=== PATIENT | male | born 1960 | race American Indian/Alaskan Native ===

== ENCOUNTER 2017-07-19 11:45 | Inpatient (IN) | payer OTHER ==
[2017-07-19] MEDS ORDERED: NACL 0.9% 500 ML 500 ML IV ONE (12:04)
[2017-07-19 12:35] LABS: Hematocrit 29.5 % (35.5-45.6); Hemoglobin 10.2 gm/dl (11.8-15.2); Mean Corpuscular HGB Conc 35 % (32-34); Mean Corpuscular Hemoglobin 32 pg (28-32); Mean Corpuscular Volume 93 fl (84-94); Red Blood Count 3.18 M/mm3 (3.65-5.03); Red Cell Distribution Width 17.8 % (13.2-15.2); White Blood Count 9.9 K/mm3 (4.5-11.0)
[2017-07-19 12:52] LABS: Creatine Kinase MB 2.3 ng/mL (0.0-4.0)
[2017-07-19 12:53] LABS: Alanine Aminotransferase 14 units/L (7-56); Albumin 2.1 g/dL (3.9-5); Albumin/Globulin Ratio 0.4 %; Alkaline Phosphatase 143 units/L (35-129); Anion Gap 20 mmol/L; BUN/Creatinine Ratio 83.33; Blood Urea Nitrogen 75 mg/dL (9-20); Calcium 7.9 mg/dL (8.4-10.2); Carbon Dioxide 20 mmol/L (22-30); Chloride 96.6 mmol/L (98-107); Creatine Kinase 64 units/L (55-170); Glucose 101 mg/dL (75-100); Potassium 4.5 mmol/L (3.6-5.0); Sodium 132 mmol/L (137-145); Total Protein 7.1 g/dL (6.3-8.2)
[2017-07-19 12:56] LABS: INR 6.7 (0.87-1.13); Partial Thromboplastin Time 80.4 Sec. (24.2-36.6)
--- NOTE | 2017-07-19 13:01 | XRay Report ---
PORTABLE CHEST INDICATION: Shortness of breath. History of CHF. COMPARISON: None similar at this institution. FINDINGS: Portable, frontal chest radiograph demonstrates moderate cardiomegaly and increased hazy bronchovascular markings centrally, possibly slight congestive. Right hemidiaphragm slightly elevated. Left AICD with single ventricular lead. Intact bones. CONCLUSION: Cardiomegaly and possible slight central congestion, as described. Thank you for the opportunity to participate in this patient's care.
[2017-07-19 13:12] LABS: Basophils % (Manual) 0 % (0.0-1.8); Blastocytes % (Manual) 0 %; Eosinophils % (Manual) 0 % (0.0-4.3)
[2017-07-19 13:14] LABS: Anisocytosis Few; Large Platelets Few; Macrocytosis 1+; Spherocytes Rare; Target Cells 2+
[2017-07-19 13:15] LABS: Burr Cells Rare; Diff Status Complete
[2017-07-19 13:18] LABS: Platelet Count 194 K/mm3 (140-440)
--- NOTE | 2017-07-19 13:43 | Emergency Department Report ---
ED General Adult HPI - General Chief complaint: Recheck/Abnormal Lab/Rx Stated complaint: ELEV PT/INR Time Seen by Provider: 07/19/17 12:27 Source: patient, EMS Mode of arrival: Wheelchair Limitations: No Limitations - History of Present Illness Initial comments: 56-year-old Male with past medical history A. fib, cardiomyopathy, defibrillator , and CHF presents to the hospital complains of supratherapeutic INR. Patient is in police custody and is a prisoner at the [facility]. They report an INR of 9.3. Just complains of generalized body pain and right hand swelling. Pain is moderate to severe, with palpation and movement. No relieving factors reported. No complaints of chest pain or shortness of breath - Related Data Allergies Allergy/AdvReac Type Severity Reaction Status Date / Time No Known Allergies Allergy Unverified 07/19/17 11:57 ED Review of Systems ROS: Stated complaint: ELEV PT/INR Other details as noted in HPI Comment: All other systems reviewed and negative Other: Constitutional: No fevers chills Eyes: No eye pain visual changes ENT: No ear pain or throat pain Neck: Denies pain Respiratory: Denies cough wheezing Cardiovascular: Denies chest pain, palpitations, syncope GI: Denies abdominal pain, nausea, vomiting, diarrhea : Denies dysuria Musculoskeletal: generalized pain Skin: Denies rash, lesions, erythema Neurologic: Denies headache, numbness, weakness Psychiatric: Denies suicidal ideation, hallucinations ED Past Medical Hx - Past Medical History Previous Medical History?: Yes Hx Congestive Heart Failure: Yes Additional medical history: AFIB - Surgical History Hx Internal Defibrillator: Yes - Social History Smoking Status: Never Smoker Substance Use Type: None ED Physical Exam - General Limitations: No Limitations - Other Other exam information: General: No limitations, patient is alert in no acute distress Head exam: Atraumatic, normocephalic Eyes exam: Normal appearance ENT: Moist mucous membrane, normal oropharynx Neck exam: Normal inspection, full range of motion, no meningismus nontender Respiratory exam: Patient lying in bed about 30 without respiratory distress. Diminished breath sounds at the bases Cardiovascular: Bradycardic irregular rhythm Abdomen: Soft, nondistended, and nontender, with normal bowel sounds, no rebound, or guarding Extremity: Swelling to right hand, mild warmth, and generalized tenderness extending into the wrist. Bilateral lymphedema Back: Normal Inspection, full range of motion, no tenderness Neurologic: Alert, oriented x3, cranial nerves intact, no motor or sensory deficit, stuttering speech Psychiatric: normal affect, normal mood Skin: Warm, dry, intact ED Course Vital Signs 07/19/17 07/19/17 07/19/17 11:58 13:40 14:56 Temperature 97.5 F L 98.3 F Pulse Rate 52 L 60 62 Respiratory 20 15 16 Rate Blood Pressure 83/55 93/61 86/63 O2 Sat by Pulse 100 98 97 Oximetry - Reevaluation(s) Reevaluation #1: 07/19/17 BP unchanged after 500ml IVF. further fluid held - Consultations Consultation #1: 07/19/17 Cardiology consulted and examined pt at bedside. Yod[facility] Lopez ED Medical Decision Making - Lab Data Result diagrams: 07/19/17 12:14 07/19/17 12:14 Lab Results 07/19/17 07/19/17 07/19/17 Range/Units 12:14 12:14 12:14 WBC 9.9 (4.5-11.0) K/mm3 RBC 3.18 L (3.65-5.03) M/mm3 Hgb 10.2 L (11.8-15.2) gm/dl Hct 29.5 L (35.5-45.6) % MCV 93 (84-94) fl MCH 32 (28-32) pg MCHC 35 H (32-34) % RDW 17.8 H (13.2-15.2) % Plt Count 194 (140-440) K/mm3 Add Manual Diff Complete Total Counted 100 Seg Neutrophils % Curve Cleaner Seg Neuts % (Manual) 97.0 H (40.0-70.0) % Band Neutrophils % 0 % Lymphocytes % (Manual) 1.0 L (13.4-35.0) % Reactive Lymphs % (Man) 0 % Monocytes % (Manual) 2.0 (0.0-7.3) % Eosinophils % (Manual) 0 (0.0-4.3) % Basophils % (Manual) 0 (0.0-1.8) % Metamyelocytes % 0 % Myelocytes % 0 % Promyelocytes % 0 % Blast Cells % 0 % Nucleated RBC % Not Reportable Seg Neutrophils # Man 9.6 H (1.8-7.7) K/mm3 Band Neutrophils # 0.0 K/mm3 Lymphocytes # (Manual) 0.1 L (1.2-5.4) K/mm3 Abs React Lymphs (Man) 0.0 K/mm3 Monocytes # (Manual) 0.2 (0.0-0.8) K/mm3 Eosinophils # (Manual) 0.0 (0.0-0.4) K/mm3 Basophils # (Manual) 0.0 (0.0-0.1) K/mm3 Metamyelocytes # 0.0 K/mm3 Myelocytes # 0.0 K/mm3 Promyelocytes # 0.0 K/mm3 Blast Cells # 0.0 K/mm3 WBC Morphology Not Reportable Hypersegmented Neuts Not Reportable Hyposegmented Neuts Not Reportable Hypogranular Neuts Not Reportable Smudge Cells Not Reportable Toxic Granulation Not Reportable Toxic Vacuolation Not Reportable Dohle Bodies Not Reportable Pelger-Huet Anomaly Not Reportable Rosalio Rods Not Reportable Platelet Estimate Appears normal Clumped Platelets Not Reportable Plt Clumps, EDTA Not Reportable Large Platelets Few Giant Platelets Not Reportable Platelet Satelliting Not Reportable Plt Morphology Comment Not Reportable RBC Morphology Not Reportable Dimorphic RBCs Not Reportable Polychromasia Not Reportable Hypochromasia Not Reportable Poikilocytosis Not Reportable Anisocytosis Few Microcytosis Not Reportable Macrocytosis 1+ Spherocytes Rare Pappenheimer Bodies Not Reportable Sickle Cells Not Reportable Target Cells 2+ Tear Drop Cells Not Reportable Ovalocytes Not Reportable Helmet Cells Not Reportable [place] Bodies Not Reportable [place] Rings Not Reportable Springer Cells Rare Bite Cells Not Reportable Crenated Cell Not Reportable Elliptocytes Not Reportable Acanthocytes (Spur) Not Reportable Rouleaux Not Reportable Hemoglobin C Crystals Not Reportable Schistocytes Not Reportable Malaria parasites Not Reportable [place] Bodies Not Reportable Hem Pathologist Commnt Sent to pathology PT 59.3 H (12.2-14.9) Sec. INR 6.70 H* (0.87-1.13) APTT 80.4 H* (24.2-36.6) Sec. Sodium 132 L (137-145) mmol/L Potassium 4.5 (3.6-5.0) mmol/L Chloride 96.6 L (98-107) mmol/L Carbon Dioxide 20 L (22-30) mmol/L Anion Gap 20 mmol/L BUN 75 H (9-20) mg/dL Creatinine 0.9 (0.8-1.5) mg/dL Estimated GFR > 60 ml/min BUN/Creatinine Ratio 83.33 % Glucose 101 H (75-100) mg/dL Calcium 7.9 L (8.4-10.2) mg/dL Total Bilirubin 10.30 H (0.1-1.2) mg/dL AST 29 (5-40) units/L ALT 14 (7-56) units/L Alkaline Phosphatase 143 H (35-129) units/L Total Creatine Kinase 64 (55-170) units/L CK-MB (CK-2) 2.3 (0.0-4.0) ng/mL CK-MB (CK-2) Rel Index 3.5 (0-4) Troponin T 0.014 (0.00-0.029) ng/mL NT-Pro-B Natriuret Pep (0-900) pg/mL Total Protein 7.1 (6.3-8.2) g/dL Albumin 2.1 L (3.9-5) g/dL Albumin/Globulin Ratio 0.4 % Blood Type Antibody Screen 07/19/17 07/19/17 Range/Units 12:14 14:24 WBC (4.5-11.0) K/mm3 RBC (3.65-5.03) M/mm3 Hgb (11.8-15.2) gm/dl Hct (35.5-45.6) % MCV (84-94) fl MCH (28-32) pg MCHC (32-34) % RDW (13.2-15.2) % Plt Count (140-440) K/mm3 Add Manual Diff Total Counted Seg Neutrophils % Seg Neuts % (Manual) (40.0-70.0) % Band Neutrophils % % Lymphocytes % (Manual) (13.4-35.0) % Reactive Lymphs % (Man) % Monocytes % (Manual) (0.0-7.3) % Eosinophils % (Manual) (0.0-4.3) % Basophils % (Manual) (0.0-1.8) % Metamyelocytes % % Myelocytes % % Promyelocytes % % Blast Cells % % Nucleated RBC % Seg Neutrophils # Man (1.8-7.7) K/mm3 Band Neutrophils # K/mm3 Lymphocytes # (Manual) (1.2-5.4) K/mm3 Abs React Lymphs (Man) K/mm3 Monocytes # (Manual) (0.0-0.8) K/mm3 Eosinophils # (Manual) (0.0-0.4) K/mm3 Basophils # (Manual) (0.0-0.1) K/mm3 Metamyelocytes # K/mm3 Myelocytes # K/mm3 Promyelocytes # K/mm3 Blast Cells # K/mm3 WBC Morphology Hypersegmented Neuts Hyposegmented Neuts Hypogranular Neuts Smudge Cells Toxic Granulation Toxic Vacuolation Dohle Bodies Pelger-Huet Anomaly Rosalio Rods Platelet Estimate Clumped Platelets Plt Clumps, EDTA Large Platelets Giant Platelets Platelet Satelliting Plt Morphology Comment RBC Morphology Dimorphic RBCs Polychromasia Hypochromasia Poikilocytosis Anisocytosis Microcytosis Macrocytosis Spherocytes Pappenheimer Bodies Sickle Cells Target Cells Tear Drop Cells Ovalocytes Helmet Cells [place] Bodies [place] Rings Springer Cells Bite Cells Crenated Cell Elliptocytes Acanthocytes (Spur) Rouleaux Hemoglobin C Crystals Schistocytes Malaria parasites [place] Bodies Hem Pathologist Commnt PT (12.2-14.9) Sec. INR (0.87-1.13) APTT (24.2-36.6) Sec. Sodium (137-145) mmol/L Potassium (3.6-5.0) mmol/L Chloride (98-107) mmol/L Carbon Dioxide (22-30) mmol/L Anion Gap mmol/L BUN (9-20) mg/dL Creatinine (0.8-1.5) mg/dL Estimated GFR ml/min BUN/Creatinine Ratio % Glucose (75-100) mg/dL Calcium (8.4-10.2) mg/dL Total Bilirubin (0.1-1.2) mg/dL AST (5-40) units/L ALT (7-56) units/L Alkaline Phosphatase (35-129) units/L Total Creatine Kinase (55-170) units/L CK-MB (CK-2) (0.0-4.0) ng/mL CK-MB (CK-2) Rel Index (0-4) Troponin T (0.00-0.029) ng/mL NT-Pro-B Natriuret Pep 7153 H (0-900) pg/mL Total Protein (6.3-8.2) g/dL Albumin (3.9-5) g/dL Albumin/Globulin Ratio % Blood Type O NEGATIVE Antibody Screen Negative - EKG Data -: EKG Interpreted by Me (afib rat 59, pvc's nonspecific intraventicular block.) - Radiology Data Radiology results: report reviewed (chest x-ray: Cardiomegaly a possible slight central congestion) - Medical Decision Making Plan to admit for furhter tx, cmg, chf, afib, mary, coumadin tox. - Differential Diagnosis CHF, Coumadin toxicity, A. fib, cardiac myopathy Critical Care Time: No Critical care attestation.: If time is entered above; I have spent that time in minutes in the direct care of this critically ill patient, excluding procedure time. ED Disposition Clinical Impression: Myalgia, Coumadin toxicity, Swelling of right hand, Cardiomegaly, Elevated BUN , Hypotension Disposition: [id number] OP ADMIT IP TO THIS HOSP Is pt being admited?: Yes Condition: Stable Time of Disposition: 13:40
--- NOTE | 2017-07-19 13:45 | Admit Criteria Form ---
Admission Criteria Documentation: GENERAL ADMISSION CRITERIA (Place 'X' for any and all applicable criteria): Admission is indicated for ANY ONE of the following: [ X]I. Hemodynamic instability as indicated by ANY ONE of the following(1)(2 )(3)(4)(5): [X ]a) Vital sign abnormality not readily corrected by appropriate treatment within 12 to 24 hours indicated by ANY ONE of the following: [ X]i) Hypotension [ ]ii) Symptomatic Tachycardia unresponsive to treatment (eg , analgesia, fluids, sedation as indicated) [ ]iii) Orthostatic vital sign changes unresponsive to treatment (eg, fluids) [ ]b) Vital sign abnormality that is severe indicated by ANY ONE of the following: [ ]i) Inadequate perfusion indicated by ANY ONE of the following: [ ]1) Lactic acidosis (greater than 2 mmol/L) [ ]2) New abnormal capillary refill (greater than 3 seconds) [ ]3) Other metabolic acidosis (arterial pH less than 7.35) not otherwise explained [ ]4) Reduced urine output [ ]5) Altered mental status [ ]6) Myocardial Ischemia [ ]v) Mean arterial pressure[A] less than 60 mm Hg [ ]vi) Mean arterial pressure[A] less than 70 mm Hg after 30 minutes of appropriate treatment (eg, fluid resuscitation) [ ]vii) IV inotropic or vasopressor medication required to maintain adequate blood pressure or perfusion [ ]viii) Sustained heart rate greater than 120 beats per minute in adult or child 6 years or older[B]] [ ]II. Hypertension requiring inpatient treatment as indicated by ANY ONE of the following(6)(7)(8): [ ]a) SBP greater than 220 mm Hg or DBP greater than 120 mm Hg despite treatment [ ]b) SBP greater than 140 mm Hg or DBP greater than 100 mm Hg with evidence of acute end organ damage as indicated by ANY ONE of the following: [ ]i) Encephalopathy [ ]ii) Acute renal failure as indicated by new onset of ANY ONE of the following(9)(10)(11)(12)(13): [ ]1) A 3-fold rise in serum creatinine from baseline [ ]2) Serum creatinine greater than 4 mg/dL ( 354 micromoles/L) with acute rise greater than 0.5 mg/dL (44.2 micromoles/L) [ ]3) Reduction of more than 75% in estimated glomerular filtration rate from baseline [ ]4) Estimated glomerular filtration rate less than 35 mL/min/1.73m2 (0.59 mL/sec/1.73m2) in child up to 18 years of age [ ]5) Cessation of urine output indicated by ALL of the following: [ ]A. Adequate volume status [ ]B. Inadequate urine output as indicated by ANY ONE of the following: [ ]a. Urine output less than 0.3 mL/kg/hr for 24 hours [ ]b. Anuria (urine output less than 0.1 mL/kg/hr) for 12 hours [ ]iii) Aortic dissection [ ]iv) Myocardial ischemia [ ]v) Left ventricular heart failure [ ]vi) Retinal hemorrhage [ ]vii) Other significant finding [ ]c) Hypertension in child requiring inpatient treatment as indicated by ALL of the following(14)(15)(16): [ ]i) Outpatient treatment not effective, not available, or not appropriate [ ]ii) SBP or DBP greater than 95th percentile for age [ ]iii) Evidence of acute end organ damage as indicated by ANY ONE of the following: [ ]1) Altered mental status [ ]2) Acute renal failure as indicated by new onset of ANY ONE of the following(9)(10)(11)(12)(13): [ ]A. A 3-fold rise in serum creatinine from baseline [ ]B. Serum creatinine greater than 4 mg/dL (354 micromoles/L) with acute rise greater than 0.5 mg/dL (44.2 micromoles/L) [ ]C. Reduction of more than 75% in estimated glomerular filtration rate from baseline [ ]D. Estimated glomerular filtration rate less than 35 mL/min/1.73m2 (0.59 mL/sec/1.73m2)in child up to 18 years of age [ ]E. Cessation of urine output indicated by ALL of the following: [ ]a. Adequate volume status [ ]b. Inadequate urine output as indicated by ANY ONE of the following: [ ]1) Urine output less than 0.3 mL/kg/hr for 24 hours [ ]2) Anuria (urine output less than 0.1 mL/kg/hr) for 12 hours [ ]3) Severe headache [ ]4) Visual disturbance [ ]5) Retinal hemorrhage [ ]6) Other significant finding [ ]III. Acute cardiac or peripheral ischemia as indicated by ANY ONE of the following: [ ]a) Acute coronary syndrome(17)(18) [ ]b) Acute peripheral ischemia (eg, pulseless, cool, mottled, or cyanotic extremity)(19) [ ]IV. Cardiac arrhythmias or findings of immediate concern indicated by ANY ONE of the following(20)(21): [ ]a) Heart rhythms that are inherently dangerous or unstable indicated by ANY ONE of the following(22)(23)(24): [ ]i) Resuscitated ventricular fibrillation or cardiac arrest [ ]ii) Ventricular escape rhythm [ ]iii) Sustained ventricular tachycardia (30 seconds or more of ventricular rhythm at greater than 100 beats per minute) [ ]iv) Nonsustained ventricular tachycardia and ANY ONE of the following: [ ]1) Suspected cardiac ischemia as cause or consequence of ventricular tachycardia [ ]2) In setting of acute myocarditis [ ]b) Unstable cardiac conduction defects indicated by ANY ONE of the following(24)(25)(26): [ ]i) Type II second-degree atrioventricular block [ ]ii) Third-degree atrioventricular block [ ]iii) New-onset left bundle branch block with suspected myocardial ischemia [ ]c) Any heart rhythm and ANY ONE of the following(22)(23)(27)(28)( 29): [ ] i) Continuous long-term ECG monitoring needed (eg, initiation of drug requiring monitoring for more than 24 hours) [ ] ii) Patient has automatic implanted cardioverter defibrillator that is repeatedly firing, malfunctioning, or in need of immediate adjustment of settings beyond the scope of ambulatory or observation care. [ ]d) Heart rhythms of concern due to ANY ONE of the following: [ ]i) Hypotension [ ]ii) Respiratory distress [ ]iii) Association with other significant symptoms (eg, bradycardia with syncope or ongoing dizziness, supraventricular tachycardia with chest pain) (27)(28) (30) [ ] V. Severe heart failure as indicated by ANY ONE of the following ( 31)(32): [ ]a) Respiratory distress [ ]b) Hypotension [ ]c) Anasarca (refractory to outpatient therapy) [ ]d) Cardiac arrhythmias of immediate concern [ ]e) Myocardial ischemia [ ]. Respiratory abnormalities, including ANY ONE of the following(33)(34) (35)(36): [ ]a) Respiratory rate greater than 30 breaths per minute unresponsive to treatment [A] [ ]b) New saturation of arterial oxygen less than 90% [ ]c) New partial pressure of carbon dioxide greater than 44 mm Hg ( 5.9 kPa) [ ]d) Supplemental oxygen or respiratory treatments needed that are new or not performable at other levels of care [ ]e) New-onset cyanosis [ ]f) Inability to protect airway [ ]g) Chronic lung disease with severe deterioration (not responsive to emergency and observation care treatment as appropriate) as indicated by ANY ONE of the following(34)(36 ): [ ]i) SaO2 5% below baseline in patient with chronic hypoxemia [ ]ii) New requirement for supplemental oxygen to keep SaO2 at baseline or acceptable level [ ]iii) Required supplemental oxygen performable only in acute inpatient setting [ ]iv) Severe airflow or ventilation abnormalities [ ]v) Previously mobile patient unable to walk between rooms [ ]vi Inability to eat or sleep due to dyspnea [ ]vii) Rapid rate of exacerbation onset [ ]viii) Altered mental status ]VII. Severe airflow or ventilation abnormalities (not responsive to emergency and observation care treatment as appropriate) as indicated by ANY ONE of the following(33)(34)(35)(37): [ ]a) PCO2 greater than 42 mm Hg (5.6 kPa) and pH less than 7.35 (new ) [ ]b) Documented PCO2 increased more than 5 mm Hg (0.7 kPa) from disease baseline [ ]c) Airflow measurements [B] less than 60% of previous best or predicted (eg, peak expiratory flow rate less than 300 L/minute) despite intensive emergent treatment [C] [ ]d) Required respiratory treatments that are performable only in acute inpatient setting [ ]VIII. Impending or actual respiratory arrest ( Also use Respiratory Failure GRG for severe respiratory disease and long-term mechanical ventilation patients) [ ]IX. Neurologic abnormalities, including ANY ONE of the following: [ ]a) New findings that suggest ANY ONE of the following: [ ]i) [employer] infection(38) [ ]ii) Cerebral bleeding, ischemia, or vasospasm(39)(40) [ ]iii) Increased intracranial pressure, hydrocephalus, or cerebral edema(41)(42)(43) [ ]iv) Spinal cord injury(44) [ ]b) Uncontrolled seizures(45) [ ]c) New-onset coma (eg, Mena coma scale score less than 9) or unexplained abnormal mental status (eg, Williams coma scale score less than 14) [D](41)(46)(47) [ ]X. New-onset severe neurologic findings requiring inpatient care; examples include(42)(48)(49): [ ]a) Papilledema [ ]b) Cerebral edema [ ]c) Mass effect on CT scan [ ]XI. Suspected acute intra-abdominal process with peritoneal signs, abdominal mass, or similar findings (50)(51)(52) [ ]XII. Severe physiologic disorder remaining after emergency or observation level care (as appropriate) as indicated by ANY ONE of the following (53): [ ]a) Significant dehydration [ ]b) Diabetic ketoacidosis [ ]c) Hyperglycemic hyperosmolar state (eg, osmolality greater than 320 mOsm/kg (mmol/kg) [ ]d) Hypoglycemia [ ]e) Other (new) acid-base disorder with pH less than 7.35 or greater than 7.5(54) [ ]f) Thyroid storm (55) [ ]g) Myxedema coma (55) [ ]XIII. Abdominal abnormalities with ANY ONE of the following(56)(57): [ ]a) Absent bowel sounds with complete ileus [ ]b) Signs of intestinal obstruction or peritonitis [E] [ ]c) Nausea and vomiting that cannot be controlled with outpatient or observation care [ ]XIV. Acute renal failure as indicated by new onset of ANY ONE of the following(9)(10)(11)(12)(13): [ ]a) A 3-fold rise in serum creatinine from baseline [ ]b) Serum creatinine greater than 4 mg/dL (354 micromoles/L) with acute rise greater than 0.5 mg/dL (44.2 micromoles/L) [ ]c) Reduction of more than 75% in estimated glomerular filtration rate from baseline [ ]d) Estimated glomerular filtration rate less than 35 mL/min/ 1.73m2 (0.59 mL/sec/1.73m2) in child up to 18 years of age [ ]e) Cessation of urine output indicated by ALL of the following: [ ]i) Adequate volume status [ ]ii) Inadequate urine output as indicated by ANY ONE of the following: [ ]1) Urine output less than 0.3 mL/kg/hr for 24 hours [ ]2) Anuria (urine output less than 0.1 mL/kg/hr) for 12 hours [ ]XV. Significant uremic complications as indicated by ANY ONE of the following(58)(59)(60): [ ]a) Outpatient therapy is ineffective or not feasible for ANY ONE of the following: [ ]i) Severe heart failure [ ]ii) Severehypertension [ ]iii) Pleural effusion [ ]iv) Pericarditis or pericardial effusion [ ]b) Cardiac arrhythmias of immediate concern [ ]c) Intractable nausea or vomiting [ ]d) Recurrent seizures [ ]e) Encephalopathy [ ]f) Bleeding abnormalities (eg, platelet dysfunction) with active (eg, gastrointestinal) bleeding [ ]g) Dialysis indicated before long-term access or ambulatory arrangements can be made [ ]h) Significant metabolic or electrolyte abnormalities (eg, severe acidosis or hyperkalemia) [ ]XVI. High fever or other high-risk infection situation as indicated by ANY ONE of the following(61)(62)(63)(64): [ ]a) Outpatient and observation care antimicrobial treatment unavailable, not effective, or not appropriate [ ]b) Documented bacteremia [ ]c) Temperature greater than 40.5 degrees C (104.9 degrees F) ( oral) [ ]d) Temperature greater than 39.5 degrees C (103.1 degrees F) ( oral) or less than 36 degrees C (96.8 degrees F) (rectal) that does not respond to e treatment and observation care [ ] XVII. Temperature less than 95 degrees F (35 degrees C)(rectal)(65) [ ] XVIII. Severe nutritional abnormalities as indicated by ALL of the following (66)(67): [ ]a) Inability to tolerate or establish sufficient oral or other enteral nutrition in outpatient setting [ ]b) Parenteral nutrition regimen need that must be implemented on inpatient basis [ ] XIX. Severe electrolyte abnormalities indicated by ALL of the following(68) (69)(70): [ ]a) Electrolytes and associated findings are not as expected for patient baseline or acceptable treatment effects. [ ]b) Severe abnormalities indicated by ANY ONE of the following: [ ]i) Sodium less than 130 mEq/L (mmol/L) (new) [ ]ii)Sodium less than 135 mEq/L (mmol/L) with ANY ONE of the following: [ ]1) Uncorrectable (to near normal or chronic baseline) after trial of outpatient and emergency treatment [ ]2) Altered mental status [ ]3) Seizures [ ]4) Severe medical etiology requiring inpatient management (eg, heart failure, hypovolemia) [ ]iii) Sodium greater than 155 mEq/L (mmol/L) [ ]iv) Sodium greater than 150 mEq/L (mmol/L) with ANY ONE of the following: [ ]1) Uncorrectable (to near normal or chronic baseline) with outpatient and emergency treatment [ ]2) Altered mental status [ ]3) Seizures [ ]4) Severe medical etiology (eg, hypovolemia, diabetes insipidus) [ ]v) Potassium less than 2.5 mEq/L (mmol/L) despite outpatient and emergency treatment [ ]vi) Potassium less than 3 mEq/L (mmol/L) with ANY ONE of the following: [ ]1) Weakness [ ]2) Cardiac abnormality (eg, arrhythmia, conduction disturbance) [ ]3) Cardiac ischemia [ ]4) Ileus [ ]5) Ongoing medical cause requiring inpatient management (eg, acute renal wasting or SIADH) [ ]6) Other severe symptoms [ ]vii) Potassium greater than 6.5 mEq/L (mmol/L) [ ]viii) Potassium greater than 5 mEq/L (mmol/L) with ANY ONE of the following: [ ]1) Uncorrectable (to near normal or chronic baseline) with outpatient and emergency treatment [ ]2) Severe ECG findings [F] [ ]3) Acute worsening of renal failure (creatinine greater than 2.5 mg/dL (221 micromoles/L) or significant elevation for age and size) [ ]4) Severe weakness [ ]5) Severe medical etiology (eg, hemolysis, infection, drug overdose) [ ]ix) Calcium less than 7 mg/dL (1.75 mmol/L) despite outpatient and emergency treatment (72) [ ]x) Calcium less than 8 mg/dL (2 mmol/L) with significant symptoms or findings; examples include(72): [ ]1) Altered mental status [ ]2) Muscle spasms [ ]3) Seizures [ ]4) Breathing difficulty [ ]5) Cardiac abnormality (eg, arrhythmia or conduction disturbance) [ ]xi) Calcium greater than 14 mg/dL (3.5 mmol/L)(72) [ ]xii) Calcium greater than 12 mg/dL (3 mmol/L) with ANY ONE of the following(72): [ ]1) Uncorrectable (to near normal or chronic baseline) with outpatient and emergency treatment [ ]2) Significant dehydration or hypovolemia as indicated by ALL of the following(70)(73)(74): [ ]A. Not resolved with initial treatments [ ]B. Clinically significant dehydration as indicated by ANY ONE of the following: [ ]a. Vomiting refractory to outpatient treatment (ie, precluding oral rehydration) [ ]b. Inability to drink [ ]c. Hypernatremia or other electrolyte abnormality unable to be corrected with outpatient and emergency treatment [ ]d. Failure to remain hydrated with outpatient therapy [ ]e. Reduced urine output [ ]f. Hypotension [ ]g. Serious cause for dehydration requiring acute hospitalization (eg, bowel obstruction, increased intracranial pressure, infectious cause) [ ]h. Child with ANY ONE of the following(75): [ ]1) Severe abdominal tenderness [ ]2) Adequate care not available at home [ ]3) Severe dehydration ( greater than 9% loss of body weight) [ ]4) Significant symptoms or findings; examples include: [ ]A. Altered mental status [ ]B. Cardiac abnormality (eg, arrhythmia, conduction disturbance) [ ]C. Malignant etiology requiring inpatient treatment [ ]xiii) Phosphorus less than 1 mg/dL (0.32 mmol/L) [ ]xiv) Phosphorus less than 1.5 mg/dL (0.48 mmol/L) with ANY ONE of the following: [ ]1) Patient unresponsive to outpatient and emergency treatment [ ]2) Significant symptoms or findings; examples include: [ ]A. Weakness [ ]B. Altered mental status [ ]C. Breathing difficulty [ ]D. Seizures [ ]E. Rhabdomyolysis [ ]xv) Phosphorus greater than 10 mg/dL (3.2 mmol/L) [ ]xvi) Phosphorus greater than 4.5 mg/dL (1.45 mmol/L) (new) with ANY ONE of the following: [ ]1) Severe medical etiology (eg, crush injury, acute renal failure) [ ]2) Associated hypocalcemia with significant findings; examples include: [ ]A. Neurologic symptoms [ ]B. Altered mental status [ ]C. Muscle spasms [ ]D. Seizures [ ]E. Breathing difficulty [ ]F. Cardiac abnormality (eg, arrhythmia, conduction disturbance) [ ]xvii) Magnesium less than 1 mg/dL (0.41 mmol/L) [ ]xviii) Magnesium less than 1.5 mg/dL (0.62 mmol/L) with ANY ONE of the following: [ ]1) Patient unresponsive to outpatient and emergency treatment [ ]2) Associated hypocalcemia with significant findings; examples include: [ ]A. Altered mental status [ ]B. Muscle spasms [ ]C. Seizures [ ]D. Breathing difficulty [ ]E. Cardiac abnormality (eg, arrhythmia , conduction disturbance) [ ]3) Associated hypokalemia (potassium less than 3 mEq/L (mmol/L)) with risk of arrhythmia [ ]xix) Magnesium greater than 4 mEq/L (2 mmol/L) [ ]xx) Magnesium greater than 2.5 mEq/L (1.25 mmol/L) with significant symptoms or findings; examples include: [ ]1) Weakness [ ]2) Altered mental status [ ]3) Cardiac abnormality (eg, arrhythmia, conduction disturbance) [ ]4) Breathing difficulty [ ]5) Severe medical etiology (eg, renal failure, hypovolemia) [ ]xxi) Uric acid greater than 20 mg/dL (1190 micromoles/L)(76) [ ]xxii) Uric acid greater than 8 mg/dL (476 micromoles/L) with significant symptoms or findings of tumor lysis syndrome; examples include(76): [ ]1) Creatinine greater than 1.5 times upper limit of normal [ ]2) Cardiac abnormality (eg, arrhythmia, conduction disturbance) [ ]3) Seizure [ ]XX. Acute blood loss causing significant abnormality as indicated by ANY ONE of the following(77)(78): [ ]a) Hemoglobin less than 10 g/dL (100 g/L) (not baseline) [ ]b) Hematocrit less than 30% (0.30) (not baseline) [ ]c) Repeat hematocrit decreased more than 2% (0.02) [ ]d) Uncontrolled bleeding [ ]XXI. Severe anemia indicated by ANY ONE of the following(78)(79): [ ]a) Altered mental status [ ]b) Chest pain [ ]c) Exertional dyspnea [ ]d) Syncope [ ]e) Other findings suggesting inadequate perfusion [ ]f) Treatment with transfusion or volume replacement is ineffective at resolving ANY ONE of the following [G]: [ ]i) Tachycardia for age [ ]ii) Orthostatic vital sign changes as indicated by ANY ONE of the following(80): [ ]1) Fall in SBP of 20 mm Hg or more 1 to 3 minutes after patient sits or stands from recumbent position [ ]2) Fall in DBP of 10 mm Hg or more 1 to 3 minutes after patient sits or stands from recumbent position [ ]XXII. High-risk low platelet count as indicated by ANY ONE of the following( 81)(82): [ ]a) Severe or life-threatening bleeding (eg, intracranial, major gastrointestinal, or extensive mucosal bleeding), with any reduced platelet count [ ]b) Platelet count less than 20,000/mm3 (20 x109/L) with any active bleeding [ ]c) Platelet count less than 10,000/mm3 (10 x109/L) with minor purpura or petechiae [ ]d) Platelet count less than 5000/mm3 (5 x109/L) [ ]e) Low platelet count with hemolytic anemia [ ]XXIII. Disseminated intravascular coagulation(77)(83) [ ]XXIV. Severe adverse drug or systemic toxin reaction requiring inpatient treatment; examples include(84)(85): [ ]a) Serotonin syndrome(86) [ ]b) Neuroleptic malignant syndrome(86) [ ]c) Cholinergic syndrome with severe symptoms (eg, bronchorrhea, weakness, mental status changes, seizures) [ ]d) Sympathetic syndrome with severe symptoms (eg, seizures, mental status changes, cardiac dysrhythmias) [ ]e) Anticholinergic syndrome [ ]XXV. Severe pain requiring acute inpatient management as indicated by ALL of the following (87)(88)(89): [ ]a) Continuous or frequent (eg, every 2 to 4 hours) parenteral analgesics required [H] [ ]b) Rapid improvement expected from treatment or acute intervention (eg, surgery, anesthesia procedure) [ ]XXVI.Severe behavioral health issues judged unmanageable at a lower level of care (eg, residential) in a patient who is ANY ONE of the following(91) [ ]a) Acutely suicidal [ ]b) A danger to self (eg, self-mutilating or suicidal behavior) [ ]c) A danger to others (eg, assaultive or homicidal behavior) [ ]d) Incapacitated because of grave disability (eg, inability to provide for self at lower level of care) (92) [ ]XXVII. Inpatient monitoring needed; examples include(1)(3)(87)(93)(94)(95)(96 ): [ ]a) Vital signs, neurologic signs, or vascular checks more frequently than every 4 hours [ ]b) Cardiac or respiratory monitoring beyond the scope (eg, over 24 hours) of observation care [ ]c) Pulmonary artery catheter monitoring [ ]d) Suspected compartment syndrome(97) (98) [ ]e) Cerebral bleeding, hydrocephalus, or vasospasm monitoring [ ]f) Increased intracranial pressure or cerebral edema monitoring [ ]g) monitoring [ ]XXVIII. Treatment requiring inpatient care; examples include: [ ]a) IV fluid to replace significant ongoing losses (greater than 3 L/m2 per day)(53) [ ]b) High concentration oxygen (greater than 40%)(33)(99)(100) [ ]c) Frequent respiratory therapy (more frequently than every 4 hours) to maintain airflow rates greater than 60% of baseline(33)(99)(100) [ ]d) Epidural analgesia(87) [ ]e) IV anticoagulation, vasoactive, or antiarrhythmic medication(19 )(23) [ ]f) Acute thrombolytics (generally require 24 hours of observation )(101)(102) [ ]XXIX. Emergency procedures needed; examples include: [ ]a) Emergency inpatient surgery [ ]b) Temporary pacemaker placement(103) [ ]c) Chest tube placement with active evacuation (eg, suction, drainage)(104) [ ]d) Emergent cardioversion(105) [ ]e) Emergent cardiac or vascular procedures (eg, cardiac catheterization, angioplasty) (17)(18) [ ]f) Emergent dialysis access placement and institution(10)(106) [ ]g) Emergent pericardiocentesis(107) [ ]h) Emergent plasmapheresis or leukapheresis(83) [ ]i) Emergent tracheostomy The original [employer] content created by [employer] has been revised. The portions of the content which have been revised are identified through the use of italic text or in bold, and [employer] has neither reviewed nor approved the modified material. All other unmodified content is copyright [employer]. Please see references footnoted in the original [employer] edition 2016 Admission Criteria Met: Yes
[2017-07-19] MEDS ORDERED: TYLENOL PO ONE (13:56)
--- NOTE | 2017-07-19 14:32 | Consultation ---
History of Present Illness Consult date: 07/19/17 Requesting physician: ERIKA ESCAMILLA Consult reason: atrial fibrillation History of present illness: The pt is a 56 YO male with a past medical history significant for atrial fibrillation (anticoagulated with coumadin), CMP, AICD in situ and HTN. Pt is a prisoner and presented from intermediate following INR check which showed INR ~9. On evaluation, pt denies any cardiac complaints. Pt denies any overt signs of bleeding. H/H 10.2/29.5. Total bilirubin noted to be 10.3 and pt noted to be jaundiced; AST and ALT WNL. Pt c/o generalized body pain x 2 days [employer]. Pt reports history of "weak heart" for which an AICD was placed in [facility] in 2014. Pt does not know the device's motor tester. Pt denies any device discharges. CXR shows cardiomegaly with mild central venous congestion and single chamber AICD. 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 denies: smoking, alcohol abuse, prescription drug abuse Medications and Allergies Allergies Allergy/AdvReac Type Severity Reaction Status Date / Time No Known Allergies Allergy Unverified 07/19/17 11:57 Review of Systems All systems: negative Musculoskeletal: other (generalized pain) Physical Examination Vital Signs Temp Pulse Resp BP Pulse Ox 97.5 F L 52 L 20 83/55 100 07/19/17 11:58 07/19/17 11:58 07/19/17 11:58 07/19/17 11:58 07/19/17 11:58 General appearance: no acute distress HEENT: Positive: PERRL, Normocephaly, Mucus Membranes Moist, Other (icteric sclera) Neck: Positive: neck supple, trachea midline Cardiac: Positive: irregularly irregular, S1/S2 Lungs: Positive: clear to auscultation Neuro: Positive: Grossly Intact, Cranial Nerve 2-12 Intact Abdomen: Positive: Soft, Active Bowel Sounds. Negative: Tender Skin: Positive: Clear, Other (BLE stasis dermatitis; jaundiced). Negative: Rash Musculoskeletal: No Pain, Normal Range of Motion Extremities: Present: +2 Edema (BLE pitting) Results 07/19/17 12:14 07/19/17 12:14 Cardiac Enzymes 07/19/17 Range/Units 12:14 AST 29 (5-40) units/L CK-MB (CK-2) 2.3 (0.0-4.0) ng/mL Coagulation 07/19/17 Range/Units 12:14 PT 59.3 H (12.2-14.9) Sec. INR 6.70 H* (0.87-1.13) APTT 80.4 H* (24.2-36.6) Sec. CBC 07/19/17 Range/Units 12:14 WBC 9.9 (4.5-11.0) K/mm3 RBC 3.18 L (3.65-5.03) M/mm3 Hgb 10.2 L (11.8-15.2) gm/dl Hct 29.5 L (35.5-45.6) % Plt Count 194 (140-440) K/mm3 Comprehensive Metabolic Panel 07/19/17 Range/Units 12:14 Sodium 132 L (137-145) mmol/L Potassium 4.5 (3.6-5.0) mmol/L Chloride 96.6 L (98-107) mmol/L Carbon Dioxide 20 L (22-30) mmol/L BUN 75 H (9-20) mg/dL Creatinine 0.9 (0.8-1.5) mg/dL Glucose 101 H (75-100) mg/dL Calcium 7.9 L (8.4-10.2) mg/dL AST 29 (5-40) units/L ALT 14 (7-56) units/L Alkaline Phosphatase 143 H (35-129) units/L Total Protein 7.1 (6.3-8.2) g/dL Albumin 2.1 L (3.9-5) g/dL - Imaging and Cardiology Echo: pending EKG: image reviewed EKG interpretations - Telemetry EKG Rhythm: Atrial Fibrillation - EKG Supraventricular dysrhythmia: atrial fibrillation Assessment and Plan Assessment: Supratherapeutic INR - INR 6.7 at admission. Atrial fibrillation with CVR AICD in situ HTN Anemia Hyperbilirubinemia / jaundice Hypocalcemia Hyponatremia Hypoalbuminemia Chronic venous insufficiency Plan: Request medical records from [facility]. Obtain echo. Consider supplementation of serum calcium per primary. Recommend continuing to hold coumadin at this time. Goal INR is 2-3. Would not recommend administration of reversal agents and/or FFP as there are currently no overt signs of bleeding. Repeat CBC, BMP and INR in AM. Recommend GI consultation in setting of hyperbilirubinemia and jaundice. Pt could have obstructive jaundice contributing to supratherapeutic INR. Consider abdomen CT and/or GB U/S. Assessment and plan reviewed with pt at bedside. The patient has been seen in conjunction with Dr. Cooley who agrees with the assessment and plan of care.
--- NOTE | 2017-07-19 20:41 | History and Physical Report ---
History of Present Illness Date of admission: 07/19/17 14:36 Chief complaint: I dont feel good History of present illness: 56 YO Male with CHF, Atrial Fib, Obesity presents to ED for evaluation. Pt states that he does not feel good, and has been feeling bad for the past week or so. Pt seen and evaluated in ED and found to have INR of 9.3 without stigmata of acute bleeding and in jaundiced on exam. Pt denies fever, chills, CP , Palpitations, NVD, trauma, recent ill contacts, unintentional weight loss, night sweats. Pt is incarcerated. 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 denies: smoking, alcohol abuse, prescription drug abuse Family history: hypertension Medications and Allergies Allergies Allergy/AdvReac Type Severity Reaction Status Date / Time No Known Allergies Allergy Unverified 07/19/17 11:57 Home Medications Medication Instructions Recorded Confirmed Last Taken Type Unobtainable 07/19/17 07/19/17 Unknown History Active Meds: Active Medications Acetaminophen (Tylenol) 650 mg PO Q4H PRN PRN Reason: Pain MILD(1-3)/Fever >100.5/PAN Albuterol (Proventil) 2.5 mg IH Q4HRT PRN PRN Reason: Shortness Of Breath Famotidine (Pepcid) 10 mg PO BID DEBBI Review of Systems Constitutional: weakness, no weight loss, no weight gain, no fever, no chills, no sweats, no night sweats Ears, nose, mouth and throat: no ear pain, no ear discharge, no tinnitis, no decreased hearing, no nasal congestion, no nasal discharge Cardiovascular: edema, no chest pain, no orthopnea, no palpitations, no lightheadedness Respiratory: no cough, no cough with sputum, no excessive sputum, no hemoptysis , no shortness of breath Gastrointestinal: no abdominal pain, no nausea, no vomiting, no diarrhea Genitourinary Male: no dysuria, no hematuria, no flank pain, no discharge, no urinary frequency Rectal: no pain, no incontinence, no bleeding Musculoskeletal: no neck stiffness, no neck pain, no shooting arm pain, no arm numbness/tingling, no shooting leg pain Integumentary: no rash, no pruritis, no redness, no sores, no wounds Neurological: no transient paralysis, no paralysis, no weakness, no parathesias , no numbness Psychiatric: no memory loss, no change in sleep habits, no sleep disturbances, no insomnia, no change in appetite, no change in libido, no suicidal ideation Endocrine: no heat intolerance, no polyphagia, no excessive thirst, no polydipsia, no polyuria Hematologic/Lymphatic: no easy bruising, no easy bleeding Allergic/Immunologic: no urticaria, no allergic rhinitis, no wheezing Exam - Constitutional Vitals: Temp Pulse Resp BP Pulse Ox 97.6 F 62 20 101/58 97 07/19/17 20:07 07/19/17 20:07 07/19/17 20:07 07/19/17 20:07 07/19/17 20:26 General appearance: Present: mild distress - EENT Eyes: Present: PERRL, scleral icterus ENT: hearing intact, clear oral mucosa - Neck Neck: Present: supple, normal ROM - Respiratory Respiratory effort: normal Respiratory: bilateral: CTA - Cardiovascular Rhythm: irregularly irregular Heart Sounds: Present: S1 & S2. Absent: rub, click - Extremities Extremities: pulses symmetrical, No edema Extremity abnormal: edema Peripheral Pulses: within normal limits - Abdominal General gastrointestinal: Present: soft, non-tender, non-distended, normal bowel sounds Male genitourinary: Present: normal - Integumentary Integumentary: Present: clear, warm, dry - Musculoskeletal Musculoskeletal: generalized weakness - Psychiatric Psychiatric: appropriate mood/affect, intact judgment & insight - Neurologic Neurologic: CNII-XII intact, moves all extremities Results - Labs CBC & Chem 7: 07/19/17 12:14 07/19/17 12:14 Labs: Abnormal lab results 07/19/17 Range/Units 14:38 HDL Cholesterol 6 L (40-59) mg/dL Assessment and Plan - Patient Problems (1) CHF (congestive heart failure) Current Visit: Yes Status: Acute Qualifiers: Congestive heart failure type: C Congestive heart failure chronicity: C Plan to address problem: Cardiology consulted, cardiac enzymes, Echo, fluid restriction, supportive care , afterload reduction as tolerated, telemetry (2) Metabolic acidosis Current Visit: Yes Status: Acute Plan to address problem: IVF replacement, repeat bmp, (3) Coumadin toxicity Current Visit: Yes Status: Acute Qualifiers: Encounter type: E Injury intent: I Plan to address problem: Hold coumadin, repeat coags. (4) Jaundice Current Visit: Yes Status: Acute Plan to address problem: Abdominal ultrasound, (5) Hyponatremia syndrome Current Visit: Yes Status: Acute Plan to address problem: IVF replacement. (6) DVT prophylaxis Current Visit: Yes Status: Acute
[2017-07-19] MEDS: PEPCID PO SCH (22:30)
[2017-07-19] MEDS: TYLENOL PO PRN (22:30)
[2017-07-20 05:47] LABS: Hemoglobin 10.2 gm/dl (11.8-15.2); Mean Corpuscular HGB Conc 35 % (32-34); Mean Corpuscular Hemoglobin 32 pg (28-32); Mean Corpuscular Volume 92 fl (84-94); Platelet Count 173 K/mm3 (140-440); Red Blood Count 3.15 M/mm3 (3.65-5.03); Red Cell Distribution Width 17.7 % (13.2-15.2); White Blood Count 9.6 K/mm3 (4.5-11.0)
[2017-07-20 06:03] LABS: INR 6.05 (0.87-1.13)
[2017-07-20 06:04] LABS: Anion Gap 18 mmol/L; Blood Urea Nitrogen 78 mg/dL (9-20); Calcium 8.2 mg/dL (8.4-10.2); Carbon Dioxide 21 mmol/L (22-30); Chloride 98.1 mmol/L (98-107); Glucose 80 mg/dL (75-100); Potassium 4.5 mmol/L (3.6-5.0); Sodium 133 mmol/L (137-145)
--- NOTE | 2017-07-20 10:10 | Ultrasound Report ---
ULTRASOUND ABDOMEN COMPLETE: Technique: Transabdominal ultrasound with color Doppler interrogation. History: Jaundice, ascites, abdominal distention. Findings: No relevant comparison. The liver is mildly enlarged with dilated hepatic veins and IVC consistent with congestive hepatomegaly. No focal liver mass or surface nodularity is appreciated. The spleen is unremarkable and measures 9.7 cm in length. The gallbladder dimensions are within normal limits without intraluminal stone, wall thickening, or pericholecystic fluid. The CBD measures 4.5 mm. The visualized portions of the pancreas including the head and proximal body are within normal limits. The pancreatic tail is obscured. Both kidneys are echogenic but normal size. 1 cm simple left renal cyst is noted near the superior pole. No evidence for nephrolithiasis, mass or hydronephrosis. The aorta is within normal limits. No aneurysmal dilatation is noted. Small to medium ascites is noted in all 4 quadrants. IMPRESSION: Mild hepatomegaly which is mildly secondary to congestion. No evidence for cholelithiasis. Echogenic kidneys consistent with medical renal disease. No obstructive uropathy. Ascites.
[2017-07-20] MEDS: PEPCID PO SCH ×2 (10:55→22:26)
--- NOTE | 2017-07-20 10:57 | Progress Note ---
Assessment and Plan Assessment: Supratherapeutic INR - INR 6.7 at admission. Atrial fibrillation with CVR AICD in situ H/o HTN - with borderline hypotension since admission. Anemia Hyperbilirubinemia / jaundice Hypocalcemia Hyponatremia Hypoalbuminemia Chronic venous insufficiency Plan: Medical records obtained from [facility] AICD was placed in 2014 for CMP (EF 10-15%). Will interrogate device as it appears that pt has not had any f/u since device implantation. Obtain echo. INR 6.05 this AM. Recommend continuing to hold coumadin at this time. Goal INR is 2-3. Would not recommend administration of reversal agents and/or FFP as there are currently no overt signs of bleeding. Await GI consultation. Abdominal U/S showed mild hepatomegaly secondary to congestion, no evidence for cholelithiasis, ascites. The patient has been seen in conjunction with Dr. Cooley who agrees with the assessment and plan of care. Subjective Date of service: 07/20/17 Principal diagnosis: supratherapeutic INR; CMP Interval history: Pt resting comfortably in bed, denies any current complaints. VSS. Objective Last Vital Signs Temp 98.0 F 07/20/17 08:49 Pulse 61 07/20/17 08:49 Resp 28 H 07/20/17 08:49 BP 88/52 07/20/17 08:49 Pulse Ox 95 07/20/17 08:49 - Physical Examination HEENT: Positive: PERRL, Normocephaly, Mucus Membranes Moist, Other (icteric sclera) Neck: Positive: neck supple, trachea midline Cardiac: Positive: Reg Rate and Rhythm, S1/S2 Lungs: Positive: clear to auscultation Neuro: Positive: Grossly Intact, Cranial Nerve 2-12 Intact Abdomen: Positive: Soft, Active Bowel Sounds. Negative: Tender Skin: Positive: Clear, Other (BLE stasis dermatitis; jaundiced). Negative: Rash Musculoskeletal: No Pain, Normal Range of Motion Extremities: Present: +2 Edema (BLE pitting) - Labs and Meds Coagulation 07/20/17 Range/Units 04:55 PT 54.7 H (12.2-14.9) Sec. INR 6.05 H* (0.87-1.13) Lipids 07/19/17 Range/Units 14:38 Triglycerides 80 (2-149) mg/dL Cholesterol 78 (50-199) mg/dL HDL Cholesterol 6 L (40-59) mg/dL Cholesterol/HDL Ratio 13.00 % CBC 07/20/17 Range/Units 04:55 WBC 9.6 (4.5-11.0) K/mm3 RBC 3.15 L (3.65-5.03) M/mm3 Hgb 10.2 L (11.8-15.2) gm/dl Hct 29.0 L (35.5-45.6) % Plt Count 173 (140-440) K/mm3 Comprehensive Metabolic Panel 07/20/17 Range/Units 04:55 Sodium 133 L (137-145) mmol/L Potassium 4.5 (3.6-5.0) mmol/L Chloride 98.1 (98-107) mmol/L Carbon Dioxide 21 L (22-30) mmol/L BUN 78 H (9-20) mg/dL Creatinine 1.2 (0.8-1.5) mg/dL Glucose 80 (75-100) mg/dL Calcium 8.2 L (8.4-10.2) mg/dL - Imaging and Cardiology EKG: image reviewed Echo: pending
--- NOTE | 2017-07-20 11:03 | Gastroenterology Consultation ---
<BRIANNA,TANJAANALISA Hector - Last Filed: 07/20/17 11:23> History of Present Illness - Reason for Consult Consult date: 07/20/17 hyperbilirubinemia Requesting physician: MARLENI SCHAEFFER - History of Present Illness Patient is a 56 y/o male who was brought from the nursing home with c/o him not feeling well. He was admitted for coumadin toxicity with INR noted to be 9.3 on admission. He was also noted to be jaundice with T. landy 10.3. Abd u/s revealed mild hepatomegaly but no evidence of cholelithiasis. Pt resting in bed this am, no acute distress. Noted to be somnolent. He denies fever, wt, loss, abd pain, N /V, pruritus, hematemesis, melena, diarrhea, constipation, or hematochezia. No hx or Fhx of liver disease. No ETOH abuse. PMH significant for CHF with AICD placement, A-fib anticoagulated on Coumadin, and obesity. 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 denies: smoking, alcohol abuse, prescription drug abuse Family history: hypertension Medications and Allergies Allergies Allergy/AdvReac Type Severity Reaction Status Date / Time No Known Allergies Allergy Unverified 07/19/17 11:57 Home Medications Medication Instructions Recorded Confirmed Last Taken Type No Known Home Medications [No 07/20/17 07/20/17 Unknown History Reported Home Medications] Active Meds: Active Medications Acetaminophen (Tylenol) 650 mg PO Q4H PRN PRN Reason: Pain MILD(1-3)/Fever >100.5/PAN Last Admin: 07/19/17 22:30 Dose: 650 mg Albuterol (Proventil) 2.5 mg IH Q4HRT PRN PRN Reason: Shortness Of Breath Famotidine (Pepcid) 10 mg PO BID DEBBI Last Admin: 07/20/17 10:55 Dose: 10 mg Influenza Virus Vaccine Quadrival (Fluarix Quad [id number](36 Mos+)) 0.5 ml IM .ONCE ONE Stop: 07/21/17 12:01 Pneumococcal Polyvalent Vaccine (Pneumovax 23) 0.5 ml IM .ONCE ONE Stop: 07/21/17 12:01 Review of Systems - Review of Systems All systems: negative Constitutional: other (generalized body pain) Integumentary: jaundice Exam - Constitutional Vital Signs: Temp Pulse Resp BP Pulse Ox 98.0 F 61 28 H 88/52 95 07/20/17 08:49 07/20/17 08:49 07/20/17 08:49 07/20/17 08:49 07/20/17 08:49 General appearance: no acute distress, obese, other (somnolent) - EENT Eyes: PERRL, EOM intact, scleral icterus ENT: hearing intact - Neck Neck: supple, normal ROM - Respiratory Respiratory: bilateral: diminished - Cardiovascular Rhythm: regular Heart Sounds: Present: S1 & S2 Extremity abnormal: other (BLE stasis dermatitis) - Gastrointestinal General gastrointestinal: Present: soft, non-tender, non-distended, normal bowel sounds - Integumentary Integumentary: Present: warm, dry, jaundice - Neurologic Neurological: alert and oriented x3 - Labs CBC & Chem 7: 07/20/17 04:55 07/20/17 04:55 Lab Results: Laboratory Results - last 24 hr 07/19/17 07/20/17 07/20/17 14:38 04:55 04:55 WBC 9.6 RBC 3.15 L Hgb 10.2 L Hct 29.0 L MCV 92 MCH 32 MCHC 35 H RDW 17.7 H Plt Count 173 PT 54.7 H INR 6.05 H* Sodium Potassium Chloride Carbon Dioxide Anion Gap BUN Creatinine Estimated GFR BUN/Creatinine Ratio Glucose Calcium Triglycerides 80 Cholesterol 78 LDL Cholesterol Direct 56 HDL Cholesterol 6 L Cholesterol/HDL Ratio 13.00 07/20/17 04:55 WBC RBC Hgb Hct MCV MCH MCHC RDW Plt Count PT INR Sodium 133 L Potassium 4.5 Chloride 98.1 Carbon Dioxide 21 L Anion Gap 18 BUN 78 H Creatinine 1.2 Estimated GFR > 60 BUN/Creatinine Ratio 65.00 Glucose 80 Calcium 8.2 L Triglycerides Cholesterol LDL Cholesterol Direct HDL Cholesterol Cholesterol/HDL Ratio Assessment and Plan 1.hyperbilirubinemia 2.jaundice 3.coumadin toxicity 4.CHF 5.A-fib -HGB- 10.2- stable -INR today- 6.05 -plt- 173-WNL -AST/ALT- 29/14-WNL -Alk phos 143-elevated -T. landy 10.3-elevated -abd u/s revealed mild hepatomegaly but no evidence of cholelithiasis -etiology unclear at this time- will fractionate bilirubin and get a hepatitis panel -will consider further testing based on lab results -will follow <LISA HEWITT - Last Filed: 07/20/17 17:25> Medications and Allergies Active Meds: Active Medications Acetaminophen (Tylenol) 650 mg PO Q4H PRN PRN Reason: Pain MILD(1-3)/Fever >100.5/PAN Last Admin: 07/19/17 22:30 Dose: 650 mg Albuterol (Proventil) 2.5 mg IH Q4HRT PRN PRN Reason: Shortness Of Breath Famotidine (Pepcid) 10 mg PO BID DEBBI Last Admin: 07/20/17 10:55 Dose: 10 mg Influenza Virus Vaccine Quadrival (Fluarix Quad [id number](36 Mos+)) 0.5 ml IM .ONCE ONE Stop: 07/21/17 12:01 Pneumococcal Polyvalent Vaccine (Pneumovax 23) 0.5 ml IM .ONCE ONE Stop: 07/21/17 12:01 Exam - Constitutional Vital Signs: Temp Pulse Resp BP Pulse Ox 98.0 F 84 20 91/54 97 07/20/17 16:59 07/20/17 16:59 07/20/17 16:59 07/20/17 16:59 07/20/17 16:59 - Labs CBC & Chem 7: 07/20/17 04:55 07/20/17 04:55 Lab Results: Laboratory Results - last 24 hr 07/20/17 07/20/17 07/20/17 04:55 04:55 04:55 WBC 9.6 RBC 3.15 L Hgb 10.2 L Hct 29.0 L MCV 92 MCH 32 MCHC 35 H RDW 17.7 H Plt Count 173 PT 54.7 H INR 6.05 H* Sodium 133 L Potassium 4.5 Chloride 98.1 Carbon Dioxide 21 L Anion Gap 18 BUN 78 H Creatinine 1.2 Estimated GFR > 60 BUN/Creatinine Ratio 65.00 Glucose 80 Calcium 8.2 L Assessment and Plan Patient seen and examined. Agree with note by Tanja Mcgarry. Patient with AMS/ unable to provide much history (unknown baseline). No reported history of alcohol abuse or known liver disease. RUQ US without signs of biliary dilatation so obstructive process seems less likely. There are signs of congestive hepatopathy and TTE with EF of 20% (may be partially contributing to elevated levels). Will fractionate bilirubin (r/o hemolysis). Other etiologies that may cause similar pattern of elevation include sepsis (defer to primary for work-up), medication (no obvious source on medication list however) , alc hep (pt has been incarcerated for at least a month, so less likely, although unclear if there is a h/o alcohol abuse prior to this). Trend liver enzymes daily, consider MRCP to ensure no biliary obstruction depending on clinical course/follow-up labs.
--- NOTE | 2017-07-20 16:20 | Progress Note ---
Assessment and Plan Assessment and plan: Anusha horan on anticoagulation Coumadin toxicity Chronic combined heart failure Hyperbilirubinemia with hepatomegaly Venous stasis ulcer - Cardiology and GI consult appreciated - Echo showed EF of 20-25%, with diastolic dysfunction - We will have ICD interrogation - We will continue Lasix because of his borderline blood pressure - Ultrasound showed hepatomegaly - Patient doesn't need FFP or vitamin K, patient didn't have active bleeding, hemoglobin and hematocrit is stable DVT prophylaxis - Mechanical Disposition - Continue inpatient care History Interval history: Patient was seen and evaluated this morning, patient has dementia and difficulty of finding words, not in cardiopulmonary distress. Hospitalist Physical - Physical exam Narrative exam: Not in cardiopulmonary distress. The patient is obese. Vital signs as documented. Head exam is unremarkable. + scleral icterus . Neck is without jugular venous distension, thyromegaly, or carotid bruits. Lungs are clear to auscultation. Cardiac exam reveals irregularly irregular rhythm. Abdominal exam reveals normal bowel sounds, no masses. Extremities mild bilateral leg swelling with venous stasis. COYOTE HUNTER: Alert and oriented 3. No focal weakness. - Constitutional Vitals: Temp Pulse Resp BP Pulse Ox 98.1 F 65 22 85/58 96 07/20/17 12:31 07/20/17 12:31 07/20/17 12:31 07/20/17 12:31 07/20/17 12:31 General appearance: Present: mild distress Results - Labs CBC & Chem 7: 07/20/17 04:55 07/20/17 04:55 Labs: Laboratory Last Values WBC 9.6 K/mm3 (4.5-11.0) 07/20/17 04:55 RBC 3.15 M/mm3 (3.65-5.03) L 07/20/17 04:55 Hgb 10.2 gm/dl (11.8-15.2) L 07/20/17 04:55 Hct 29.0 % (35.5-45.6) L 07/20/17 04:55 MCV 92 fl (84-94) 07/20/17 04:55 MCH 32 pg (28-32) 07/20/17 04:55 MCHC 35 % (32-34) H 07/20/17 04:55 RDW 17.7 % (13.2-15.2) H 07/20/17 04:55 Plt Count 173 K/mm3 (140-440) 07/20/17 04:55 Add Manual Diff Complete 07/19/17 12:14 Total Counted 100 07/19/17 12:14 Seg Neutrophils % Typists Supervisor 07/19/17 12:14 Seg Neuts % (Manual) 97.0 % (40.0-70.0) H 07/19/17 12:14 Band Neutrophils % 0 % 07/19/17 12:14 Lymphocytes % (Manual) 1.0 % (13.4-35.0) L 07/19/17 12:14 Reactive Lymphs % (Man) 0 % 07/19/17 12:14 Monocytes % (Manual) 2.0 % (0.0-7.3) 07/19/17 12:14 Eosinophils % (Manual) 0 % (0.0-4.3) 07/19/17 12:14 Basophils % (Manual) 0 % (0.0-1.8) 07/19/17 12:14 Metamyelocytes % 0 % 07/19/17 12:14 Myelocytes % 0 % 07/19/17 12:14 Promyelocytes % 0 % 07/19/17 12:14 Blast Cells % 0 % 07/19/17 12:14 Nucleated RBC % Not Reportable 07/19/17 12:14 Seg Neutrophils # Man 9.6 K/mm3 (1.8-7.7) H 07/19/17 12:14 Band Neutrophils # 0.0 K/mm3 07/19/17 12:14 Lymphocytes # (Manual) 0.1 K/mm3 (1.2-5.4) L 07/19/17 12:14 Abs React Lymphs (Man) 0.0 K/mm3 07/19/17 12:14 Monocytes # (Manual) 0.2 K/mm3 (0.0-0.8) 07/19/17 12:14 Eosinophils # (Manual) 0.0 K/mm3 (0.0-0.4) 07/19/17 12:14 Basophils # (Manual) 0.0 K/mm3 (0.0-0.1) 07/19/17 12:14 Metamyelocytes # 0.0 K/mm3 07/19/17 12:14 Myelocytes # 0.0 K/mm3 07/19/17 12:14 Promyelocytes # 0.0 K/mm3 07/19/17 12:14 Blast Cells # 0.0 K/mm3 07/19/17 12:14 Pathologist Review 07/19/17 12:14 WBC Morphology Not Reportable 07/19/17 12:14 Hypersegmented Neuts Not Reportable 07/19/17 12:14 Hyposegmented Neuts Not Reportable 07/19/17 12:14 Hypogranular Neuts Not Reportable 07/19/17 12:14 Smudge Cells Not Reportable 07/19/17 12:14 Toxic Granulation Not Reportable 07/19/17 12:14 Toxic Vacuolation Not Reportable 07/19/17 12:14 Dohle Bodies Not Reportable 07/19/17 12:14 Pelger-Huet Anomaly Not Reportable 07/19/17 12:14 Rosalio Rods Not Reportable 07/19/17 12:14 Platelet Estimate Appears normal 07/19/17 12:14 Clumped Platelets Not Reportable 07/19/17 12:14 Plt Clumps, EDTA Not Reportable 07/19/17 12:14 Large Platelets Few 07/19/17 12:14 Giant Platelets Not Reportable 07/19/17 12:14 Platelet Satelliting Not Reportable 07/19/17 12:14 Plt Morphology Comment Not Reportable 07/19/17 12:14 RBC Morphology Not Reportable 07/19/17 12:14 Dimorphic RBCs Not Reportable 07/19/17 12:14 Polychromasia Not Reportable 07/19/17 12:14 Hypochromasia Not Reportable 07/19/17 12:14 Poikilocytosis Not Reportable 07/19/17 12:14 Anisocytosis Few 07/19/17 12:14 Microcytosis Not Reportable 07/19/17 12:14 Macrocytosis 1+ 07/19/17 12:14 Spherocytes Rare 07/19/17 12:14 Pappenheimer Bodies Not Reportable 07/19/17 12:14 Sickle Cells Not Reportable 07/19/17 12:14 Target Cells 2+ 07/19/17 12:14 Tear Drop Cells Not Reportable 07/19/17 12:14 Ovalocytes Not Reportable 07/19/17 12:14 Helmet Cells Not Reportable 07/19/17 12:14 [place] Bodies Not Reportable 07/19/17 12:14 [place] Rings Not Reportable 07/19/17 12:14 [place] Cells Rare 07/19/17 12:14 Bite Cells Not Reportable 07/19/17 12:14 Crenated Cell Not Reportable 07/19/17 12:14 Elliptocytes Not Reportable 07/19/17 12:14 Acanthocytes (Spur) Not Reportable 07/19/17 12:14 Rouleaux Not Reportable 07/19/17 12:14 Hemoglobin C Crystals Not Reportable 07/19/17 12:14 Schistocytes Not Reportable 07/19/17 12:14 Malaria parasites Not Reportable 07/19/17 12:14 Osmin Bodies Not Reportable 07/19/17 12:14 Hem Pathologist Commnt Sent to pathology 07/19/17 12:14 PT 54.7 Sec. (12.2-14.9) H 07/20/17 04:55 INR 6.05 (0.87-1.13) H* 07/20/17 04:55 APTT 80.4 Sec. (24.2-36.6) H* 07/19/17 12:14 Sodium 133 mmol/L (137-145) L 07/20/17 04:55 Potassium 4.5 mmol/L (3.6-5.0) 07/20/17 04:55 Chloride 98.1 mmol/L (98-107) 07/20/17 04:55 Carbon Dioxide 21 mmol/L (22-30) L 07/20/17 04:55 Anion Gap 18 mmol/L 07/20/17 04:55 BUN 78 mg/dL (9-20) H 07/20/17 04:55 Creatinine 1.2 mg/dL (0.8-1.5) 07/20/17 04:55 Estimated GFR > 60 ml/min 07/20/17 04:55 BUN/Creatinine Ratio 65.00 % 07/20/17 04:55 Glucose 80 mg/dL (75-100) 07/20/17 04:55 Calcium 8.2 mg/dL (8.4-10.2) L 07/20/17 04:55 Total Bilirubin 10.30 mg/dL (0.1-1.2) H 07/19/17 12:14 AST 29 units/L (5-40) 07/19/17 12:14 ALT 14 units/L (7-56) 07/19/17 12:14 Alkaline Phosphatase 143 units/L (35-129) H 07/19/17 12:14 Total Creatine Kinase 64 units/L (55-170) 07/19/17 12:14 CK-MB (CK-2) 2.3 ng/mL (0.0-4.0) 07/19/17 12:14 CK-MB (CK-2) Rel Index 3.5 (0-4) 07/19/17 12:14 Troponin T 0.014 ng/mL (0.00-0.029) 07/19/17 12:14 NT-Pro-B Natriuret Pep 7153 pg/mL (0-900) H 07/19/17 14:24 Total Protein 7.1 g/dL (6.3-8.2) 07/19/17 12:14 Albumin 2.1 g/dL (3.9-5) L 07/19/17 12:14 Albumin/Globulin Ratio 0.4 % 07/19/17 12:14 Triglycerides 80 mg/dL (2-149) 07/19/17 14:38 Cholesterol 78 mg/dL (50-199) 07/19/17 14:38 LDL Cholesterol Direct 56 mg/dL (50-130) 07/19/17 14:38 HDL Cholesterol 6 mg/dL (40-59) L 07/19/17 14:38 Cholesterol/HDL Ratio 13.00 % 07/19/17 14:38 Blood Type O NEGATIVE 07/19/17 12:14 Antibody Screen Negative 07/19/17 12:14
[2017-07-21 06:25] LABS: INR 4.4 (0.87-1.13)
[2017-07-21 06:32] LABS: Hematocrit 27.7 % (35.5-45.6); Hemoglobin 9.6 gm/dl (11.8-15.2); Mean Corpuscular HGB Conc 35 % (32-34); Mean Corpuscular Hemoglobin 32 pg (28-32); Mean Corpuscular Volume 91 fl (84-94); Platelet Count 164 K/mm3 (140-440); Red Blood Count 3.03 M/mm3 (3.65-5.03); Red Cell Distribution Width 17.6 % (13.2-15.2); White Blood Count 11.8 K/mm3 (4.5-11.0)
[2017-07-21 06:33] LABS: Albumin 2.2 g/dL (3.9-5); Albumin/Globulin Ratio 0.4 %; BUN/Creatinine Ratio 46.31; Bilirubin,Direct 7.4 mg/dL (0-0.2); Bilirubin,Indirect 3.5 mg/dL; Bilirubin,Total 10.9 mg/dL (0.1-1.2); Calcium 7.9 mg/dL (8.4-10.2); Chloride 98.6 mmol/L (98-107); Total Protein 7.3 g/dL (6.3-8.2)
[2017-07-21] MEDS: PEPCID PO SCH ×2 (09:20→21:36)
[2017-07-21 10:03] LABS: Basophils % (Manual) 0 % (0.0-1.8); Blastocytes % (Manual) 0 %; Eosinophils % (Manual) 0 % (0.0-4.3)
[2017-07-21 10:04] LABS: Target Cells 3+
[2017-07-21 10:05] LABS: Diff Status Complete; Hypochromasia 1+
[2017-07-21 10:07] LABS: Spherocytes Few
[2017-07-21 11:18] LABS: Reticulocyte % 1.59 % (0.78-2.58)
[2017-07-21] MEDS ORDERED: PNEUMOVAX 23 IM ONE (12:00)
[2017-07-21] MEDS ORDERED: Fluarix Quad 2017-2018(36 MOS+) IM ONE (12:00)
--- NOTE | 2017-07-21 12:53 | Progress Note ---
Assessment and Plan Assessment: Supratherapeutic INR - INR 6.7 at admission-->currently 4.4 Atrial fibrillation with CVR Cardiomyopathy EF 20% AICD in situ H/o HTN - with borderline hypotension since admission. Anemia Hyperbilirubinemia / jaundice Hypocalcemia Hyponatremia Hypoalbuminemia Chronic venous insufficiency Plan: INR trending down, goal INR is 2-3. Would not recommend administration of reversal agents and/or FFP as there are currently no overt signs of bleeding. Obtain head CT given pt.' s mental status, discussed with Dr. Abarca. GI evaluation in progress. The patient has been seen in conjunction with Dr. Cooley who agrees with the assessment and plan of care. Subjective Date of service: 07/21/17 Principal diagnosis: supratherapeutic INR; CMP Interval history: Pt. resting in bed. He "feels weak." Device interrogation reveals one ICD discharge last week for probable VT. Objective Last Vital Signs Temp 98.6 F 07/21/17 09:15 Pulse 67 07/21/17 10:00 Resp 20 07/21/17 10:00 BP 92/56 07/21/17 09:15 Pulse Ox 100 07/21/17 10:00 - Physical Examination General: No Apparent Distress HEENT: Positive: PERRL, Normocephaly, Mucus Membranes Moist, Other (icteric sclera) Neck: Positive: neck supple, trachea midline Cardiac: Positive: irregularly irregular, S1/S2 Lungs: Positive: Decreased Breath Sounds Neuro: Positive: Grossly Intact, Cranial Nerve 2-12 Intact Abdomen: Positive: Soft, Active Bowel Sounds. Negative: Tender Skin: Positive: Clear, Other (BLE stasis dermatitis; jaundiced). Negative: Rash Musculoskeletal: No Pain, Normal Range of Motion Extremities: Present: +3 Edema (BLEs, chronic skin changes) - Labs and Meds Cardiac Enzymes 07/21/17 07/21/17 Range/Units 05:50 10:23 AST 23 (5-40) units/L Lactate Dehydrogenase 164 (91-180) units/L Coagulation 07/21/17 Range/Units 05:50 PT 44.4 H (12.2-14.9) Sec. INR 4.40 H (0.87-1.13) CBC 07/21/17 Range/Units 05:50 WBC 11.8 H (4.5-11.0) K/mm3 RBC 3.03 L (3.65-5.03) M/mm3 Hgb 9.6 L (11.8-15.2) gm/dl Hct 27.7 L (35.5-45.6) % Plt Count 164 (140-440) K/mm3 Lymph # Court Recorder Cherry # Court Recorder Eos # Court Recorder Baso # Court Recorder Comprehensive Metabolic Panel 07/21/17 Range/Units 05:50 Sodium 133 L (137-145) mmol/L Potassium 5.0 (3.6-5.0) mmol/L Chloride 98.6 (98-107) mmol/L Carbon Dioxide 20 L (22-30) mmol/L BUN 88 H (9-20) mg/dL Creatinine 1.9 H D (0.8-1.5) mg/dL Glucose 76 (75-100) mg/dL Calcium 7.9 L (8.4-10.2) mg/dL Direct Bilirubin 7.4 H (0-0.2) mg/dL Indirect Bilirubin 3.5 mg/dL AST 23 (5-40) units/L ALT 13 (7-56) units/L Alkaline Phosphatase 144 H (35-129) units/L Total Protein 7.3 (6.3-8.2) g/dL Albumin 2.2 L (3.9-5) g/dL - Imaging and Cardiology EKG: image reviewed Echo: report reviewed (06/2017: EF 20%, severe MR, severe TR, moderate pericardial effusion ) - Telemetry EKG Rhythm: Atrial Fibrillation
--- NOTE | 2017-07-21 14:23 | Cat Scan Report ---
CT HEAD WITHOUT CONTRAST: HISTORY: Difficulty speaking, neurological symptoms. Serial contiguous axial images were obtained through the cranium. Intravenous contrast material was not administered. This exam is limited by motion artifact. The ventricles are normal in size and appearance. There is no mass effect or midline shift. No areas of abnormally increased or decreased attenuation are seen. No mass lesion is seen. The mastoid air cells and visualized portions of the sinuses are normal. IMPRESSION: Slightly limited exam by motion. No acute intracranial process is detected.
--- NOTE | 2017-07-21 16:23 | Gastroenterology Progress Note ---
Assessment and Plan elevated bilirubin - unclear etiology, US without signs of biliary dilatation. primarily direct elevation of bilirubin. Pt with pacemaker so unable to obtain MRCP to further evaluate for obstructive process (although rest of liver enzymes and US findings not consistent with obstruction). Likely multi- factorial with congestive hepatopathy partially contributing. viral hepatitis serologies neg, no obvious signs of infection, will obtain autoimmune markers/ AMA. Will check ammonia as well given AMS. Consider CT of abd once creatinine improves. Subjective Date of service: 07/21/17 Principal diagnosis: supratherapeutic INR; CMP Interval history: pt seen and examined. awake, but provides minimal history (able to give yes/no answers which is improved compared to yesterday). denies past h/o alcohol abuse. Objective - Exam Narrative Exam: Gen: NAD, awake/provides minimal history (unknown baseline) CV: RRR Lungs: CTAB Abd: soft, nt, +bs Eyes: + icterus - Constitutional Vitals: Temp Pulse Resp BP Pulse Ox 98.6 F 72 20 92/56 100 07/21/17 09:15 07/21/17 12:00 07/21/17 10:00 07/21/17 09:15 07/21/17 10:00 - Labs CBC & Chem 7: 07/21/17 05:50 07/21/17 05:50 Labs: Laboratory Results - last 24 hr 07/21/17 07/21/17 07/21/17 05:50 05:50 05:50 WBC 11.8 H RBC 3.03 L Hgb 9.6 L Hct 27.7 L MCV 91 MCH 32 MCHC 35 H RDW 17.6 H Plt Count 164 Lymph % (Auto) Pellet Preparation Operator Miner % (Auto) Pellet Preparation Operator Eos % (Auto) Pellet Preparation Operator Baso % (Auto) Pellet Preparation Operator Lymph # Pellet Preparation Operator Miner # Pellet Preparation Operator Eos # Pellet Preparation Operator Baso # Pellet Preparation Operator Add Manual Diff Complete Total Counted 100 Seg Neutrophils % Pellet Preparation Operator Seg Neuts % (Manual) 83.0 H Band Neutrophils % 12.0 Lymphocytes % (Manual) 2.0 L Reactive Lymphs % (Man) 0 Monocytes % (Manual) 3.0 Eosinophils % (Manual) 0 Basophils % (Manual) 0 Metamyelocytes % 0 Myelocytes % 0 Promyelocytes % 0 Blast Cells % 0 Nucleated RBC % Not Reportable Seg Neutrophils # Pellet Preparation Operator Seg Neutrophils # Man 9.8 H Band Neutrophils # 1.4 Lymphocytes # (Manual) 0.2 L Abs React Lymphs (Man) 0.0 Monocytes # (Manual) 0.4 Eosinophils # (Manual) 0.0 Basophils # (Manual) 0.0 Metamyelocytes # 0.0 Myelocytes # 0.0 Promyelocytes # 0.0 Blast Cells # 0.0 WBC Morphology Not Reportable Hypersegmented Neuts Not Reportable Hyposegmented Neuts Not Reportable Hypogranular Neuts Not Reportable Smudge Cells Not Reportable Toxic Granulation Not Reportable Toxic Vacuolation Not Reportable Dohle Bodies Not Reportable Pelger-Huet Anomaly Not Reportable Rosalio Rods Not Reportable Platelet Estimate Not Reportable Clumped Platelets Not Reportable Plt Clumps, EDTA Not Reportable Large Platelets Not Reportable Giant Platelets Not Reportable Platelet Satelliting Not Reportable Plt Morphology Comment Not Reportable RBC Morphology Not Reportable Dimorphic RBCs Not Reportable Polychromasia Not Reportable Hypochromasia 1+ Poikilocytosis Not Reportable Anisocytosis Not Reportable Microcytosis Not Reportable Macrocytosis Not Reportable Spherocytes Few Pappenheimer Bodies Not Reportable Sickle Cells Not Reportable Target Cells 3+ Tear Drop Cells Not Reportable Ovalocytes Not Reportable Helmet Cells Not Reportable [place] Bodies Not Reportable [place] Rings Not Reportable [place] Cells Not Reportable Bite Cells Not Reportable Crenated Cell Not Reportable Elliptocytes Not Reportable Acanthocytes (Spur) Not Reportable Rouleaux Not Reportable Hemoglobin C Crystals Not Reportable Schistocytes Not Reportable Malaria parasites Not Reportable Percent Retic Osmin Bodies Not Reportable Hem Pathologist Commnt No PT 44.4 H INR 4.40 H Sodium 133 L Potassium 5.0 Chloride 98.6 Carbon Dioxide 20 L Anion Gap 19 BUN 88 H Creatinine 1.9 H D Estimated GFR 45 BUN/Creatinine Ratio 46.31 Glucose 76 Calcium 7.9 L Total Bilirubin 10.90 H Direct Bilirubin 7.4 H Indirect Bilirubin 3.5 AST 23 ALT 13 Alkaline Phosphatase 144 H Lactate Dehydrogenase Total Protein 7.3 Albumin 2.2 L Albumin/Globulin Ratio 0.4 Hepatitis A IgM Ab Hep Bs Antigen Hep B Core IgM Ab Hepatitis C Antibody 07/21/17 07/21/17 07/21/17 05:50 10:23 10:23 WBC RBC Hgb Hct MCV MCH MCHC RDW Plt Count Lymph % (Auto) [place] % (Auto) Eos % (Auto) Baso % (Auto) Lymph # Miner # Eos # Baso # Add Manual Diff Total Counted Seg Neutrophils % Seg Neuts % (Manual) Band Neutrophils % Lymphocytes % (Manual) Reactive Lymphs % (Man) Monocytes % (Manual) Eosinophils % (Manual) Basophils % (Manual) Metamyelocytes % Myelocytes % Promyelocytes % Blast Cells % Nucleated RBC % Seg Neutrophils # Seg Neutrophils # Man Band Neutrophils # Lymphocytes # (Manual) Abs React Lymphs (Man) Monocytes # (Manual) Eosinophils # (Manual) Basophils # (Manual) Metamyelocytes # Myelocytes # Promyelocytes # Blast Cells # WBC Morphology Hypersegmented Neuts Hyposegmented Neuts Hypogranular Neuts Smudge Cells Toxic Granulation Toxic Vacuolation Dohle Bodies Pelger-Huet Anomaly Rosalio Rods Platelet Estimate Clumped Platelets Plt Clumps, EDTA Large Platelets Giant Platelets Platelet Satelliting Plt Morphology Comment RBC Morphology Dimorphic RBCs Polychromasia Hypochromasia Poikilocytosis Anisocytosis Microcytosis Macrocytosis Spherocytes Pappenheimer Bodies Sickle Cells Target Cells Tear Drop Cells Ovalocytes Helmet Cells [place] Bodies [place] Rings [place] Cells Bite Cells Crenated Cell Elliptocytes Acanthocytes (Spur) Rouleaux Hemoglobin C Crystals Schistocytes Malaria parasites Percent Retic 1.59 Osmin Bodies Hem Pathologist Commnt PT INR Sodium Potassium Chloride Carbon Dioxide Anion Gap BUN Creatinine Estimated GFR BUN/Creatinine Ratio Glucose Calcium Total Bilirubin Direct Bilirubin Indirect Bilirubin AST ALT Alkaline Phosphatase Lactate Dehydrogenase 164 Total Protein Albumin Albumin/Globulin Ratio Hepatitis A IgM Ab Non-reactive Hep Bs Antigen Non-reactive Hep B Core IgM Ab Non-reactive Hepatitis C Antibody Non-reactive - Imaging Ultrasound: report reviewed
--- NOTE | 2017-07-21 18:24 | Progress Note ---
Assessment and Plan Assessment and plan: hepatic encephalopathy - Ammonia level is high and patient started with lactulose - CT head negative for acute intracranial process A. fib on anticoagulation Coumadin toxicity Chronic combined heart failure Hyperbilirubinemia with hepatomegaly Venous stasis ulcer - Cardiology and GI consult appreciated - Echo showed EF of 20-25%, with diastolic dysfunction - We will have ICD interrogation - We will continue Lasix because of his borderline blood pressure - Ultrasound showed hepatomegaly - Patient doesn't need FFP or vitamin K, patient didn't have active bleeding, hemoglobin and hematocrit is stable DVT prophylaxis - Mechanical Disposition - Continue inpatient care History Interval history: Patient was seen and evaluated this morning, patient has confusion and stuttering speech, not in cardiopulmonary distress. Hospitalist Physical - Physical exam Narrative exam: Not in cardiopulmonary distress. The patient is obese. Vital signs as documented. Head exam is unremarkable. + scleral icterus . Neck is without jugular venous distension, thyromegaly, or carotid bruits. Lungs are clear to auscultation. Cardiac exam reveals irregularly irregular rhythm. Abdominal exam reveals normal bowel sounds, no masses. Extremities mild bilateral leg swelling with venous stasis. AMMONIA DISTILLER: Alert and oriented 3. No focal weakness. - Constitutional Vitals: Temp Pulse Resp BP Pulse Ox 98.6 F 72 20 92/56 95 07/21/17 09:15 07/21/17 12:00 07/21/17 10:00 07/21/17 09:15 07/21/17 10:00 General appearance: Present: mild distress Results - Labs CBC & Chem 7: 07/21/17 05:50 07/21/17 05:50 Labs: Laboratory Last Values WBC 11.8 K/mm3 (4.5-11.0) H 07/21/17 05:50 RBC 3.03 M/mm3 (3.65-5.03) L 07/21/17 05:50 Hgb 9.6 gm/dl (11.8-15.2) L 07/21/17 05:50 Hct 27.7 % (35.5-45.6) L 07/21/17 05:50 MCV 91 fl (84-94) 07/21/17 05:50 MCH 32 pg (28-32) 07/21/17 05:50 MCHC 35 % (32-34) H 07/21/17 05:50 RDW 17.6 % (13.2-15.2) H 07/21/17 05:50 Plt Count 164 K/mm3 (140-440) 07/21/17 05:50 Lymph % (Auto) Marketing/Sales Person 07/21/17 05:50 [place] % (Auto) Marketing/Sales Person 07/21/17 05:50 Eos % (Auto) Marketing/Sales Person 07/21/17 05:50 Baso % (Auto) Marketing/Sales Person 07/21/17 05:50 Lymph # Marketing/Sales Person 07/21/17 05:50 [place] # Marketing/Sales Person 07/21/17 05:50 Eos # Marketing/Sales Person 07/21/17 05:50 Baso # Marketing/Sales Person 07/21/17 05:50 Add Manual Diff Complete 07/21/17 05:50 Total Counted 100 07/21/17 05:50 Seg Neutrophils % Marketing/Sales Person 07/21/17 05:50 Seg Neuts % (Manual) 83.0 % (40.0-70.0) H 07/21/17 05:50 Band Neutrophils % 12.0 % 07/21/17 05:50 Lymphocytes % (Manual) 2.0 % (13.4-35.0) L 07/21/17 05:50 Reactive Lymphs % (Man) 0 % 07/21/17 05:50 Monocytes % (Manual) 3.0 % (0.0-7.3) 07/21/17 05:50 Eosinophils % (Manual) 0 % (0.0-4.3) 07/21/17 05:50 Basophils % (Manual) 0 % (0.0-1.8) 07/21/17 05:50 Metamyelocytes % 0 % 07/21/17 05:50 Myelocytes % 0 % 07/21/17 05:50 Promyelocytes % 0 % 07/21/17 05:50 Blast Cells % 0 % 07/21/17 05:50 Nucleated RBC % Not Reportable 07/21/17 05:50 Seg Neutrophils # Marketing/Sales Person 07/21/17 05:50 Seg Neutrophils # Man 9.8 K/mm3 (1.8-7.7) H 07/21/17 05:50 Band Neutrophils # 1.4 K/mm3 07/21/17 05:50 Lymphocytes # (Manual) 0.2 K/mm3 (1.2-5.4) L 07/21/17 05:50 Abs React Lymphs (Man) 0.0 K/mm3 07/21/17 05:50 Monocytes # (Manual) 0.4 K/mm3 (0.0-0.8) 07/21/17 05:50 Eosinophils # (Manual) 0.0 K/mm3 (0.0-0.4) 07/21/17 05:50 Basophils # (Manual) 0.0 K/mm3 (0.0-0.1) 07/21/17 05:50 Metamyelocytes # 0.0 K/mm3 07/21/17 05:50 Myelocytes # 0.0 K/mm3 07/21/17 05:50 Promyelocytes # 0.0 K/mm3 07/21/17 05:50 Blast Cells # 0.0 K/mm3 07/21/17 05:50 Pathologist Review 07/19/17 12:14 WBC Morphology Not Reportable 07/21/17 05:50 Hypersegmented Neuts Not Reportable 07/21/17 05:50 Hyposegmented Neuts Not Reportable 07/21/17 05:50 Hypogranular Neuts Not Reportable 07/21/17 05:50 Smudge Cells Not Reportable 07/21/17 05:50 Toxic Granulation Not Reportable 07/21/17 05:50 Toxic Vacuolation Not Reportable 07/21/17 05:50 Dohle Bodies Not Reportable 07/21/17 05:50 Pelger-Huet Anomaly Not Reportable 07/21/17 05:50 Rosalio Rods Not Reportable 07/21/17 05:50 Platelet Estimate Not Reportable 07/21/17 05:50 Clumped Platelets Not Reportable 07/21/17 05:50 Plt Clumps, EDTA Not Reportable 07/21/17 05:50 Large Platelets Not Reportable 07/21/17 05:50 Giant Platelets Not Reportable 07/21/17 05:50 Platelet Satelliting Not Reportable 07/21/17 05:50 Plt Morphology Comment Not Reportable 07/21/17 05:50 RBC Morphology Not Reportable 07/21/17 05:50 Dimorphic RBCs Not Reportable 07/21/17 05:50 Polychromasia Not Reportable 07/21/17 05:50 Hypochromasia 1+ 07/21/17 05:50 Poikilocytosis Not Reportable 07/21/17 05:50 Anisocytosis Not Reportable 07/21/17 05:50 Microcytosis Not Reportable 07/21/17 05:50 Macrocytosis Not Reportable 07/21/17 05:50 Spherocytes Few 07/21/17 05:50 Pappenheimer Bodies Not Reportable 07/21/17 05:50 Sickle Cells Not Reportable 07/21/17 05:50 Target Cells 3+ 07/21/17 05:50 Tear Drop Cells Not Reportable 07/21/17 05:50 Ovalocytes Not Reportable 07/21/17 05:50 Helmet Cells Not Reportable 07/21/17 05:50 [place] Bodies Not Reportable 07/21/17 05:50 [place] Rings Not Reportable 07/21/17 05:50 David Cells Not Reportable 07/21/17 05:50 Bite Cells Not Reportable 07/21/17 05:50 Crenated Cell Not Reportable 07/21/17 05:50 Elliptocytes Not Reportable 07/21/17 05:50 Acanthocytes (Spur) Not Reportable 07/21/17 05:50 Rouleaux Not Reportable 07/21/17 05:50 Hemoglobin C Crystals Not Reportable 07/21/17 05:50 Schistocytes Not Reportable 07/21/17 05:50 Malaria parasites Not Reportable 07/21/17 05:50 Percent Retic 1.59 % (0.78-2.58) 07/21/17 10:23 Osmin Bodies Not Reportable 07/21/17 05:50 Hem Pathologist Commnt No 07/21/17 05:50 PT 44.4 Sec. (12.2-14.9) H 07/21/17 05:50 INR 4.40 (0.87-1.13) H 07/21/17 05:50 APTT 80.4 Sec. (24.2-36.6) H* 07/19/17 12:14 Sodium 133 mmol/L (137-145) L 07/21/17 05:50 Potassium 5.0 mmol/L (3.6-5.0) 07/21/17 05:50 Chloride 98.6 mmol/L (98-107) 07/21/17 05:50 Carbon Dioxide 20 mmol/L (22-30) L 07/21/17 05:50 Anion Gap 19 mmol/L 07/21/17 05:50 BUN 88 mg/dL (9-20) H 07/21/17 05:50 Creatinine 1.9 mg/dL (0.8-1.5) H D 07/21/17 05:50 Estimated GFR 45 ml/min 07/21/17 05:50 BUN/Creatinine Ratio 46.31 % 07/21/17 05:50 Glucose 76 mg/dL (75-100) 07/21/17 05:50 Calcium 7.9 mg/dL (8.4-10.2) L 07/21/17 05:50 Total Bilirubin 10.90 mg/dL (0.1-1.2) H 07/21/17 05:50 Direct Bilirubin 7.4 mg/dL (0-0.2) H 07/21/17 05:50 Indirect Bilirubin 3.5 mg/dL 07/21/17 05:50 AST 23 units/L (5-40) 07/21/17 05:50 ALT 13 units/L (7-56) 07/21/17 05:50 Alkaline Phosphatase 144 units/L (35-129) H 07/21/17 05:50 Ammonia 104.0 umol/L (25-60) H 07/21/17 17:10 Lactate Dehydrogenase 164 units/L (91-180) 07/21/17 10:23 Total Creatine Kinase 64 units/L (55-170) 07/19/17 12:14 CK-MB (CK-2) 2.3 ng/mL (0.0-4.0) 07/19/17 12:14 CK-MB (CK-2) Rel Index 3.5 (0-4) 07/19/17 12:14 Troponin T 0.014 ng/mL (0.00-0.029) 07/19/17 12:14 NT-Pro-B Natriuret Pep 7153 pg/mL (0-900) H 07/19/17 14:24 Total Protein 7.3 g/dL (6.3-8.2) 07/21/17 05:50 Albumin 2.2 g/dL (3.9-5) L 07/21/17 05:50 Albumin/Globulin Ratio 0.4 % 07/21/17 05:50 Triglycerides 80 mg/dL (2-149) 07/19/17 14:38 Cholesterol 78 mg/dL (50-199) 07/19/17 14:38 LDL Cholesterol Direct 56 mg/dL (50-130) 07/19/17 14:38 HDL Cholesterol 6 mg/dL (40-59) L 07/19/17 14:38 Cholesterol/HDL Ratio 13.00 % 07/19/17 14:38 Hepatitis A IgM Ab Non-reactive (NonReactive) 07/21/17 05:50 Hep Bs Antigen Non-reactive (Negative) 07/21/17 05:50 Hep B Core IgM Ab Non-reactive (NonReactive) 07/21/17 05:50 Hepatitis C Antibody Non-reactive (NonReactive) 07/21/17 05:50 Blood Type O NEGATIVE 07/19/17 12:14 Antibody Screen Negative 07/19/17 12:14 worsening of renal function.
[2017-07-21] MEDS: CEPHULAC PO SCH (21:36)
[2017-07-21] MEDS: TYLENOL PO PRN (21:38)
[2017-07-22] MEDS: CEPHULAC PO SCH ×4 (07:06→19:37)
[2017-07-22 08:27] LABS: Hemoglobin 10.2 gm/dl (11.8-15.2); Mean Corpuscular HGB Conc 35 % (32-34); Mean Corpuscular Hemoglobin 32 pg (28-32); Mean Corpuscular Volume 91 fl (84-94); Platelet Count 130 K/mm3 (140-440); Red Blood Count 3.19 M/mm3 (3.65-5.03); Red Cell Distribution Width 18.5 % (13.2-15.2); White Blood Count 10.1 K/mm3 (4.5-11.0)
[2017-07-22 08:33] LABS: Albumin 2.2 g/dL (3.9-5); Albumin/Globulin Ratio 0.4 %; BUN/Creatinine Ratio 52.22; Bilirubin,Total 13.7 mg/dL (0.1-1.2); Calcium 8.1 mg/dL (8.4-10.2); Chloride 98.1 mmol/L (98-107); Potassium 5.3 mmol/L (3.6-5.0); Total Protein 8.1 g/dL (6.3-8.2)
[2017-07-22 08:36] LABS: INR 3.21 (0.87-1.13)
[2017-07-22 09:33] LABS: Basophils % (Manual) 0 % (0.0-1.8); Blastocytes % (Manual) 0 %; Eosinophils % (Manual) 0 % (0.0-4.3)
[2017-07-22 09:34] LABS: Diff Status Complete; Spherocytes Few; Target Cells 2+
--- NOTE | 2017-07-22 10:14 | Gastroenterology Progress Note ---
Assessment and Plan - Patient Problems (1) Coumadin toxicity Current Visit: Yes Status: Acute Qualifiers: Encounter type: E Injury intent: I (2) Elevated BUN Current Visit: Yes Status: Acute (3) Jaundice Current Visit: Yes Status: Acute Plan to address problem: Probably has significant underlying liver disease, although the etiology is not clear. No focal lesion on u/s. No dilated ducts to suggest obstruction. Elevated ammonia level and has encephalopathy. Currently on Lactulose and Rifaximin. Viral hepatitis B,C studies negative. Await studies for autoimmune liver disease. May need consideration of liver biopsy if coagulopathy resolves and etiology of liver disease unclear. Subjective Date of service: 07/22/17 Principal diagnosis: Jaundice, altered mental status Interval history: The patient is non verbal, but able to follow some commands Objective - Constitutional Vitals: Temp Pulse Resp BP Pulse Ox 98.5 F 77 22 107/72 98 07/22/17 08:00 07/22/17 08:00 07/22/17 08:00 07/22/17 08:00 07/22/17 08:00 General appearance: no acute distress - EENT ENT: hearing intact, clear oral mucosa, dentition normal - Respiratory Respiratory effort: normal Respiratory: bilateral: CTA - Cardiovascular Rhythm: regular - Extremities Extremities: pulses intact, normal color, Full ROM Extremity abnormal: edema - Gastrointestinal General gastrointestinal: Present: soft, non-tender, non-distended, normal bowel sounds - Neurologic Neurological: disoriented, strength equal bilaterally, generalized weakness, other (Able to follow simple commands although not speaking) - Labs CBC & Chem 7: 07/22/17 07:37 07/22/17 07:37 Labs: Laboratory Results - last 24 hr 07/21/17 07/21/17 07/21/17 10:23 10:23 17:10 WBC RBC Hgb Hct MCV MCH MCHC RDW Plt Count Add Manual Diff Total Counted Seg Neutrophils % Seg Neuts % (Manual) Band Neutrophils % Lymphocytes % (Manual) Reactive Lymphs % (Man) Monocytes % (Manual) Eosinophils % (Manual) Basophils % (Manual) Metamyelocytes % Myelocytes % Promyelocytes % Blast Cells % Nucleated RBC % Seg Neutrophils # Man Band Neutrophils # Lymphocytes # (Manual) Abs React Lymphs (Man) Monocytes # (Manual) Eosinophils # (Manual) Basophils # (Manual) Metamyelocytes # Myelocytes # Promyelocytes # Blast Cells # WBC Morphology Hypersegmented Neuts Hyposegmented Neuts Hypogranular Neuts Smudge Cells Toxic Granulation Toxic Vacuolation Dohle Bodies Pelger-Huet Anomaly Rosalio Rods Platelet Estimate Clumped Platelets Plt Clumps, EDTA Large Platelets Giant Platelets Platelet Satelliting Plt Morphology Comment RBC Morphology Dimorphic RBCs Polychromasia Hypochromasia Poikilocytosis Anisocytosis Microcytosis Macrocytosis Spherocytes Pappenheimer Bodies Sickle Cells Target Cells Tear Drop Cells Ovalocytes Helmet Cells [place] Bodies [place] Rings David Cells Bite Cells Crenated Cell Elliptocytes Acanthocytes (Spur) Rouleaux Hemoglobin C Crystals Schistocytes Malaria parasites Percent Retic 1.59 Osmin Bodies Hem Pathologist Commnt PT INR APTT Sodium Potassium Chloride Carbon Dioxide Anion Gap BUN Creatinine Estimated GFR BUN/Creatinine Ratio Glucose Calcium Total Bilirubin AST ALT Alkaline Phosphatase Ammonia 104.0 H Lactate Dehydrogenase 164 Total Protein Albumin Albumin/Globulin Ratio 07/22/17 07/22/17 07/22/17 07:37 07:37 07:37 WBC 10.1 RBC 3.19 L Hgb 10.2 L Hct 29.0 L MCV 91 MCH 32 MCHC 35 H RDW 18.5 H Plt Count 130 L Add Manual Diff Complete Total Counted 100 Seg Neutrophils % Driver/Sales Workers Seg Neuts % (Manual) 88.0 H Band Neutrophils % 9.0 Lymphocytes % (Manual) 1.0 L Reactive Lymphs % (Man) 0 Monocytes % (Manual) 2.0 Eosinophils % (Manual) 0 Basophils % (Manual) 0 Metamyelocytes % 0 Myelocytes % 0 Promyelocytes % 0 Blast Cells % 0 Nucleated RBC % Not Reportable Seg Neutrophils # Man 8.9 H Band Neutrophils # 0.9 Lymphocytes # (Manual) 0.1 L Abs React Lymphs (Man) 0.0 Monocytes # (Manual) 0.2 Eosinophils # (Manual) 0.0 Basophils # (Manual) 0.0 Metamyelocytes # 0.0 Myelocytes # 0.0 Promyelocytes # 0.0 Blast Cells # 0.0 WBC Morphology Not Reportable Hypersegmented Neuts Not Reportable Hyposegmented Neuts Not Reportable Hypogranular Neuts Not Reportable Smudge Cells Not Reportable Toxic Granulation Not Reportable Toxic Vacuolation Not Reportable Dohle Bodies Not Reportable Pelger-Huet Anomaly Not Reportable Rosalio Rods Not Reportable Platelet Estimate Not Reportable Clumped Platelets Not Reportable Plt Clumps, EDTA Not Reportable Large Platelets Not Reportable Giant Platelets Not Reportable Platelet Satelliting Not Reportable Plt Morphology Comment Not Reportable RBC Morphology Not Reportable Dimorphic RBCs Not Reportable Polychromasia Not Reportable Hypochromasia Not Reportable Poikilocytosis Not Reportable Anisocytosis Not Reportable Microcytosis Not Reportable Macrocytosis Not Reportable Spherocytes Few Pappenheimer Bodies Not Reportable Sickle Cells Not Reportable Target Cells 2+ Tear Drop Cells Not Reportable Ovalocytes Not Reportable Helmet Cells Not Reportable [place] Bodies Not Reportable [place] Rings Not Reportable [place] Cells Not Reportable Bite Cells Not Reportable Crenated Cell Not Reportable Elliptocytes Not Reportable Acanthocytes (Spur) Not Reportable Rouleaux Not Reportable Hemoglobin C Crystals Not Reportable Schistocytes Not Reportable Malaria parasites Not Reportable Percent Retic Osmin Bodies Not Reportable Hem Pathologist Commnt No PT 34.6 H INR 3.21 H APTT 62.0 H* Sodium 134 L Potassium 5.3 H Chloride 98.1 Carbon Dioxide 19 L Anion Gap 22 BUN 94 H Creatinine 1.8 H Estimated GFR 48 BUN/Creatinine Ratio 52.22 Glucose 77 Calcium 8.1 L Total Bilirubin 13.70 H AST 31 ALT 14 Alkaline Phosphatase 160 H Ammonia Lactate Dehydrogenase Total Protein 8.1 Albumin 2.2 L Albumin/Globulin Ratio 0.4
--- NOTE | 2017-07-22 10:45 | XRay Report ---
AP CHEST :07/22/17 CLINICAL: Chest congestion. COMPARISON:07/19/17 FINDINGS: Stable massive cardiomegaly with with an AICD lead in heart. Central vascular congestion and redistribution of pulmonary blood flow to the upper lobes. The pulmonary vessels are slightly more distinct than on the prior exam. The lungs are normally expanded and clear. No tubes or lines. IMPRESSION: Cardiomegaly and pulmonary venous hypertension. No pulmonary edema. Slight improvement compared to the previous exam.
[2017-07-22] MEDS ORDERED: LASIX IV ONE (11:00)
[2017-07-22] MEDS: PEPCID PO SCH ×2 (11:27→22:36)
--- NOTE | 2017-07-22 11:40 | Consultation ---
History of Present Illness - Reason for Consult Consult date: 07/22/17 acute renal failure, hyperkalemia - History of Present Illness The patient is a 56-year-old AAM with medical history significant for A. fib on coumadin, Cardiomyopathy, s/p AICD, CHF and Obesity presented to the ER with supratherapeutic INR. Patient is in police custody and is a prisoner at the retirement. They reported an INR of 9.3. Initial INR was 6.7 in the ER. Unable to obtain any history from patient as he is non-verbal. His creatinine increased to 1.9 from 0.9 on admission. His SBP is in 80's. 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 denies: smoking, alcohol abuse, prescription drug abuse Family history: hypertension Medications and Allergies Allergies Allergy/AdvReac Type Severity Reaction Status Date / Time No Known Allergies Allergy Unverified 07/19/17 11:57 Home Medications Medication Instructions Recorded Confirmed Last Taken Type No Known Home Medications [No 07/20/17 07/20/17 Unknown History Reported Home Medications] Active Meds: Active Medications Acetaminophen (Tylenol) 650 mg PO Q4H PRN PRN Reason: Pain MILD(1-3)/Fever >100.5/PAN Last Admin: 07/21/17 21:38 Dose: 650 mg Albuterol (Proventil) 2.5 mg IH Q4HRT PRN PRN Reason: Shortness Of Breath Famotidine (Pepcid) 10 mg PO BID FOR[facility]LY [facility], 1928–1983 Last Admin: 07/22/17 11:27 Dose: 10 mg Lactulose (Cephulac) 20 gm PO Q6HR [facility], 1928–1983 Last Admin: 07/22/17 11:26 Dose: 20 gm Rifaximin (Xifaxan) 550 mg PO BID FOR[facility], 1928[facility]1983 Review of Systems ROS unobtainable: due to mental status Exam - Vital Signs Vital signs: Vital Signs Temp Pulse Resp BP Pulse Ox 97.5 F L 52 L 20 83/55 100 07/19/17 11:58 07/19/17 11:58 07/19/17 11:58 07/19/17 11:58 07/19/17 11:58 - General Appearance General appearance: well-developed, well-nourished, obese, other (tachypneic) EENT: ATNC, other (jaundice noted) Neck: Present: neck supple, trachea midline Respiratory: Rales Heart: irregular, tachycardia, S1S2 Gastrointestinal: Present: normoactive bowel sounds, obese. Absent: tenderness Integumentary: no rash, chronic venous stasis Neurologic: other (barely able to move the extremities) Musculoskeletal: Present: other (trace pedal edema) Results - Lab Results 07/23/17 04:55 07/23/17 04:55 Most recent lab results Calcium 8.1 mg/dL (8.4-10.2) L 07/22/17 07:37 - Image Kidney/bladder ultrasound: report reviewed Assessment and Plan - Patient Problems (1) KENNA (acute kidney injury) Current Visit: Yes Status: Acute Plan to address problem: Acute kidney injury in the setting of hypotension and CHF. Patient is volume overloaded and hence avoid IV fluids for now. Renal prognosis is guarded. (2) Hyperkalemia Current Visit: Yes Status: Acute Plan to address problem: Kayexalate and Dextrose. Monitor potassium level. (3) Metabolic acidosis Current Visit: Yes Status: Acute Plan to address problem: Start on Sodium bicarbonate. (4) Hypotension Current Visit: Yes Status: Acute Qualifiers: Hypotension type: H Trimester: T Plan to address problem: Monitor BP and if needed will start on Midodrine. (5) CHF (congestive heart failure) Current Visit: Yes Status: Chronic Qualifiers: Congestive heart failure type: C Congestive heart failure chronicity: C Plan to address problem: Followed by Cards. (6) Jaundice Current Visit: Yes Status: Acute
[2017-07-22] MEDS ORDERED: D50W (25GM) Vial IV ONE (12:32)
--- NOTE | 2017-07-22 13:21 | Progress Note ---
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 fib on anticoagulation - Chronic Coumadin because of Coumadin toxicity/liver failure Coumadin toxicity Acute on Chronic combined heart failure - I give him Lasix one-time dose - We will follow - Echo showed EF of 20-25%, with diastolic dysfunction - We will have ICD interrogation Acute kidney injury - Nephrology consult appreciated Hyperbilirubinemia with hepatomegaly secondary to acute liver failure -GI consult appreciated - Ultrasound showed hepatomegaly Venous stasis ulcer - Supportive care DVT prophylaxis - Mechanical Disposition - Continue inpatient care History Interval history: Patient was seen and evaluated this morning, patient has confusion and stuttering speech, and difficulty of breathing. Hospitalist Physical - Physical exam Narrative exam: Patient is in mild cardiopulmonary distress. The patient is obese. Vital signs as documented. Head exam is unremarkable. + scleral icterus . Neck is without jugular venous distension, thyromegaly, or carotid bruits. Lungs crackles. Cardiac exam reveals irregularly irregular rhythm. Abdominal exam reveals normal bowel sounds, no masses. Extremities mild bilateral leg swelling with venous stasis. TELLER: Patient is confused and sleepy. - Constitutional Vitals: Temp Pulse Resp BP Pulse Ox 98.2 F 65 22 96/68 100 07/22/17 12:00 07/22/17 12:00 07/22/17 12:00 07/22/17 12:00 07/22/17 12:00 General appearance: Present: mild distress Results - Labs CBC & Chem 7: 07/22/17 07:37 07/22/17 07:37 Labs: Laboratory Last Values WBC 10.1 K/mm3 (4.5-11.0) 07/22/17 07:37 RBC 3.19 M/mm3 (3.65-5.03) L 07/22/17 07:37 Hgb 10.2 gm/dl (11.8-15.2) L 07/22/17 07:37 Hct 29.0 % (35.5-45.6) L 07/22/17 07:37 MCV 91 fl (84-94) 07/22/17 07:37 MCH 32 pg (28-32) 07/22/17 07:37 MCHC 35 % (32-34) H 07/22/17 07:37 RDW 18.5 % (13.2-15.2) H 07/22/17 07:37 Plt Count 130 K/mm3 (140-440) L 07/22/17 07:37 Lymph % (Auto) Time Study Analyst 07/21/17 05:50 [place] % (Auto) Time Study Analyst 07/21/17 05:50 Eos % (Auto) Time Study Analyst 07/21/17 05:50 Baso % (Auto) Time Study Analyst 07/21/17 05:50 Lymph # Time Study Analyst 07/21/17 05:50 [place] # Time Study Analyst 07/21/17 05:50 Eos # Time Study Analyst 07/21/17 05:50 Baso # Time Study Analyst 07/21/17 05:50 Add Manual Diff Complete 07/22/17 07:37 Total Counted 100 07/22/17 07:37 Seg Neutrophils % Time Study Analyst 07/22/17 07:37 Seg Neuts % (Manual) 88.0 % (40.0-70.0) H 07/22/17 07:37 Band Neutrophils % 9.0 % 07/22/17 07:37 Lymphocytes % (Manual) 1.0 % (13.4-35.0) L 07/22/17 07:37 Reactive Lymphs % (Man) 0 % 07/22/17 07:37 Monocytes % (Manual) 2.0 % (0.0-7.3) 07/22/17 07:37 Eosinophils % (Manual) 0 % (0.0-4.3) 07/22/17 07:37 Basophils % (Manual) 0 % (0.0-1.8) 07/22/17 07:37 Metamyelocytes % 0 % 07/22/17 07:37 Myelocytes % 0 % 07/22/17 07:37 Promyelocytes % 0 % 07/22/17 07:37 Blast Cells % 0 % 07/22/17 07:37 Nucleated RBC % Not Reportable 07/22/17 07:37 Seg Neutrophils # Time Study Analyst 07/21/17 05:50 Seg Neutrophils # Man 8.9 K/mm3 (1.8-7.7) H 07/22/17 07:37 Band Neutrophils # 0.9 K/mm3 07/22/17 07:37 Lymphocytes # (Manual) 0.1 K/mm3 (1.2-5.4) L 07/22/17 07:37 Abs React Lymphs (Man) 0.0 K/mm3 07/22/17 07:37 Monocytes # (Manual) 0.2 K/mm3 (0.0-0.8) 07/22/17 07:37 Eosinophils # (Manual) 0.0 K/mm3 (0.0-0.4) 07/22/17 07:37 Basophils # (Manual) 0.0 K/mm3 (0.0-0.1) 07/22/17 07:37 Metamyelocytes # 0.0 K/mm3 07/22/17 07:37 Myelocytes # 0.0 K/mm3 07/22/17 07:37 Promyelocytes # 0.0 K/mm3 07/22/17 07:37 Blast Cells # 0.0 K/mm3 07/22/17 07:37 Pathologist Review 07/19/17 12:14 WBC Morphology Not Reportable 07/22/17 07:37 Hypersegmented Neuts Not Reportable 07/22/17 07:37 Hyposegmented Neuts Not Reportable 07/22/17 07:37 Hypogranular Neuts Not Reportable 07/22/17 07:37 Smudge Cells Not Reportable 07/22/17 07:37 Toxic Granulation Not Reportable 07/22/17 07:37 Toxic Vacuolation Not Reportable 07/22/17 07:37 Dohle Bodies Not Reportable 07/22/17 07:37 Pelger-Huet Anomaly Not Reportable 07/22/17 07:37 Rosalio Rods Not Reportable 07/22/17 07:37 Platelet Estimate Not Reportable 07/22/17 07:37 Clumped Platelets Not Reportable 07/22/17 07:37 Plt Clumps, EDTA Not Reportable 07/22/17 07:37 Large Platelets Not Reportable 07/22/17 07:37 Giant Platelets Not Reportable 07/22/17 07:37 Platelet Satelliting Not Reportable 07/22/17 07:37 Plt Morphology Comment Not Reportable 07/22/17 07:37 RBC Morphology Not Reportable 07/22/17 07:37 Dimorphic RBCs Not Reportable 07/22/17 07:37 Polychromasia Not Reportable 07/22/17 07:37 Hypochromasia Not Reportable 07/22/17 07:37 Poikilocytosis Not Reportable 07/22/17 07:37 Anisocytosis Not Reportable 07/22/17 07:37 Microcytosis Not Reportable 07/22/17 07:37 Macrocytosis Not Reportable 07/22/17 07:37 Spherocytes Few 07/22/17 07:37 Pappenheimer Bodies Not Reportable 07/22/17 07:37 Sickle Cells Not Reportable 07/22/17 07:37 Target Cells 2+ 07/22/17 07:37 Tear Drop Cells Not Reportable 07/22/17 07:37 Ovalocytes Not Reportable 07/22/17 07:37 Helmet Cells Not Reportable 07/22/17 07:37 Conroy-[place] Bodies Not Reportable 07/22/17 07:37 [place] Rings Not Reportable 07/22/17 07:37 [place] Cells Not Reportable 07/22/17 07:37 Bite Cells Not Reportable 07/22/17 07:37 Crenated Cell Not Reportable 07/22/17 07:37 Elliptocytes Not Reportable 07/22/17 07:37 Acanthocytes (Spur) Not Reportable 07/22/17 07:37 Rouleaux Not Reportable 07/22/17 07:37 Hemoglobin C Crystals Not Reportable 07/22/17 07:37 Schistocytes Not Reportable 07/22/17 07:37 Malaria parasites Not Reportable 07/22/17 07:37 Percent Retic 1.59 % (0.78-2.58) 07/21/17 10:23 Osmin Bodies Not Reportable 07/22/17 07:37 Hem Pathologist Commnt No 07/22/17 07:37 PT 34.6 Sec. (12.2-14.9) H 07/22/17 07:37 INR 3.21 (0.87-1.13) H 07/22/17 07:37 APTT 62.0 Sec. (24.2-36.6) H* 07/22/17 07:37 Sodium 134 mmol/L (137-145) L 07/22/17 07:37 Potassium 5.3 mmol/L (3.6-5.0) H 07/22/17 07:37 Chloride 98.1 mmol/L (98-107) 07/22/17 07:37 Carbon Dioxide 19 mmol/L (22-30) L 07/22/17 07:37 Anion Gap 22 mmol/L 07/22/17 07:37 BUN 94 mg/dL (9-20) H 07/22/17 07:37 Creatinine 1.8 mg/dL (0.8-1.5) H 07/22/17 07:37 Estimated GFR 48 ml/min 07/22/17 07:37 BUN/Creatinine Ratio 52.22 % 07/22/17 07:37 Glucose 77 mg/dL (75-100) 07/22/17 07:37 Calcium 8.1 mg/dL (8.4-10.2) L 07/22/17 07:37 Total Bilirubin 13.70 mg/dL (0.1-1.2) H 07/22/17 07:37 Direct Bilirubin 7.4 mg/dL (0-0.2) H 07/21/17 05:50 Indirect Bilirubin 3.5 mg/dL 07/21/17 05:50 AST 31 units/L (5-40) 07/22/17 07:37 ALT 14 units/L (7-56) 07/22/17 07:37 Alkaline Phosphatase 160 units/L (35-129) H 07/22/17 07:37 Ammonia 104.0 umol/L (25-60) H 07/21/17 17:10 Lactate Dehydrogenase 164 units/L (91-180) 07/21/17 10:23 Total Creatine Kinase 64 units/L (55-170) 07/19/17 12:14 CK-MB (CK-2) 2.3 ng/mL (0.0-4.0) 07/19/17 12:14 CK-MB (CK-2) Rel Index 3.5 (0-4) 07/19/17 12:14 Troponin T 0.014 ng/mL (0.00-0.029) 07/19/17 12:14 NT-Pro-B Natriuret Pep 7153 pg/mL (0-900) H 07/19/17 14:24 Total Protein 8.1 g/dL (6.3-8.2) 07/22/17 07:37 Albumin 2.2 g/dL (3.9-5) L 07/22/17 07:37 Albumin/Globulin Ratio 0.4 % 07/22/17 07:37 Triglycerides 80 mg/dL (2-149) 07/19/17 14:38 Cholesterol 78 mg/dL (50-199) 07/19/17 14:38 LDL Cholesterol Direct 56 mg/dL (50-130) 07/19/17 14:38 HDL Cholesterol 6 mg/dL (40-59) L 07/19/17 14:38 Cholesterol/HDL Ratio 13.00 % 07/19/17 14:38 Hepatitis A IgM Ab Non-reactive (NonReactive) 07/21/17 05:50 Hep Bs Antigen Non-reactive (Negative) 07/21/17 05:50 Hep B Core IgM Ab Non-reactive (NonReactive) 07/21/17 05:50 Hepatitis C Antibody Non-reactive (NonReactive) 07/21/17 05:50 Blood Type O NEGATIVE 07/19/17 12:14 Antibody Screen Negative 07/19/17 12:14
[2017-07-22] MEDS ORDERED: D50W (25GM) Syringe IV ONE (14:00)
--- NOTE | 2017-07-22 14:18 | Progress Note ---
Assessment and Plan Initiate IV diuretics. - Patient Problems (1) Acute on chronic systolic heart failure Current Visit: Yes Status: Acute (2) Cardiomyopathy Current Visit: Yes Status: Chronic Qualifiers: Cardiomyopathy type: C (3) Hyperbilirubinemia Current Visit: Yes Status: Acute (4) Pericardial effusion Current Visit: Yes Status: Acute (5) Mitral regurgitation Current Visit: Yes Status: Chronic Qualifiers: Cardiac valve disease etiology: C (6) Jaundice Current Visit: Yes Status: Acute (7) Acute kidney injury Current Visit: Yes Status: Acute (8) Supratherapeutic INR Current Visit: Yes Status: Acute (9) Right ventricular dysfunction Current Visit: Yes Status: Chronic (10) Permanent atrial fibrillation Current Visit: Yes Status: Chronic (11) AICD (automatic cardioverter/defibrillator) present Current Visit: Yes Status: Chronic (12) Tricuspid regurgitation Current Visit: Yes Status: Chronic Qualifiers: Cardiac valve disease etiology: C Subjective Date of service: 07/22/17 Principal diagnosis: Elevated BR, Acute on chronic SHF, CMP, Pericardial effusion, Perm Afib Interval history: He is not verbalizing complaints. However, he admits to shortness of breath. He is in atrial fibrillation with a controlled ventricular rate. Objective Vital Signs Temp Pulse Resp BP BP Pulse Ox 07/22/17 12:00 98.2 F 65 22 96/68 100 07/22/17 08:00 98.5 F 77 22 107/72 98 07/22/17 06:55 98.7 F 07/22/17 05:18 68 97 07/22/17 05:17 66 22 103/64 97 07/22/17 03:21 99.1 F 07/22/17 01:02 78 97 07/22/17 01:01 68 22 86/58 96 07/21/17 22:58 100.9 F H 98 H 100/65 07/21/17 21:36 88 22 100/65 94 07/21/17 19:00 98.7 F 68 92/64 - Physical Examination General: Other (appears uncomfortable) HEENT: Positive: EOMI, Normocephaly, Mucus Membranes Moist, Other (icteric sclera) Neck: Positive: neck supple, trachea midline, JVD/HJR (elevated) Cardiac: Positive: irregularly irregular, S1/S2 Lungs: Positive: Rales (bibasilar ) Neuro: Positive: Other (awake) Abdomen: Positive: Soft, Active Bowel Sounds. Negative: Tender Skin: Positive: Other (BLE stasis dermatitis; jaundiced) Musculoskeletal: Normal Range of Motion Extremities: Present: +3 Edema (BLEs, chronic skin changes) - Labs and Meds Cardiac Enzymes 07/22/17 Range/Units 07:37 AST 31 (5-40) units/L Coagulation 07/22/17 Range/Units 07:37 PT 34.6 H (12.2-14.9) Sec. INR 3.21 H (0.87-1.13) APTT 62.0 H* (24.2-36.6) Sec. CBC 07/22/17 Range/Units 07:37 WBC 10.1 (4.5-11.0) K/mm3 RBC 3.19 L (3.65-5.03) M/mm3 Hgb 10.2 L (11.8-15.2) gm/dl Hct 29.0 L (35.5-45.6) % Plt Count 130 L (140-440) K/mm3 Comprehensive Metabolic Panel 07/22/17 Range/Units 07:37 Sodium 134 L (137-145) mmol/L Potassium 5.3 H (3.6-5.0) mmol/L Chloride 98.1 (98-107) mmol/L Carbon Dioxide 19 L (22-30) mmol/L BUN 94 H (9-20) mg/dL Creatinine 1.8 H (0.8-1.5) mg/dL Glucose 77 (75-100) mg/dL Calcium 8.1 L (8.4-10.2) mg/dL AST 31 (5-40) units/L ALT 14 (7-56) units/L Alkaline Phosphatase 160 H (35-129) units/L Total Protein 8.1 (6.3-8.2) g/dL Albumin 2.2 L (3.9-5) g/dL - Imaging and Cardiology EKG: image reviewed Echo: report reviewed (06/2017: EF 20%, severe MR, severe TR, moderate pericardial effusion ) - Telemetry EKG Rhythm: Atrial Fibrillation
[2017-07-22] MEDS: KIONEX PO SCH ×2 (16:30→20:59)
[2017-07-22] MEDS: XIFAXAN PO SCH ×2 (16:30→22:36)
[2017-07-22] MEDS: SODIUM BICARBONATE PO SCH ×2 (16:30→22:38)
[2017-07-22] MEDS: PROVENTIL IH PRN (23:51)
[2017-07-23] MEDS: CEPHULAC PO SCH ×6 (00:23→23:24)
[2017-07-23 06:01] LABS: Hematocrit 30.3 % (35.5-45.6); Hemoglobin 10.6 gm/dl (11.8-15.2); Mean Corpuscular HGB Conc 35 % (32-34); Mean Corpuscular Hemoglobin 32 pg (28-32); Mean Corpuscular Volume 91 fl (84-94); Red Blood Count 3.33 M/mm3 (3.65-5.03); Red Cell Distribution Width 17.8 % (13.2-15.2)
[2017-07-23 06:06] LABS: Platelet Count 94 K/mm3 (140-440)
[2017-07-23 06:28] LABS: Partial Thromboplastin Time TNR Sec. (24.2-36.6)
[2017-07-23 06:29] LABS: INR TNR (0.87-1.13)
[2017-07-23 06:30] LABS: Albumin 2.2 g/dL (3.9-5); Albumin/Globulin Ratio 0.4 %; BUN/Creatinine Ratio 61.87; Calcium 8.1 mg/dL (8.4-10.2); Chloride 99.4 mmol/L (98-107); Potassium 4.4 mmol/L (3.6-5.0); Total Protein 8.2 g/dL (6.3-8.2)
[2017-07-23 06:57] LABS: Basophils % (Manual) 0 % (0.0-1.8); Blastocytes % (Manual) 0 %; Eosinophils % (Manual) 0 % (0.0-4.3)
[2017-07-23 06:58] LABS: Diff Status Complete; Hypochromasia 1+; Platelet Estimate Consistent w Auto; Target Cells 2+
--- NOTE | 2017-07-23 07:12 | Progress Note ---
Assessment and Plan - Patient Problems (1) KENNA (acute kidney injury) Current Visit: Yes Status: Acute Plan to address problem: Acute kidney injury in the setting of hypotension and CHF. Renal function is improving. (2) Hyperkalemia Current Visit: Yes Status: Acute Plan to address problem: Improved. Monitor potassium level. (3) Metabolic acidosis Current Visit: Yes Status: Acute Plan to address problem: Continue Sodium bicarbonate. (4) Hypotension Current Visit: Yes Status: Acute Qualifiers: Hypotension type: H Trimester: T Plan to address problem: Monitor BP. Start on Midodrine. (5) CHF (congestive heart failure) Current Visit: Yes Status: Chronic Qualifiers: Congestive heart failure type: C Congestive heart failure chronicity: C Plan to address problem: Followed by Cards. (6) Jaundice Current Visit: Yes Status: Acute Subjective Date of service: 07/23/17 Principal diagnosis: Elevated BR, Acute on chronic SHF, CMP, Pericardial effusion, Perm Afib Interval history: Patient is non-verbal. Objective - Vital Signs Vital signs: Vital Signs - 12hr 07/22/17 07/22/17 07/22/17 21:06 22:58 23:00 Temperature 98.1 F Pulse Rate 63 68 Pulse Rate [ Anterior Bilateral Throughout] Pulse Rate [ Bilateral Throughout] Respiratory 16 24 Rate Respiratory Rate [Anterior Bilateral Throughout] Respiratory Rate [Bilateral Throughout] Blood Pressure 140/79 [Left] O2 Sat by Pulse 100 Oximetry 07/22/17 07/22/17 07/23/17 23:45 23:57 02:29 Temperature 98.4 F Pulse Rate 63 Pulse Rate [ 77 75 Anterior Bilateral Throughout] Pulse Rate [ 77 75 Bilateral Throughout] Respiratory 16 Rate Respiratory 24 22 Rate [Anterior Bilateral Throughout] Respiratory 24 22 Rate [Bilateral Throughout] Blood Pressure [Left] O2 Sat by Pulse 93 Oximetry 07/23/17 05:18 Temperature 98.5 F Pulse Rate 68 Pulse Rate [ Anterior Bilateral Throughout] Pulse Rate [ Bilateral Throughout] Respiratory 16 Rate Respiratory Rate [Anterior Bilateral Throughout] Respiratory Rate [Bilateral Throughout] Blood Pressure 125/82 [Left] O2 Sat by Pulse 100 Oximetry - General Appearance General appearance: well-developed, well-nourished, appears stated age, obese, other (no distress) EENT: ATNC, PERRL Neck: supple Respiratory: Present: Rales Cardiology: regular, S1S2, no murmurs Gastrointestinal: normoactive bowel sounds, no tenderness, obese Integumentary: no rash Neurologic: aphasia, other (not following any command) Musculoskeletal: other (1+ LE edema noted) - Lab 07/23/17 04:55 07/23/17 04:55 Most recent lab results Calcium 8.1 mg/dL (8.4-10.2) L 07/23/17 04:55
[2017-07-23 07:40] LABS: INR 3.97 (0.87-1.13)
[2017-07-23 07:44] LABS: Partial Thromboplastin Time 66.6 Sec. (24.2-36.6)
--- NOTE | 2017-07-23 08:01 | Gastroenterology Progress Note ---
Assessment and Plan - Patient Problems (1) Coumadin toxicity Current Visit: Yes Status: Acute Qualifiers: Encounter type: E Injury intent: I (2) Elevated BUN Current Visit: Yes Status: Acute (3) Jaundice Current Visit: Yes Status: Acute (4) Cirrhosis Current Visit: Yes Status: Acute Qualifiers: Hepatic cirrhosis type: H Ascites presence: A Plan to address problem: Worsening jaundice. 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 Further, the prognosis seems poor as he may be evolving to hepatorenal syndrome. Family should be notified if that is within the parameters of his incarceration status. (5) CHF (congestive heart failure) Current Visit: Yes Status: Chronic Qualifiers: Congestive heart failure type: C Congestive heart failure chronicity: C Subjective Date of service: 07/23/17 Principal diagnosis: liver failure Interval history: Non verbal, but awake and lethargic Objective - Constitutional Vitals: Temp Pulse Resp BP Pulse Ox 98.5 F 68 16 125/82 100 07/23/17 05:18 07/23/17 05:18 07/23/17 05:18 07/23/17 05:18 07/23/17 05:18 General appearance: mild distress, obese - EENT Eyes: PERRL, EOM intact, scleral icterus - Neck Neck: supple, normal ROM - Respiratory Respiratory effort: normal, labored Respiratory: bilateral: CTA - Cardiovascular Rhythm: regular - Gastrointestinal General gastrointestinal: Present: soft, non-tender, non-distended, normal bowel sounds - Neurologic Neurological: generalized weakness, other (follows a few simple commands) - Labs CBC & Chem 7: 07/23/17 04:55 07/23/17 04:55 Labs: Laboratory Results - last 24 hr 07/21/17 07/22/17 07/22/17 10:23 07:37 07:37 WBC 10.1 RBC 3.19 L Hgb 10.2 L Hct 29.0 L MCV 91 MCH 32 MCHC 35 H RDW 18.5 H Plt Count 130 L Add Manual Diff Complete Total Counted 100 Seg Neutrophils % Director Of Assessing Seg Neuts % (Manual) 88.0 H Band Neutrophils % 9.0 Lymphocytes % (Manual) 1.0 L Reactive Lymphs % (Man) 0 Monocytes % (Manual) 2.0 Eosinophils % (Manual) 0 Basophils % (Manual) 0 Metamyelocytes % 0 Myelocytes % 0 Promyelocytes % 0 Blast Cells % 0 Nucleated RBC % Not Reportable Seg Neutrophils # Man 8.9 H Band Neutrophils # 0.9 Lymphocytes # (Manual) 0.1 L Abs React Lymphs (Man) 0.0 Monocytes # (Manual) 0.2 Eosinophils # (Manual) 0.0 Basophils # (Manual) 0.0 Metamyelocytes # 0.0 Myelocytes # 0.0 Promyelocytes # 0.0 Blast Cells # 0.0 WBC Morphology Not Reportable Hypersegmented Neuts Not Reportable Hyposegmented Neuts Not Reportable Hypogranular Neuts Not Reportable Smudge Cells Not Reportable Toxic Granulation Not Reportable Toxic Vacuolation Not Reportable Dohle Bodies Not Reportable Pelger-Huet Anomaly Not Reportable Rosalio Rods Not Reportable Platelet Estimate Not Reportable Clumped Platelets Not Reportable Plt Clumps, EDTA Not Reportable Large Platelets Not Reportable Giant Platelets Not Reportable Platelet Satelliting Not Reportable Plt Morphology Comment Not Reportable RBC Morphology Not Reportable Dimorphic RBCs Not Reportable Polychromasia Not Reportable Hypochromasia Not Reportable Poikilocytosis Not Reportable Anisocytosis Not Reportable Microcytosis Not Reportable Macrocytosis Not Reportable Spherocytes Few Pappenheimer Bodies Not Reportable Sickle Cells Not Reportable Target Cells 2+ Tear Drop Cells Not Reportable Ovalocytes Not Reportable Helmet Cells Not Reportable [place] Bodies Not Reportable Datil Rings Not Reportable [place] Cells Not Reportable Bite Cells Not Reportable Crenated Cell Not Reportable Elliptocytes Not Reportable Acanthocytes (Spur) Not Reportable Rouleaux Not Reportable Hemoglobin C Crystals Not Reportable Schistocytes Not Reportable Malaria parasites Not Reportable Osmin Bodies Not Reportable Haptoglobin 157 Hem Pathologist Commnt No PT 34.6 H INR 3.21 H APTT 62.0 H* Sodium Potassium Chloride Carbon Dioxide Anion Gap BUN Creatinine Estimated GFR BUN/Creatinine Ratio Glucose Calcium Total Bilirubin AST ALT Alkaline Phosphatase Total Protein Albumin Albumin/Globulin Ratio 07/22/17 07/23/17 07/23/17 07:37 04:55 04:55 WBC 11.0 RBC 3.33 L Hgb 10.6 L Hct 30.3 L MCV 91 MCH 32 MCHC 35 H RDW 17.8 H Plt Count 94 L Add Manual Diff Complete Total Counted 100 Seg Neutrophils % Director Of Assessing Seg Neuts % (Manual) 88.0 H Band Neutrophils % 6.0 Lymphocytes % (Manual) 3.0 L Reactive Lymphs % (Man) 0 Monocytes % (Manual) 3.0 Eosinophils % (Manual) 0 Basophils % (Manual) 0 Metamyelocytes % 0 Myelocytes % 0 Promyelocytes % 0 Blast Cells % 0 Nucleated RBC % Not Reportable Seg Neutrophils # Man 9.7 H Band Neutrophils # 0.7 Lymphocytes # (Manual) 0.3 L Abs React Lymphs (Man) 0.0 Monocytes # (Manual) 0.3 Eosinophils # (Manual) 0.0 Basophils # (Manual) 0.0 Metamyelocytes # 0.0 Myelocytes # 0.0 Promyelocytes # 0.0 Blast Cells # 0.0 WBC Morphology Not Reportable Hypersegmented Neuts Not Reportable Hyposegmented Neuts Not Reportable Hypogranular Neuts Not Reportable Smudge Cells Not Reportable Toxic Granulation Not Reportable Toxic Vacuolation Not Reportable Dohle Bodies Not Reportable Pelger-Huet Anomaly Not Reportable Rosalio Rods Not Reportable Platelet Estimate Consistent w auto Clumped Platelets Not Reportable Plt Clumps, EDTA Not Reportable Large Platelets Not Reportable Giant Platelets Not Reportable Platelet Satelliting Not Reportable Plt Morphology Comment Not Reportable RBC Morphology Not Reportable Dimorphic RBCs Not Reportable Polychromasia Not Reportable Hypochromasia 1+ Poikilocytosis Not Reportable Anisocytosis Not Reportable Microcytosis Not Reportable Macrocytosis Not Reportable Spherocytes Not Reportable Pappenheimer Bodies Not Reportable Sickle Cells Not Reportable Target Cells 2+ Tear Drop Cells Not Reportable Ovalocytes Not Reportable Helmet Cells Not Reportable [place] Bodies Not Reportable Datil Rings Not Reportable [place] Cells Not Reportable Bite Cells Not Reportable Crenated Cell Not Reportable Elliptocytes Not Reportable Acanthocytes (Spur) Not Reportable Rouleaux Not Reportable Hemoglobin C Crystals Not Reportable Schistocytes Not Reportable Malaria parasites Not Reportable Osmin Bodies Not Reportable Haptoglobin Hem Pathologist Commnt No PT INR APTT Sodium 134 L 138 Potassium 5.3 H 4.4 Chloride 98.1 99.4 Carbon Dioxide 19 L 19 L Anion Gap 22 24 BUN 94 H 99 H Creatinine 1.8 H 1.6 H Estimated GFR 48 55 BUN/Creatinine Ratio 52.22 61.87 Glucose 77 84 Calcium 8.1 L 8.1 L Total Bilirubin 13.70 H 16.00 H AST 31 36 ALT 14 16 Alkaline Phosphatase 160 H 167 H Total Protein 8.1 8.2 Albumin 2.2 L 2.2 L Albumin/Globulin Ratio 0.4 0.4 07/23/17 07/23/17 04:55 07:12 WBC RBC Hgb Hct MCV MCH MCHC RDW Plt Count Add Manual Diff Total Counted Seg Neutrophils % Seg Neuts % (Manual) Band Neutrophils % Lymphocytes % (Manual) Reactive Lymphs % (Man) Monocytes % (Manual) Eosinophils % (Manual) Basophils % (Manual) Metamyelocytes % Myelocytes % Promyelocytes % Blast Cells % Nucleated RBC % Seg Neutrophils # Man Band Neutrophils # Lymphocytes # (Manual) Abs React Lymphs (Man) Monocytes # (Manual) Eosinophils # (Manual) Basophils # (Manual) Metamyelocytes # Myelocytes # Promyelocytes # Blast Cells # WBC Morphology Hypersegmented Neuts Hyposegmented Neuts Hypogranular Neuts Smudge Cells Toxic Granulation Toxic Vacuolation Dohle Bodies Pelger-Huet Anomaly Rosalio Rods Platelet Estimate Clumped Platelets Plt Clumps, EDTA Large Platelets Giant Platelets Platelet Satelliting Plt Morphology Comment RBC Morphology Dimorphic RBCs Polychromasia Hypochromasia Poikilocytosis Anisocytosis Microcytosis Macrocytosis Spherocytes Pappenheimer Bodies Sickle Cells Target Cells Tear Drop Cells Ovalocytes Helmet Cells [place] Bodies Datil Rings [place] Cells Bite Cells Crenated Cell Elliptocytes Acanthocytes (Spur) Rouleaux Hemoglobin C Crystals Schistocytes Malaria parasites Osmin Bodies Haptoglobin Hem Pathologist Commnt PT TNR 40.9 H INR TNR 3.97 H APTT TNR 66.6 H* Sodium Potassium Chloride Carbon Dioxide Anion Gap BUN Creatinine Estimated GFR BUN/Creatinine Ratio Glucose Calcium Total Bilirubin AST ALT Alkaline Phosphatase Total Protein Albumin Albumin/Globulin Ratio
--- NOTE | 2017-07-23 09:26 | Progress Note ---
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 fib on anticoagulation - Chronic Coumadin because of Coumadin toxicity/liver failure Coumadin toxicity Acute on Chronic combined heart failure/Acute kidney injury Cardio-renal syndrome VS Hepatorenal syndrome - I give him Lasix one-time dose - We will follow - Echo showed EF of 20-25%, with diastolic dysfunction - ICD interrogation - Nephrology and cardiology consult appreciated Hyperbilirubinemia with hepatomegaly secondary to acute liver failure -GI consult appreciated - Ultrasound showed hepatomegaly Venous stasis ulcer - Supportive care DVT prophylaxis - Mechanical Disposition - continue inpatient care Prognosis - Guarded History Interval history: Patient was seen and evaluated this morning, patient has confusion, and difficulty of breathing. Hospitalist Physical - Physical exam Narrative exam: Patient is in mild cardiopulmonary distress. The patient is obese. Vital signs as documented. Head exam is unremarkable. + scleral icterus . Neck is without jugular venous distension, thyromegaly, or carotid bruits. Lungs crackles. Cardiac exam reveals irregularly irregular rhythm. Abdominal exam reveals normal bowel sounds, no masses. Extremities mild bilateral leg swelling with venous stasis. COSTUME DIRECTOR: Patient is confused and sleepy. - Constitutional Vitals: Temp Pulse Resp BP Pulse Ox 98.5 F 77 20 95/64 96 07/23/17 05:18 07/23/17 08:51 07/23/17 08:51 07/23/17 08:51 07/23/17 08:51 General appearance: Present: mild distress Results - Labs CBC & Chem 7: 07/23/17 04:55 07/23/17 04:55 Labs: Laboratory Last Values WBC 11.0 K/mm3 (4.5-11.0) 07/23/17 04:55 RBC 3.33 M/mm3 (3.65-5.03) L 07/23/17 04:55 Hgb 10.6 gm/dl (11.8-15.2) L 07/23/17 04:55 Hct 30.3 % (35.5-45.6) L 07/23/17 04:55 MCV 91 fl (84-94) 07/23/17 04:55 MCH 32 pg (28-32) 07/23/17 04:55 MCHC 35 % (32-34) H 07/23/17 04:55 RDW 17.8 % (13.2-15.2) H 07/23/17 04:55 Plt Count 94 K/mm3 (140-440) L 07/23/17 04:55 Lymph % (Auto) Coal Deliverer 07/21/17 05:50 [place] % (Auto) Coal Deliverer 07/21/17 05:50 Eos % (Auto) Coal Deliverer 07/21/17 05:50 Baso % (Auto) Coal Deliverer 07/21/17 05:50 Lymph # Coal Deliverer 07/21/17 05:50 [place] # Coal Deliverer 07/21/17 05:50 Eos # Coal Deliverer 07/21/17 05:50 Baso # Coal Deliverer 07/21/17 05:50 Add Manual Diff Complete 07/23/17 04:55 Total Counted 100 07/23/17 04:55 Seg Neutrophils % Coal Deliverer 07/23/17 04:55 Seg Neuts % (Manual) 88.0 % (40.0-70.0) H 07/23/17 04:55 Band Neutrophils % 6.0 % 07/23/17 04:55 Lymphocytes % (Manual) 3.0 % (13.4-35.0) L 07/23/17 04:55 Reactive Lymphs % (Man) 0 % 07/23/17 04:55 Monocytes % (Manual) 3.0 % (0.0-7.3) 07/23/17 04:55 Eosinophils % (Manual) 0 % (0.0-4.3) 07/23/17 04:55 Basophils % (Manual) 0 % (0.0-1.8) 07/23/17 04:55 Metamyelocytes % 0 % 07/23/17 04:55 Myelocytes % 0 % 07/23/17 04:55 Promyelocytes % 0 % 07/23/17 04:55 Blast Cells % 0 % 07/23/17 04:55 Nucleated RBC % Not Reportable 07/23/17 04:55 Seg Neutrophils # Coal Deliverer 07/21/17 05:50 Seg Neutrophils # Man 9.7 K/mm3 (1.8-7.7) H 07/23/17 04:55 Band Neutrophils # 0.7 K/mm3 07/23/17 04:55 Lymphocytes # (Manual) 0.3 K/mm3 (1.2-5.4) L 07/23/17 04:55 Abs React Lymphs (Man) 0.0 K/mm3 07/23/17 04:55 Monocytes # (Manual) 0.3 K/mm3 (0.0-0.8) 07/23/17 04:55 Eosinophils # (Manual) 0.0 K/mm3 (0.0-0.4) 07/23/17 04:55 Basophils # (Manual) 0.0 K/mm3 (0.0-0.1) 07/23/17 04:55 Metamyelocytes # 0.0 K/mm3 07/23/17 04:55 Myelocytes # 0.0 K/mm3 07/23/17 04:55 Promyelocytes # 0.0 K/mm3 07/23/17 04:55 Blast Cells # 0.0 K/mm3 07/23/17 04:55 Pathologist Review 07/19/17 12:14 WBC Morphology Not Reportable 07/23/17 04:55 Hypersegmented Neuts Not Reportable 07/23/17 04:55 Hyposegmented Neuts Not Reportable 07/23/17 04:55 Hypogranular Neuts Not Reportable 07/23/17 04:55 Smudge Cells Not Reportable 07/23/17 04:55 Toxic Granulation Not Reportable 07/23/17 04:55 Toxic Vacuolation Not Reportable 07/23/17 04:55 Dohle Bodies Not Reportable 07/23/17 04:55 Pelger-Huet Anomaly Not Reportable 07/23/17 04:55 Rosalio Rods Not Reportable 07/23/17 04:55 Platelet Estimate Consistent w auto 07/23/17 04:55 Clumped Platelets Not Reportable 07/23/17 04:55 Plt Clumps, EDTA Not Reportable 07/23/17 04:55 Large Platelets Not Reportable 07/23/17 04:55 Giant Platelets Not Reportable 07/23/17 04:55 Platelet Satelliting Not Reportable 07/23/17 04:55 Plt Morphology Comment Not Reportable 07/23/17 04:55 RBC Morphology Not Reportable 07/23/17 04:55 Dimorphic RBCs Not Reportable 07/23/17 04:55 Polychromasia Not Reportable 07/23/17 04:55 Hypochromasia 1+ 07/23/17 04:55 Poikilocytosis Not Reportable 07/23/17 04:55 Anisocytosis Not Reportable 07/23/17 04:55 Microcytosis Not Reportable 07/23/17 04:55 Macrocytosis Not Reportable 07/23/17 04:55 Spherocytes Not Reportable 07/23/17 04:55 Pappenheimer Bodies Not Reportable 07/23/17 04:55 Sickle Cells Not Reportable 07/23/17 04:55 Target Cells 2+ 07/23/17 04:55 Tear Drop Cells Not Reportable 07/23/17 04:55 Ovalocytes Not Reportable 07/23/17 04:55 Helmet Cells Not Reportable 07/23/17 04:55 Conroy-[place] Bodies Not Reportable 07/23/17 04:55 [place] Rings Not Reportable 07/23/17 04:55 David Cells Not Reportable 07/23/17 04:55 Bite Cells Not Reportable 07/23/17 04:55 Crenated Cell Not Reportable 07/23/17 04:55 Elliptocytes Not Reportable 07/23/17 04:55 Acanthocytes (Spur) Not Reportable 07/23/17 04:55 Rouleaux Not Reportable 07/23/17 04:55 Hemoglobin C Crystals Not Reportable 07/23/17 04:55 Schistocytes Not Reportable 07/23/17 04:55 Malaria parasites Not Reportable 07/23/17 04:55 Percent Retic 1.59 % (0.78-2.58) 07/21/17 10:23 Osmin Bodies Not Reportable 07/23/17 04:55 Haptoglobin 157 mg/dL (43-212) 07/21/17 10:23 Hem Pathologist Commnt No 07/23/17 04:55 PT 40.9 Sec. (12.2-14.9) H 07/23/17 07:12 INR 3.97 (0.87-1.13) H 07/23/17 07:12 APTT 66.6 Sec. (24.2-36.6) H* 07/23/17 07:12 Sodium 138 mmol/L (137-145) 07/23/17 04:55 Potassium 4.4 mmol/L (3.6-5.0) 07/23/17 04:55 Chloride 99.4 mmol/L (98-107) 07/23/17 04:55 Carbon Dioxide 19 mmol/L (22-30) L 07/23/17 04:55 Anion Gap 24 mmol/L 07/23/17 04:55 BUN 99 mg/dL (9-20) H 07/23/17 04:55 Creatinine 1.6 mg/dL (0.8-1.5) H 07/23/17 04:55 Estimated GFR 55 ml/min 07/23/17 04:55 BUN/Creatinine Ratio 61.87 % 07/23/17 04:55 Glucose 84 mg/dL (75-100) 07/23/17 04:55 Calcium 8.1 mg/dL (8.4-10.2) L 07/23/17 04:55 Total Bilirubin 16.00 mg/dL (0.1-1.2) H 07/23/17 04:55 Direct Bilirubin 7.4 mg/dL (0-0.2) H 07/21/17 05:50 Indirect Bilirubin 3.5 mg/dL 07/21/17 05:50 AST 36 units/L (5-40) 07/23/17 04:55 ALT 16 units/L (7-56) 07/23/17 04:55 Alkaline Phosphatase 167 units/L (35-129) H 07/23/17 04:55 Ammonia 104.0 umol/L (25-60) H 07/21/17 17:10 Lactate Dehydrogenase 164 units/L (91-180) 07/21/17 10:23 Total Creatine Kinase 64 units/L (55-170) 07/19/17 12:14 CK-MB (CK-2) 2.3 ng/mL (0.0-4.0) 07/19/17 12:14 CK-MB (CK-2) Rel Index 3.5 (0-4) 07/19/17 12:14 Troponin T 0.014 ng/mL (0.00-0.029) 07/19/17 12:14 NT-Pro-B Natriuret Pep 7153 pg/mL (0-900) H 07/19/17 14:24 Total Protein 8.2 g/dL (6.3-8.2) 07/23/17 04:55 Albumin 2.2 g/dL (3.9-5) L 07/23/17 04:55 Albumin/Globulin Ratio 0.4 % 07/23/17 04:55 Triglycerides 80 mg/dL (2-149) 07/19/17 14:38 Cholesterol 78 mg/dL (50-199) 07/19/17 14:38 LDL Cholesterol Direct 56 mg/dL (50-130) 07/19/17 14:38 HDL Cholesterol 6 mg/dL (40-59) L 07/19/17 14:38 Cholesterol/HDL Ratio 13.00 % 07/19/17 14:38 Hepatitis A IgM Ab Non-reactive (NonReactive) 07/21/17 05:50 Hep Bs Antigen Non-reactive (Negative) 07/21/17 05:50 Hep B Core IgM Ab Non-reactive (NonReactive) 07/21/17 05:50 Hepatitis C Antibody Non-reactive (NonReactive) 07/21/17 05:50 Blood Type O NEGATIVE 07/19/17 12:14 Antibody Screen Negative 07/19/17 12:14
[2017-07-23] MEDS: LASIX IV SCH (10:50)
[2017-07-23] MEDS: SODIUM BICARBONATE PO SCH ×3 (10:50→23:22)
[2017-07-23] MEDS: PEPCID PO SCH ×2 (10:50→23:22)
[2017-07-23] MEDS: XIFAXAN PO SCH ×2 (10:51→23:23)
[2017-07-23] MEDS: PROVENTIL IH PRN (11:59)
--- NOTE | 2017-07-23 16:51 | Progress Note ---
Assessment and Plan His prognosis does not appear to be good. I wonder if trial of Dobutrex infusion may be of any help at this time. - Patient Problems (1) Acute on chronic systolic heart failure Current Visit: Yes Status: Acute (2) Cardiomyopathy Current Visit: Yes Status: Chronic Qualifiers: Cardiomyopathy type: C (3) Hyperbilirubinemia Current Visit: Yes Status: Acute (4) Pericardial effusion Current Visit: Yes Status: Acute (5) Mitral regurgitation Current Visit: Yes Status: Chronic Qualifiers: Cardiac valve disease etiology: C (6) Jaundice Current Visit: Yes Status: Acute (7) Acute kidney injury Current Visit: Yes Status: Acute (8) Supratherapeutic INR Current Visit: Yes Status: Acute (9) Right ventricular dysfunction Current Visit: Yes Status: Chronic (10) Permanent atrial fibrillation Current Visit: Yes Status: Chronic (11) AICD (automatic cardioverter/defibrillator) present Current Visit: Yes Status: Chronic (12) Tricuspid regurgitation Current Visit: Yes Status: Chronic Qualifiers: Cardiac valve disease etiology: C (13) Cirrhosis Current Visit: Yes Status: Acute Qualifiers: Hepatic cirrhosis type: H Ascites presence: A Subjective Date of service: 07/23/17 Principal diagnosis: Rosae on chronic SHF, CMP, Pericardial effusion, Liver failure Interval history: He remains lethargic. Objective Vital Signs Temp Pulse Pulse Pulse Pulse Resp Resp 07/23/17 15:54 98.6 F 56 L 20 07/23/17 12:10 82 18 07/23/17 11:59 72 18 07/23/17 10:00 94 H 94 H 07/23/17 08:51 77 20 07/23/17 05:18 98.5 F 68 16 07/23/17 02:29 98.4 F 63 16 07/22/17 23:57 75 75 22 07/22/17 23:45 77 77 24 07/22/17 23:00 24 07/22/17 22:58 68 07/22/17 21:06 98.1 F 63 16 Resp BP BP Pulse Ox 07/23/17 15:54 95/60 96 07/23/17 12:10 07/23/17 11:59 07/23/17 10:00 07/23/17 08:51 95/64 96 07/23/17 05:18 125/82 100 07/23/17 02:29 93 07/22/17 23:57 22 07/22/17 23:45 24 07/22/17 23:00 07/22/17 22:58 07/22/17 21:06 140/79 100 - Physical Examination General: Other (lethargic) HEENT: Positive: EOMI, Normocephaly, Mucus Membranes Moist, Other (icteric sclera) Neck: Positive: neck supple, trachea midline Cardiac: Positive: irregularly irregular, S1/S2 Lungs: Positive: Rales (at lung bases) Neuro: Positive: Other (awake, but lethargic) Abdomen: Positive: Soft, Active Bowel Sounds. Negative: Tender Skin: Positive: Other (BLE stasis dermatitis) Musculoskeletal: Normal Range of Motion Extremities: Present: +3 Edema (BLEs, chronic skin changes) - Labs and Meds Cardiac Enzymes 07/23/17 Range/Units 04:55 AST 36 (5-40) units/L Coagulation 07/23/17 07/23/17 Range/Units 04:55 07:12 PT TNR 40.9 H INR TNR 3.97 H APTT TNR 66.6 H* CBC 07/23/17 Range/Units 04:55 WBC 11.0 (4.5-11.0) K/mm3 RBC 3.33 L (3.65-5.03) M/mm3 Hgb 10.6 L (11.8-15.2) gm/dl Hct 30.3 L (35.5-45.6) % Plt Count 94 L (140-440) K/mm3 Comprehensive Metabolic Panel 07/23/17 Range/Units 04:55 Sodium 138 (137-145) mmol/L Potassium 4.4 (3.6-5.0) mmol/L Chloride 99.4 (98-107) mmol/L Carbon Dioxide 19 L (22-30) mmol/L BUN 99 H (9-20) mg/dL Creatinine 1.6 H (0.8-1.5) mg/dL Glucose 84 (75-100) mg/dL Calcium 8.1 L (8.4-10.2) mg/dL AST 36 (5-40) units/L ALT 16 (7-56) units/L Alkaline Phosphatase 167 H (35-129) units/L Total Protein 8.2 (6.3-8.2) g/dL Albumin 2.2 L (3.9-5) g/dL - Imaging and Cardiology EKG: image reviewed Echo: report reviewed (06/2017: EF 20%, severe MR, severe TR, moderate pericardial effusion ) - Telemetry EKG Rhythm: Atrial Fibrillation
[2017-07-24] MEDS: PROVENTIL IH PRN (01:40)
[2017-07-24] MEDS ORDERED: CEPHULAC PR ONE ×2 (02:16)
[2017-07-24 05:34] LABS: Hematocrit 28.7 % (35.5-45.6); Mean Corpuscular HGB Conc 35 % (32-34); Mean Corpuscular Hemoglobin 32 pg (28-32); Mean Corpuscular Volume 91 fl (84-94); Platelet Count 100 K/mm3 (140-440); Red Blood Count 3.14 M/mm3 (3.65-5.03); Red Cell Distribution Width 18.8 % (13.2-15.2)
[2017-07-24 05:37] LABS: BUN/Creatinine Ratio 64.11; Chloride 99.2 mmol/L (98-107); Potassium 3.9 mmol/L (3.6-5.0)
--- NOTE | 2017-07-24 05:42 | Progress Note ---
Assessment and Plan - Patient Problems (1) KENNA (acute kidney injury) Current Visit: Yes Status: Acute Plan to address problem: Acute kidney injury in the setting of hypotension, CHF and advanced Cirrhosis. Suspected Hepato-renal syndrome. Creatinine appears to be stable. Renal prognosis is guarded. (2) Hyperkalemia Current Visit: Yes Status: Acute Plan to address problem: Improved. Monitor potassium level. (3) Metabolic acidosis Current Visit: Yes Status: Acute Plan to address problem: Continue Sodium bicarbonate. (4) Hypotension Current Visit: Yes Status: Acute Qualifiers: Hypotension type: H Trimester: T Plan to address problem: Monitor BP. On Midodrine. (5) CHF (congestive heart failure) Current Visit: Yes Status: Chronic Qualifiers: Congestive heart failure type: C Congestive heart failure chronicity: C Plan to address problem: Followed by Cards. (6) Jaundice Current Visit: Yes Status: Acute Subjective Date of service: 07/24/17 Principal diagnosis: Elevated BR, Acute on chronic SHF, CMP, Pericardial effusion, Perm Afib Interval history: Patient is non-verbal. Objective - Vital Signs Vital signs: Vital Signs - 12hr 07/23/17 07/23/17 07/23/17 20:18 21:19 23:23 Temperature 98.3 F 98.3 F Pulse Rate 68 53 L 73 Pulse Rate [ Anterior Bilateral Throughout] Respiratory 53 H 20 Rate Respiratory Rate [Anterior Bilateral Throughout] Blood Pressure 93/67 Blood Pressure 93/67 [Left] O2 Sat by Pulse 97 97 Oximetry 07/24/17 07/24/17 07/24/17 01:17 01:40 01:50 Temperature 98.4 F Pulse Rate 75 Pulse Rate [ 76 76 Anterior Bilateral Throughout] Respiratory 18 Rate Respiratory 20 20 Rate [Anterior Bilateral Throughout] Blood Pressure Blood Pressure 105/58 [Left] O2 Sat by Pulse 100 Oximetry - General Appearance General appearance: well-developed, well-nourished, appears stated age, obese, other (no distress) EENT: ATNC Neck: supple Respiratory: Present: Clear to Ascultation Cardiology: regular, S1S2, no murmurs Gastrointestinal: normoactive bowel sounds, no tenderness Integumentary: no rash Neurologic: aphasia, other (arousable, barely able to move extremities) Musculoskeletal: other (1+ edema of both LEs noted) - Lab 07/24/17 04:49 07/24/17 04:49 Most recent lab results Calcium 8.0 mg/dL (8.4-10.2) L 07/24/17 04:49
[2017-07-24 06:23] LABS: Basophils % (Manual) 0 % (0.0-1.8); Blastocytes % (Manual) 0 %
[2017-07-24 06:24] LABS: Diff Status Complete; Hypochromasia 1+; Platelet Estimate Consistent w Auto; Target Cells 1+
[2017-07-24] MEDS: CEPHULAC PO SCH ×4 (06:30→20:44)
[2017-07-24] MEDS ORDERED: DOBUTREX DRIP 500MG/D5W 250ML 500 MG/250 ML BAG IV ONE (09:41)
[2017-07-24] MEDS ORDERED: NACL 0.9% 250ML 250 ML IV ONE (09:57)
--- NOTE | 2017-07-24 10:29 | Gastroenterology Progress Note ---
Assessment and Plan - Patient Problems (1) Coumadin toxicity Current Visit: Yes Status: Acute Qualifiers: Encounter type: E Injury intent: I (2) Elevated BUN Current Visit: Yes Status: Acute (3) Jaundice Current Visit: Yes Status: Acute (4) Cirrhosis Current Visit: Yes Status: Acute Qualifiers: Hepatic cirrhosis type: H Ascites presence: A Plan to address problem: Likely endstage cirrhosis. Suspect cardiac cirrhosis superimposed on HCV. Prognosis seems poor and this may be hepatorenal syndrome. Supportive care will be continued in absence of AND status. (5) CHF (congestive heart failure) Current Visit: Yes Status: Chronic Qualifiers: Congestive heart failure type: C Congestive heart failure chronicity: C Subjective Date of service: 07/24/17 Principal diagnosis: liver failure, HCV, cardiac cirrhosis Interval history: No complaints, but minimal communication Objective - Constitutional Vitals: Temp Pulse Resp BP Pulse Ox 98.3 F 51 L 22 89/56 98 07/24/17 10:00 07/24/17 10:00 07/24/17 10:00 07/24/17 10:00 07/24/17 10:00 General appearance: mild distress - EENT Eyes: PERRL, scleral icterus - Respiratory Respiratory effort: normal Respiratory: bilateral: CTA - Cardiovascular Rhythm: regular - Gastrointestinal General gastrointestinal: Present: soft, non-tender, non-distended, normal bowel sounds - Neurologic Neurological: strength equal bilaterally, generalized weakness, other (Lethargic , follows simple commands) - Psychiatric Psychiatric: cooperative - Labs CBC & Chem 7: 07/24/17 04:49 07/24/17 04:49 Labs: Laboratory Results - last 24 hr 07/24/17 07/24/17 04:49 04:49 WBC 16.0 H RBC 3.14 L Hgb 10.0 L Hct 28.7 L MCV 91 MCH 32 MCHC 35 H RDW 18.8 H Plt Count 100 L Add Manual Diff Complete Total Counted 100 Seg Neutrophils % Fish Cutter Seg Neuts % (Manual) 83.0 H Band Neutrophils % 11.0 Lymphocytes % (Manual) 2.0 L Reactive Lymphs % (Man) 0 Monocytes % (Manual) 2.0 Eosinophils % (Manual) 2.0 Basophils % (Manual) 0 Metamyelocytes % 0 Myelocytes % 0 Promyelocytes % 0 Blast Cells % 0 Nucleated RBC % 1.0 H Seg Neutrophils # Man 13.3 H Band Neutrophils # 1.8 Lymphocytes # (Manual) 0.3 L Abs React Lymphs (Man) 0.0 Monocytes # (Manual) 0.3 Eosinophils # (Manual) 0.3 Basophils # (Manual) 0.0 Metamyelocytes # 0.0 Myelocytes # 0.0 Promyelocytes # 0.0 Blast Cells # 0.0 WBC Morphology Not Reportable Hypersegmented Neuts Not Reportable Hyposegmented Neuts Not Reportable Hypogranular Neuts Not Reportable Smudge Cells Not Reportable Toxic Granulation Not Reportable Toxic Vacuolation Not Reportable Dohle Bodies Not Reportable Pelger-Huet Anomaly Not Reportable Rosalio Rods Not Reportable Platelet Estimate Consistent w auto Clumped Platelets Not Reportable Plt Clumps, EDTA Not Reportable Large Platelets Not Reportable Giant Platelets Not Reportable Platelet Satelliting Not Reportable Plt Morphology Comment Not Reportable RBC Morphology Not Reportable Dimorphic RBCs Not Reportable Polychromasia Not Reportable Hypochromasia 1+ Poikilocytosis Not Reportable Anisocytosis Not Reportable Microcytosis Not Reportable Macrocytosis Not Reportable Spherocytes Not Reportable Pappenheimer Bodies Not Reportable Sickle Cells Not Reportable Target Cells 1+ Tear Drop Cells Not Reportable Ovalocytes Not Reportable Helmet Cells Not Reportable [place] Bodies Not Reportable [place] Rings Not Reportable David Cells Not Reportable Bite Cells Not Reportable Crenated Cell Not Reportable Elliptocytes Not Reportable Acanthocytes (Spur) Not Reportable Rouleaux Not Reportable Hemoglobin C Crystals Not Reportable Schistocytes Not Reportable Malaria parasites Not Reportable Osmin Bodies Not Reportable Hem Pathologist Commnt No Sodium 139 Potassium 3.9 Chloride 99.2 Carbon Dioxide 21 L Anion Gap 23 BUN 109 H Creatinine 1.7 H Estimated GFR 51 BUN/Creatinine Ratio 64.11 Glucose 72 L Calcium 8.0 L
[2017-07-24] MEDS: SODIUM BICARBONATE PO SCH ×3 (12:35→23:57)
[2017-07-24] MEDS: PEPCID PO SCH ×2 (12:35→23:04)
[2017-07-24] MEDS: PROAMATINE PO SCH ×3 (12:35→20:37)
[2017-07-24] MEDS: XIFAXAN PO SCH ×2 (12:36→23:04)
[2017-07-24] MEDS: LASIX IV SCH ×3 (12:37→20:36)
--- NOTE | 2017-07-24 13:01 | Progress Note ---
Assessment and Plan Poor prognosis. Trial of Dobutrex infusion. - Patient Problems (1) Acute on chronic systolic heart failure Current Visit: Yes Status: Acute (2) Cardiomyopathy Current Visit: Yes Status: Chronic Qualifiers: Cardiomyopathy type: C (3) Hyperbilirubinemia Current Visit: Yes Status: Acute (4) Pericardial effusion Current Visit: Yes Status: Acute (5) Mitral regurgitation Current Visit: Yes Status: Chronic Qualifiers: Cardiac valve disease etiology: C (6) Jaundice Current Visit: Yes Status: Acute (7) Acute kidney injury Current Visit: Yes Status: Acute (8) Supratherapeutic INR Current Visit: Yes Status: Acute (9) Right ventricular dysfunction Current Visit: Yes Status: Chronic (10) Permanent atrial fibrillation Current Visit: Yes Status: Chronic (11) AICD (automatic cardioverter/defibrillator) present Current Visit: Yes Status: Chronic (12) Tricuspid regurgitation Current Visit: Yes Status: Chronic Qualifiers: Cardiac valve disease etiology: C (13) Cirrhosis Current Visit: Yes Status: Acute Qualifiers: Hepatic cirrhosis type: H Ascites presence: A Subjective Date of service: 07/24/17 Principal diagnosis: Acute on chronic SHF, CMP, Pericardial effusion, Liver cirrhosis, Perm Afib Interval history: He complains about diarrhea. He is on lactulose however. Objective Vital Signs Temp Pulse Pulse Pulse Resp Resp BP 07/24/17 10:36 93/56 07/24/17 10:35 98.3 F 51 L 07/24/17 10:00 98.3 F 92 H 91 H 20 07/24/17 04:23 97.8 F 60 22 92/55 07/24/17 01:50 76 20 07/24/17 01:40 76 20 07/24/17 01:17 98.4 F 75 18 07/24/17 00:12 67 07/23/17 23:23 73 07/23/17 21:19 98.3 F 53 L 20 07/23/17 20:18 98.3 F 68 53 H 93/67 07/23/17 15:54 98.6 F 56 L 20 95/60 BP Pulse Ox 07/24/17 10:36 07/24/17 10:35 79/56 07/24/17 10:00 89/56 95 07/24/17 04:23 97 07/24/17 01:50 07/24/17 01:40 07/24/17 01:17 105/58 100 07/24/17 00:12 99 07/23/17 23:23 07/23/17 21:19 93/67 97 07/23/17 20:18 97 07/23/17 15:54 96 - Physical Examination General: Other (appears uncomfortable) HEENT: Positive: EOMI, Normocephaly, Mucus Membranes Moist, Other (icteric sclera) Neck: Positive: neck supple, trachea midline, JVD/HJR (elevated) Cardiac: Positive: irregularly irregular, S1/S2 Lungs: Positive: Rales (at the bases) Neuro: Positive: Other (awake, but lethargic) Abdomen: Positive: Soft, Active Bowel Sounds. Negative: Tender Skin: Positive: Other (BLE stasis dermatitis) Musculoskeletal: Normal Range of Motion Extremities: Present: +3 Edema (BLEs, chronic skin changes) - Labs and Meds CBC 07/24/17 Range/Units 04:49 WBC 16.0 H (4.5-11.0) K/mm3 RBC 3.14 L (3.65-5.03) M/mm3 Hgb 10.0 L (11.8-15.2) gm/dl Hct 28.7 L (35.5-45.6) % Plt Count 100 L (140-440) K/mm3 Comprehensive Metabolic Panel 07/24/17 Range/Units 04:49 Sodium 139 (137-145) mmol/L Potassium 3.9 (3.6-5.0) mmol/L Chloride 99.2 (98-107) mmol/L Carbon Dioxide 21 L (22-30) mmol/L BUN 109 H (9-20) mg/dL Creatinine 1.7 H (0.8-1.5) mg/dL Glucose 72 L (75-100) mg/dL Calcium 8.0 L (8.4-10.2) mg/dL - Imaging and Cardiology EKG: image reviewed Echo: report reviewed (06/2017: EF 20%, severe MR, severe TR, moderate pericardial effusion ) - Telemetry EKG Rhythm: Atrial Fibrillation
--- NOTE | 2017-07-24 14:28 | Progress Note ---
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 fib on anticoagulation - Chronic Coumadin because of Coumadin toxicity/liver failure Coumadin toxicity Acute on Chronic combined heart failure/Acute kidney injury Cardio-renal syndrome VS Hepatorenal syndrome - I give him Lasix one-time dose - We will follow - Echo showed EF of 20-25%, with diastolic dysfunction - ICD interrogation - Nephrology and cardiology consult appreciated Hyperbilirubinemia with hepatomegaly secondary to acute liver failure -GI consult appreciated - Ultrasound showed hepatomegaly Hypotension - was given bolus of fluid and if no improvement will transfer to ICU for presser treatment Leukocytois - infectious work up Venous stasis ulcer - Supportive care DVT prophylaxis - Mechanical Disposition - continue inpatient care Prognosis - Guarded History Interval history: Patient was seen and evaluated this morning, patient has confusion, and difficulty of breathing, his BP was dropping. I called the manager banking at the [facility] system and explained the patient's condition and wants him to continued to be in full code until he gets information from the family. Hospitalist Physical - Physical exam Narrative exam: Patient is in mild cardiopulmonary distress. The patient is obese. Vital signs as documented. Head exam is unremarkable. + scleral icterus . Neck is without jugular venous distension, thyromegaly, or carotid bruits. Lungs crackles and decreased air entry on the lower lung zone. Cardiac exam reveals irregularly irregular rhythm. Abdominal exam reveals normal bowel sounds, no masses. Extremities mild bilateral leg swelling with venous stasis. 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 - Constitutional Vitals: Temp Pulse Resp BP Pulse Ox 98.3 F 51 L 20 93/56 95 07/24/17 10:35 07/24/17 10:35 07/24/17 10:00 07/24/17 10:36 07/24/17 10:00 General appearance: Present: mild distress Results - Labs CBC & Chem 7: 07/24/17 04:49 07/24/17 04:49 Labs: Laboratory Last Values WBC 16.0 K/mm3 (4.5-11.0) H 07/24/17 04:49 RBC 3.14 M/mm3 (3.65-5.03) L 07/24/17 04:49 Hgb 10.0 gm/dl (11.8-15.2) L 07/24/17 04:49 Hct 28.7 % (35.5-45.6) L 07/24/17 04:49 MCV 91 fl (84-94) 07/24/17 04:49 MCH 32 pg (28-32) 07/24/17 04:49 MCHC 35 % (32-34) H 07/24/17 04:49 RDW 18.8 % (13.2-15.2) H 07/24/17 04:49 Plt Count 100 K/mm3 (140-440) L 07/24/17 04:49 Lymph % (Auto) Commercial Analyst 07/21/17 05:50 Larue % (Auto) Commercial Analyst 07/21/17 05:50 Eos % (Auto) Commercial Analyst 07/21/17 05:50 Baso % (Auto) Commercial Analyst 07/21/17 05:50 Lymph # Commercial Analyst 07/21/17 05:50 Larue # Commercial Analyst 07/21/17 05:50 Eos # Commercial Analyst 07/21/17 05:50 Baso # Commercial Analyst 07/21/17 05:50 Add Manual Diff Complete 07/24/17 04:49 Total Counted 100 07/24/17 04:49 Seg Neutrophils % Commercial Analyst 07/24/17 04:49 Seg Neuts % (Manual) 83.0 % (40.0-70.0) H 07/24/17 04:49 Band Neutrophils % 11.0 % 07/24/17 04:49 Lymphocytes % (Manual) 2.0 % (13.4-35.0) L 07/24/17 04:49 Reactive Lymphs % (Man) 0 % 07/24/17 04:49 Monocytes % (Manual) 2.0 % (0.0-7.3) 07/24/17 04:49 Eosinophils % (Manual) 2.0 % (0.0-4.3) 07/24/17 04:49 Basophils % (Manual) 0 % (0.0-1.8) 07/24/17 04:49 Metamyelocytes % 0 % 07/24/17 04:49 Myelocytes % 0 % 07/24/17 04:49 Promyelocytes % 0 % 07/24/17 04:49 Blast Cells % 0 % 07/24/17 04:49 Nucleated RBC % 1.0 % (0.0-0.9) H 07/24/17 04:49 Seg Neutrophils # Commercial Analyst 07/21/17 05:50 Seg Neutrophils # Man 13.3 K/mm3 (1.8-7.7) H 07/24/17 04:49 Band Neutrophils # 1.8 K/mm3 07/24/17 04:49 Lymphocytes # (Manual) 0.3 K/mm3 (1.2-5.4) L 07/24/17 04:49 Abs React Lymphs (Man) 0.0 K/mm3 07/24/17 04:49 Monocytes # (Manual) 0.3 K/mm3 (0.0-0.8) 07/24/17 04:49 Eosinophils # (Manual) 0.3 K/mm3 (0.0-0.4) 07/24/17 04:49 Basophils # (Manual) 0.0 K/mm3 (0.0-0.1) 07/24/17 04:49 Metamyelocytes # 0.0 K/mm3 07/24/17 04:49 Myelocytes # 0.0 K/mm3 07/24/17 04:49 Promyelocytes # 0.0 K/mm3 07/24/17 04:49 Blast Cells # 0.0 K/mm3 07/24/17 04:49 Pathologist Review 07/19/17 12:14 WBC Morphology Not Reportable 07/24/17 04:49 Hypersegmented Neuts Not Reportable 07/24/17 04:49 Hyposegmented Neuts Not Reportable 07/24/17 04:49 Hypogranular Neuts Not Reportable 07/24/17 04:49 Smudge Cells Not Reportable 07/24/17 04:49 Toxic Granulation Not Reportable 07/24/17 04:49 Toxic Vacuolation Not Reportable 07/24/17 04:49 Dohle Bodies Not Reportable 07/24/17 04:49 Pelger-Huet Anomaly Not Reportable 07/24/17 04:49 Rosalio Rods Not Reportable 07/24/17 04:49 Platelet Estimate Consistent w auto 07/24/17 04:49 Clumped Platelets Not Reportable 07/24/17 04:49 Plt Clumps, EDTA Not Reportable 07/24/17 04:49 Large Platelets Not Reportable 07/24/17 04:49 Giant Platelets Not Reportable 07/24/17 04:49 Platelet Satelliting Not Reportable 07/24/17 04:49 Plt Morphology Comment Not Reportable 07/24/17 04:49 RBC Morphology Not Reportable 07/24/17 04:49 Dimorphic RBCs Not Reportable 07/24/17 04:49 Polychromasia Not Reportable 07/24/17 04:49 Hypochromasia 1+ 07/24/17 04:49 Poikilocytosis Not Reportable 07/24/17 04:49 Anisocytosis Not Reportable 07/24/17 04:49 Microcytosis Not Reportable 07/24/17 04:49 Macrocytosis Not Reportable 07/24/17 04:49 Spherocytes Not Reportable 07/24/17 04:49 Pappenheimer Bodies Not Reportable 07/24/17 04:49 Sickle Cells Not Reportable 07/24/17 04:49 Target Cells 1+ 07/24/17 04:49 Tear Drop Cells Not Reportable 07/24/17 04:49 Ovalocytes Not Reportable 07/24/17 04:49 Helmet Cells Not Reportable 07/24/17 04:49 [place] Bodies Not Reportable 07/24/17 04:49 Arco Rings Not Reportable 07/24/17 04:49 David Cells Not Reportable 07/24/17 04:49 Bite Cells Not Reportable 07/24/17 04:49 Crenated Cell Not Reportable 07/24/17 04:49 Elliptocytes Not Reportable 07/24/17 04:49 Acanthocytes (Spur) Not Reportable 07/24/17 04:49 Rouleaux Not Reportable 07/24/17 04:49 Hemoglobin C Crystals Not Reportable 07/24/17 04:49 Schistocytes Not Reportable 07/24/17 04:49 Malaria parasites Not Reportable 07/24/17 04:49 Percent Retic 1.59 % (0.78-2.58) 07/21/17 10:23 Osmin Bodies Not Reportable 07/24/17 04:49 Haptoglobin 157 mg/dL (43-212) 07/21/17 10:23 Hem Pathologist Commnt No 07/24/17 04:49 PT 40.9 Sec. (12.2-14.9) H 07/23/17 07:12 INR 3.97 (0.87-1.13) H 07/23/17 07:12 APTT 66.6 Sec. (24.2-36.6) H* 07/23/17 07:12 Sodium 139 mmol/L (137-145) 07/24/17 04:49 Potassium 3.9 mmol/L (3.6-5.0) 07/24/17 04:49 Chloride 99.2 mmol/L (98-107) 07/24/17 04:49 Carbon Dioxide 21 mmol/L (22-30) L 07/24/17 04:49 Anion Gap 23 mmol/L 07/24/17 04:49 BUN 109 mg/dL (9-20) H 07/24/17 04:49 Creatinine 1.7 mg/dL (0.8-1.5) H 07/24/17 04:49 Estimated GFR 51 ml/min 07/24/17 04:49 BUN/Creatinine Ratio 64.11 % 07/24/17 04:49 Glucose 72 mg/dL (75-100) L 07/24/17 04:49 Calcium 8.0 mg/dL (8.4-10.2) L 07/24/17 04:49 Total Bilirubin 16.00 mg/dL (0.1-1.2) H 07/23/17 04:55 Direct Bilirubin 7.4 mg/dL (0-0.2) H 07/21/17 05:50 Indirect Bilirubin 3.5 mg/dL 07/21/17 05:50 AST 36 units/L (5-40) 07/23/17 04:55 ALT 16 units/L (7-56) 07/23/17 04:55 Alkaline Phosphatase 167 units/L (35-129) H 07/23/17 04:55 Ammonia 104.0 umol/L (25-60) H 07/21/17 17:10 Lactate Dehydrogenase 164 units/L (91-180) 07/21/17 10:23 Total Creatine Kinase 64 units/L (55-170) 07/19/17 12:14 CK-MB (CK-2) 2.3 ng/mL (0.0-4.0) 07/19/17 12:14 CK-MB (CK-2) Rel Index 3.5 (0-4) 07/19/17 12:14 Troponin T 0.014 ng/mL (0.00-0.029) 07/19/17 12:14 NT-Pro-B Natriuret Pep 7153 pg/mL (0-900) H 07/19/17 14:24 Total Protein 8.2 g/dL (6.3-8.2) 07/23/17 04:55 Albumin 2.2 g/dL (3.9-5) L 07/23/17 04:55 Albumin/Globulin Ratio 0.4 % 07/23/17 04:55 Triglycerides 80 mg/dL (2-149) 07/19/17 14:38 Cholesterol 78 mg/dL (50-199) 07/19/17 14:38 LDL Cholesterol Direct 56 mg/dL (50-130) 07/19/17 14:38 HDL Cholesterol 6 mg/dL (40-59) L 07/19/17 14:38 Cholesterol/HDL Ratio 13.00 % 07/19/17 14:38 Hepatitis A IgM Ab Non-reactive (NonReactive) 07/21/17 05:50 Hep Bs Antigen Non-reactive (Negative) 07/21/17 05:50 Hep B Core IgM Ab Non-reactive (NonReactive) 07/21/17 05:50 Hepatitis C Antibody Non-reactive (NonReactive) 07/21/17 05:50 Blood Type O NEGATIVE 07/19/17 12:14 Antibody Screen Negative 07/19/17 12:14
[2017-07-25] MEDS ORDERED: DOBUTREX DRIP 500MG/D5W 250ML 500 MG/250 ML BAG IV SCH (02:00)
[2017-07-25] MEDS: CEPHULAC PO SCH ×3 (02:10→11:54)
[2017-07-25 02:51] LABS: Bilirubin,Urine SM (Negative); Blood,Urine LG (Negative); Ketones,Urine NEG (Negative); Leukocyte Esterase,Urine MOD (Negative); Nitrite,Urine NEG (Negative)
[2017-07-25 06:12] LABS: Hematocrit 26.1 % (35.5-45.6); Hemoglobin 8.9 gm/dl (11.8-15.2); Mean Corpuscular HGB Conc 34 % (32-34); Mean Corpuscular Hemoglobin 31 pg (28-32); Mean Corpuscular Volume 91 fl (84-94); Red Blood Count 2.87 M/mm3 (3.65-5.03); Red Cell Distribution Width 18.4 % (13.2-15.2); White Blood Count 20.1 K/mm3 (4.5-11.0)
[2017-07-25 06:19] LABS: Albumin 2.1 g/dL (3.9-5); Albumin/Globulin Ratio 0.4 %; Bilirubin,Total 16.1 mg/dL (0.1-1.2); Calcium 7.7 mg/dL (8.4-10.2); Chloride 98.8 mmol/L (98-107); Total Protein 7.4 g/dL (6.3-8.2)
[2017-07-25 06:28] LABS: BUN/Creatinine Ratio 46.92
[2017-07-25 06:33] LABS: Platelet Count 55 K/mm3 (140-440)
[2017-07-25 06:34] LABS: INR 10.45 (0.87-1.13)
[2017-07-25 08:05] LABS: Basophils % (Manual) 0 % (0.0-1.8); Blastocytes % (Manual) 0 %; Eosinophils % (Manual) 0 % (0.0-4.3); Hypochromasia 1+
[2017-07-25 08:06] LABS: Diff Status Complete; Target Cells 2+
[2017-07-25 08:07] LABS: Large Platelets Rare; Platelet Estimate Appears Decreased
--- NOTE | 2017-07-25 08:11 | Progress Note ---
Assessment and Plan - Patient Problems (1) KENNA (acute kidney injury) Current Visit: Yes Status: Acute Plan to address problem: Acute kidney injury in the setting of hypotension, CHF and advanced Cirrhosis. Suspected Hepato-renal syndrome. Renal function is declining. Renal prognosis is guarded. No family member available at this time. (2) Hyperkalemia Current Visit: Yes Status: Acute Plan to address problem: Improved. Monitor potassium level. (3) Metabolic acidosis Current Visit: Yes Status: Acute Plan to address problem: Continue Sodium bicarbonate. (4) Hypotension Current Visit: Yes Status: Acute Qualifiers: Hypotension type: H Trimester: T Plan to address problem: Monitor BP. Increase Midodrine. (5) CHF (congestive heart failure) Current Visit: Yes Status: Chronic Qualifiers: Congestive heart failure type: C Congestive heart failure chronicity: C (6) Jaundice Current Visit: Yes Status: Acute Subjective Date of service: 07/25/17 Principal diagnosis: Elevated BR, Acute on chronic SHF, CMP, Pericardial effusion, Perm Afib Interval history: Patient is non-verbal. Objective - Vital Signs Vital signs: Vital Signs - 12hr 07/24/17 07/25/17 07/25/17 23:41 00:52 01:42 Temperature 98.8 F Pulse Rate 68 Respiratory 20 24 Rate Blood Pressure 89/51 94/53 Blood Pressure 93/54 [Left] O2 Sat by Pulse 100 100 Oximetry 07/25/17 04:07 Temperature 98.5 F Pulse Rate 68 Respiratory 18 Rate Blood Pressure 98/60 Blood Pressure [Left] O2 Sat by Pulse 97 Oximetry - General Appearance General appearance: well-developed, well-nourished, appears stated age, obese, other (no distress) EENT: ATNC, PERRL, hearing intact Neck: JVD, supple Respiratory: Present: Clear to Ascultation Cardiology: regular, S1S2, no murmurs Gastrointestinal: normoactive bowel sounds, no tenderness Integumentary: no rash Neurologic: aphasic, other (barely able to move extremities) Musculoskeletal: other (1+ edema of both LEs noted) Psychiatric: cooperative - Lab 07/25/17 04:51 07/25/17 04:51 Most recent lab results Calcium 7.7 mg/dL (8.4-10.2) L 07/25/17 04:51 Urine Creatinine 93.0 mg/dL (0.1-20.0) H 07/25/17 02:23 Urine Sodium 10 mEq/L 07/25/17 02:23
--- NOTE | 2017-07-25 08:20 | XRay Report ---
AP CHEST: HISTORY: Short of breath Minimal improvement in severe cardiomegaly and moderate pulmonary venous congestion is demonstrated since 07/22/17. Single lead pacemaker device is unchanged. No evidence for pneumonia, CHF or pneumothorax. The bony structures are grossly intact. IMPRESSION: Cardiomegaly and pulmonary venous congestion, slightly improved since the exam 2 days ago.
--- NOTE | 2017-07-25 09:51 | Progress Note ---
Assessment and Plan Hepatic encephalopathy due to cirrhosis - likely cardiogenic cause - Ammonia level is high and patient started with lactulose and xifaxan - Alpha-fetoprotein is pending - CT head negative for acute intracranial process - GI consult appreciated A. fib on anticoagulation - hold Coumadin because of Coumadin toxicity/liver failure Coagulopathy - INR >10 today - transfuse 2 units FFP Acute on Chronic combined heart failure - Echo showed EF of 20-25%, with diastolic dysfunction - ICD interrogation - on dobutamin drip Cardio-renal syndrome VS Hepatorenal syndrome - nephrology following - Cr trended up today Hyperbilirubinemia with hepatomegaly secondary to acute liver failure -GI consult appreciated - Ultrasound showed hepatomegaly Septic shock - was given bolus of fluid and will transfer to ICU as BP still low - start on levophed Sepsis with bacteremia - infectious work up - start on vancomycin Venous stasis ulcer - Supportive care DVT prophylaxis - Mechanical Disposition - continue inpatient care Prognosis - Guarded The high probability of a clinically significant, sudden or life threatening deterioration of the system(s) required my full and direct attention, intervention and personal management. The aggregate critical care time was [35] minutes. This time is in addition to time spent performing reported procedures but includes the following: [x] Data Review and interpretation [x] Patient assessment and monitoring of vital signs [x] Documentation [x] Medication orders and management Subjective Date of service: 07/25/17 Principal diagnosis: Elevated BR, Acute on chronic SHF, CMP, Pericardial effusion, Perm Afib Interval history: Pt seen and examined His Bp continue to drop Blood cx came positive for gm Positive cocci patient much alert and oriented today he states that he does not wish to be resuscitated and states specifically that he wants to be "DNR" Objective - Constitutional Vitals: Vital Signs - 12hr 07/24/17 07/25/17 07/25/17 23:41 00:52 01:42 Temperature 98.8 F Pulse Rate 68 Respiratory 20 24 Rate Blood Pressure 89/51 94/53 Blood Pressure 93/54 [Left] O2 Sat by Pulse 100 100 Oximetry 07/25/17 07/25/17 04:07 08:31 Temperature 98.5 F 97.1 F L Pulse Rate 68 68 Respiratory 18 24 Rate Blood Pressure 98/60 Blood Pressure 96/58 [Left] O2 Sat by Pulse 97 Oximetry General appearance: Present: mild distress - EENT Eyes: PERRL, EOM intact, scleral icterus ENT: hearing intact, other (dry mucosa) Ears: bilateral: normal - Neck Neck: supple, normal ROM - Respiratory Respiratory effort: labored Respiratory: bilateral: CTA - Cardiovascular Heart Sounds: Present: S1 & S2 (tachycardic). Absent: gallop, rub Extremities: No edema, normal color, abnormal (faint pulse) - Gastrointestinal General gastrointestinal: Present: soft, non-tender, normal bowel sounds, hepatomegaly - Integumentary Integumentary: clear, dry, jaundice, no rash - Musculoskeletal Musculoskeletal: generalized weakness - Neurologic Neurologic: moves all extremities - Psychiatric Psychiatric: appropriate mood/affect, cooperative - Labs CBC & Chem 7: 07/25/17 04:51 07/25/17 04:51 Labs: Abnormal lab results 07/25/17 07/25/17 07/25/17 Range/Units 02:20 02:23 04:51 WBC 20.1 H (4.5-11.0) K/mm3 RBC 2.87 L (3.65-5.03) M/mm3 Hgb 8.9 L (11.8-15.2) gm/dl Hct 26.1 L (35.5-45.6) % RDW 18.4 H (13.2-15.2) % Plt Count 55 L (140-440) K/mm3 Seg Neuts % (Manual) 97.0 H (40.0-70.0) % Lymphocytes % (Manual) 0 L (13.4-35.0) % Seg Neutrophils # Man 19.5 H (1.8-7.7) K/mm3 Lymphocytes # (Manual) 0.0 L (1.2-5.4) K/mm3 PT (12.2-14.9) Sec. INR (0.87-1.13) APTT (24.2-36.6) Sec. Carbon Dioxide (22-30) mmol/L BUN (9-20) mg/dL Creatinine (0.8-1.5) mg/dL Calcium (8.4-10.2) mg/dL Total Bilirubin (0.1-1.2) mg/dL Alkaline Phosphatase (35-129) units/L Ammonia (25-60) umol/L Albumin (3.9-5) g/dL Urine WBC (Auto) 82.0 H (0.0-6.0) /HPF Urine Creatinine 93.0 H (0.1-20.0) mg/dL 07/25/17 07/25/17 07/25/17 Range/Units 04:51 04:51 04:51 WBC (4.5-11.0) K/mm3 RBC (3.65-5.03) M/mm3 Hgb (11.8-15.2) gm/dl Hct (35.5-45.6) % RDW (13.2-15.2) % Plt Count (140-440) K/mm3 Seg Neuts % (Manual) (40.0-70.0) % Lymphocytes % (Manual) (13.4-35.0) % Seg Neutrophils # Man (1.8-7.7) K/mm3 Lymphocytes # (Manual) (1.2-5.4) K/mm3 PT 88.2 H (12.2-14.9) Sec. INR 10.45 H* (0.87-1.13) APTT 82.0 H* (24.2-36.6) Sec. Carbon Dioxide 19 L (22-30) mmol/L BUN 122 H (9-20) mg/dL Creatinine 2.6 H D (0.8-1.5) mg/dL Calcium 7.7 L (8.4-10.2) mg/dL Total Bilirubin 16.10 H (0.1-1.2) mg/dL Alkaline Phosphatase 174 H (35-129) units/L Ammonia 71.0 H (25-60) umol/L Albumin 2.1 L (3.9-5) g/dL Urine WBC (Auto) (0.0-6.0) /HPF Urine Creatinine (0.1-20.0) mg/dL - Imaging and cardiology CT Scan - head: report reviewed US - abdomen: report reviewed
[2017-07-25] MEDS: PEPCID PO SCH ×2 (10:31→22:49)
[2017-07-25] MEDS: SODIUM BICARBONATE PO SCH (10:31)
[2017-07-25] MEDS: XIFAXAN PO SCH ×2 (10:32→22:49)
[2017-07-25] MEDS: PROAMATINE PO SCH (10:33)
[2017-07-25] MEDS ORDERED: NACL 0.9% 1000 ML 1,000 ML IV SCH (11:00)
[2017-07-25] MEDS ORDERED: NACL 0.9% 500 ML 500 ML IV ONE (11:09)
[2017-07-25 11:12] LABS: INR 12.47 (0.87-1.13)
[2017-07-25] MEDS ORDERED: VANCOMYCIN 2,000 MG in NACL 0.9% 500 ML 500 ML IV ONE ×2 (11:45→12:00)
[2017-07-25] MEDS: D5NS 1,000 ML IV SCH (11:55)
[2017-07-25] MEDS ORDERED: VANCOMYCIN/NS 1 GM/250 ML 1 GM/250 ML BAG IV SCH (12:00)
--- NOTE | 2017-07-25 13:18 | Progress Note ---
Assessment and Plan Assessment: Supratherapeutic INR - INR 6.7 at admission-->currently 12.47 with no s/s overt bleeding. Atrial fibrillation with CVR Cardiomyopathy EF 20% AICD in situ H/o HTN - with borderline hypotension since admission. Anemia Hyperbilirubinemia / jaundice Hypocalcemia Hyponatremia Hypoalbuminemia Chronic venous insufficiency Plan: D/c dobutamine gtt as it does not appear to have improved pt's clinical state. Cont all other present cardiac management. Overall poor prognosis. When asked if pt would want CPR if necessary, pt nods his head "no". When asked if pt would want intubation and mechanical ventilation if necessary, pt nods his head "no". Custodial staff is attempting reach pt's NOK. Will defer code status adjustement per CM/primary team. D/w Dr. Wagoner. The patient has been seen in conjunction with Dr. Cordon who agrees with the assessment and plan of care. Subjective Date of service: 07/25/17 Principal diagnosis: Elevated BR, Acute on chronic SHF, CMP, Pericardial effusion, Perm Afib Interval history: Pt resting in bed, denies any current complaints. Is lethargic but is oriented. On dobutamine gtt. Objective Last Vital Signs Temp 97.1 F L 07/25/17 08:31 Pulse 68 07/25/17 08:31 Resp 24 07/25/17 08:31 BP 96/58 07/25/17 08:31 Pulse Ox 97 07/25/17 04:07 - Physical Examination General: Other (appears uncomfortable) HEENT: Positive: EOMI, Normocephaly, Mucus Membranes Moist, Other (icteric sclera) Neck: Positive: neck supple, trachea midline, JVD/HJR (elevated) Cardiac: Positive: irregularly irregular, S1/S2 Lungs: Positive: Decreased Breath Sounds Neuro: Positive: Other (awake, but lethargic) Abdomen: Positive: Soft, Active Bowel Sounds. Negative: Tender Skin: Positive: Other (BLE stasis dermatitis) Musculoskeletal: Normal Range of Motion Extremities: Present: +3 Edema (BLEs, chronic skin changes) - Labs and Meds Cardiac Enzymes 07/25/17 Range/Units 04:51 AST 36 (5-40) units/L Coagulation 07/25/17 07/25/17 Range/Units 04:51 10:26 PT 88.2 H 101.5 H (12.2-14.9) Sec. INR 10.45 H* 12.47 H* (0.87-1.13) APTT 82.0 H* (24.2-36.6) Sec. CBC 07/25/17 Range/Units 04:51 WBC 20.1 H (4.5-11.0) K/mm3 RBC 2.87 L (3.65-5.03) M/mm3 Hgb 8.9 L (11.8-15.2) gm/dl Hct 26.1 L (35.5-45.6) % Plt Count 55 L (140-440) K/mm3 Comprehensive Metabolic Panel 07/25/17 Range/Units 04:51 Sodium 137 (137-145) mmol/L Potassium 4.0 (3.6-5.0) mmol/L Chloride 98.8 (98-107) mmol/L Carbon Dioxide 19 L (22-30) mmol/L BUN 122 H (9-20) mg/dL Creatinine 2.6 H D (0.8-1.5) mg/dL Glucose 94 (75-100) mg/dL Calcium 7.7 L (8.4-10.2) mg/dL AST 36 (5-40) units/L ALT 14 (7-56) units/L Alkaline Phosphatase 174 H (35-129) units/L Total Protein 7.4 (6.3-8.2) g/dL Albumin 2.1 L (3.9-5) g/dL - Imaging and Cardiology EKG: image reviewed Echo: report reviewed (06/2017: EF 20%, severe MR, severe TR, moderate pericardial effusion ) - Telemetry EKG Rhythm: Atrial Fibrillation
[2017-07-25] MEDS: TYLENOL PO PRN (14:26)
[2017-07-25] MEDS: PROVENTIL IH PRN (15:38)
--- NOTE | 2017-07-25 16:13 | Gastroenterology Progress Note ---
Assessment and Plan 56 yo male with decompensated heart failure presenting with jaundice and supratherapeutic INR, with hospital course complicated by multi-organ failure. acute liver injury - suspected underlying cirrhosis likely cardiac in etiology, viral hep serologies negative. ammonia elevated, but awake and answering to questions appropriately w/o signs of overt encephalopathy. cont lactulose and xifaxin. no signs of overt bleeding. recommend vit K however given increasing INR levels. Sepsis - increasing wbc count, + UA/uti, further management per primary team KENNA -renal following, on midodrine and levophed for possible HRS, further management per nephrology Patient with poor prognosis, appears to understand severity of illness. Goals of care discussion per primary team. Supportive care as above for liver disease. Subjective Date of service: 07/25/17 Principal diagnosis: Elevated BR, Acute on chronic SHF, CMP, Pericardial effusion, Perm Afib Interval history: pt seen and examined. on face mask with labored respirations. nodding to questions appropriately. denies abd pain, no signs of bleeding. Objective - Exam Narrative Exam: Gen: mild distress with labored respirations, awake, appears oriented and nodding to "yes" and "no" appropriately CV: tachycardic, s1 and s2 Lungs: labored respirations, CTA anteriorly Abd: soft, nt, nd Ext: + edema - Constitutional Vitals: Temp Pulse Resp BP Pulse Ox 98.5 F 53 L 20 96/56 97 07/25/17 16:00 07/25/17 16:00 07/25/17 16:00 07/25/17 16:00 07/25/17 16:00 - Labs CBC & Chem 7: 07/25/17 04:51 07/25/17 04:51 Labs: Laboratory Results - last 24 hr 07/25/17 07/25/17 07/25/17 02:20 02:23 04:51 WBC 20.1 H RBC 2.87 L Hgb 8.9 L Hct 26.1 L MCV 91 MCH 31 MCHC 34 RDW 18.4 H Plt Count 55 L Add Manual Diff Complete Total Counted 100 Seg Neutrophils % Market Reporter Seg Neuts % (Manual) 97.0 H Band Neutrophils % 2.0 Lymphocytes % (Manual) 0 L Reactive Lymphs % (Man) 0 Monocytes % (Manual) 1.0 Eosinophils % (Manual) 0 Basophils % (Manual) 0 Metamyelocytes % 0 Myelocytes % 0 Promyelocytes % 0 Blast Cells % 0 Nucleated RBC % Not Reportable Seg Neutrophils # Man 19.5 H Band Neutrophils # 0.4 Lymphocytes # (Manual) 0.0 L Abs React Lymphs (Man) 0.0 Monocytes # (Manual) 0.2 Eosinophils # (Manual) 0.0 Basophils # (Manual) 0.0 Metamyelocytes # 0.0 Myelocytes # 0.0 Promyelocytes # 0.0 Blast Cells # 0.0 WBC Morphology Not Reportable Hypersegmented Neuts Not Reportable Hyposegmented Neuts Not Reportable Hypogranular Neuts Not Reportable Smudge Cells Not Reportable Toxic Granulation Not Reportable Toxic Vacuolation Not Reportable Dohle Bodies Not Reportable Pelger-Huet Anomaly Not Reportable Rosalio Rods Not Reportable Platelet Estimate Appears decreased Clumped Platelets Not Reportable Plt Clumps, EDTA Not Reportable Large Platelets Rare Giant Platelets Not Reportable Platelet Satelliting Not Reportable Plt Morphology Comment Not Reportable RBC Morphology Not Reportable Dimorphic RBCs Not Reportable Polychromasia Not Reportable Hypochromasia 1+ Poikilocytosis Not Reportable Anisocytosis Not Reportable Microcytosis Not Reportable Macrocytosis Not Reportable Spherocytes Not Reportable Pappenheimer Bodies Not Reportable Sickle Cells Not Reportable Target Cells 2+ Tear Drop Cells Not Reportable Ovalocytes Not Reportable Helmet Cells Not Reportable [place] Bodies Not Reportable [place] Rings Not Reportable [place] Cells Not Reportable Bite Cells Not Reportable Crenated Cell Not Reportable Elliptocytes Not Reportable Acanthocytes (Spur) Not Reportable Rouleaux Not Reportable Hemoglobin C Crystals Not Reportable Schistocytes Not Reportable Malaria parasites Not Reportable [place] Bodies Not Reportable Hem Pathologist Commnt No PT INR APTT Sodium Potassium Chloride Carbon Dioxide Anion Gap BUN Creatinine Estimated GFR BUN/Creatinine Ratio Glucose Calcium Total Bilirubin AST ALT Alkaline Phosphatase Ammonia Total Protein Albumin Albumin/Globulin Ratio Urine Color Marlena Urine Turbidity Cloudy Urine pH 7.0 Ur Specific [place] 1.015 Urine Protein 100 mg/dl Urine Glucose (UA) Neg Urine Ketones Neg Urine Blood Lg Urine Nitrite Neg Urine Bilirubin Sm Urine Ictotest Positive Urine Urobilinogen 4.0 Ur Leukocyte Esterase Mod Urine WBC (Auto) 82.0 H Urine RBC (Auto) 20.0 U Epithel Cells (Auto) 1.0 Triple Phos Crystals 3+ Amorphous Crystals 1+ Urine Creatinine 93.0 H Urine Sodium 10 07/25/17 07/25/17 07/25/17 04:51 04:51 04:51 WBC RBC Hgb Hct MCV MCH MCHC RDW Plt Count Add Manual Diff Total Counted Seg Neutrophils % Seg Neuts % (Manual) Band Neutrophils % Lymphocytes % (Manual) Reactive Lymphs % (Man) Monocytes % (Manual) Eosinophils % (Manual) Basophils % (Manual) Metamyelocytes % Myelocytes % Promyelocytes % Blast Cells % Nucleated RBC % Seg Neutrophils # Man Band Neutrophils # Lymphocytes # (Manual) Abs React Lymphs (Man) Monocytes # (Manual) Eosinophils # (Manual) Basophils # (Manual) Metamyelocytes # Myelocytes # Promyelocytes # Blast Cells # WBC Morphology Hypersegmented Neuts Hyposegmented Neuts Hypogranular Neuts Smudge Cells Toxic Granulation Toxic Vacuolation Dohle Bodies Pelger-Huet Anomaly Rosalio Rods Platelet Estimate Clumped Platelets Plt Clumps, EDTA Large Platelets Giant Platelets Platelet Satelliting Plt Morphology Comment RBC Morphology Dimorphic RBCs Polychromasia Hypochromasia Poikilocytosis Anisocytosis Microcytosis Macrocytosis Spherocytes Pappenheimer Bodies Sickle Cells Target Cells Tear Drop Cells Ovalocytes Helmet Cells [place] Bodies [place] Rings [place] Cells Bite Cells Crenated Cell Elliptocytes Acanthocytes (Spur) Rouleaux Hemoglobin C Crystals Schistocytes Malaria parasites [place] Bodies Hem Pathologist Commnt PT 88.2 H INR 10.45 H* APTT 82.0 H* Sodium 137 Potassium 4.0 Chloride 98.8 Carbon Dioxide 19 L Anion Gap 23 BUN 122 H Creatinine 2.6 H D Estimated GFR 31 BUN/Creatinine Ratio 46.92 Glucose 94 Calcium 7.7 L Total Bilirubin 16.10 H AST 36 ALT 14 Alkaline Phosphatase 174 H Ammonia 71.0 H Total Protein 7.4 Albumin 2.1 L Albumin/Globulin Ratio 0.4 Urine Color Urine Turbidity Urine pH Ur Specific [place] Urine Protein Urine Glucose (UA) Urine Ketones Urine Blood Urine Nitrite Urine Bilirubin Urine Ictotest Urine Urobilinogen Ur Leukocyte Esterase Urine WBC (Auto) Urine RBC (Auto) U Epithel Cells (Auto) Triple Phos Crystals Amorphous Crystals Urine Creatinine Urine Sodium 07/25/17 10:26 WBC RBC Hgb Hct MCV MCH MCHC RDW Plt Count Add Manual Diff Total Counted Seg Neutrophils % Seg Neuts % (Manual) Band Neutrophils % Lymphocytes % (Manual) Reactive Lymphs % (Man) Monocytes % (Manual) Eosinophils % (Manual) Basophils % (Manual) Metamyelocytes % Myelocytes % Promyelocytes % Blast Cells % Nucleated RBC % Seg Neutrophils # Man Band Neutrophils # Lymphocytes # (Manual) Abs React Lymphs (Man) Monocytes # (Manual) Eosinophils # (Manual) Basophils # (Manual) Metamyelocytes # Myelocytes # Promyelocytes # Blast Cells # WBC Morphology Hypersegmented Neuts Hyposegmented Neuts Hypogranular Neuts Smudge Cells Toxic Granulation Toxic Vacuolation Dohle Bodies Pelger-Huet Anomaly Rosalio Rods Platelet Estimate Clumped Platelets Plt Clumps, EDTA Large Platelets Giant Platelets Platelet Satelliting Plt Morphology Comment RBC Morphology Dimorphic RBCs Polychromasia Hypochromasia Poikilocytosis Anisocytosis Microcytosis Macrocytosis Spherocytes Pappenheimer Bodies Sickle Cells Target Cells Tear Drop Cells Ovalocytes Helmet Cells [place] Bodies [place] Rings David Cells Bite Cells Crenated Cell Elliptocytes Acanthocytes (Spur) Rouleaux Hemoglobin C Crystals Schistocytes Malaria parasites [place] Bodies Hem Pathologist Commnt PT 101.5 H INR 12.47 H* APTT Sodium Potassium Chloride Carbon Dioxide Anion Gap BUN Creatinine Estimated GFR BUN/Creatinine Ratio Glucose Calcium Total Bilirubin AST ALT Alkaline Phosphatase Ammonia Total Protein Albumin Albumin/Globulin Ratio Urine Color Urine Turbidity Urine pH Ur Specific [place] Urine Protein Urine Glucose (UA) Urine Ketones Urine Blood Urine Nitrite Urine Bilirubin Urine Ictotest Urine Urobilinogen Ur Leukocyte Esterase Urine WBC (Auto) Urine RBC (Auto) U Epithel Cells (Auto) Triple Phos Crystals Amorphous Crystals Urine Creatinine Urine Sodium
[2017-07-25] MEDS ORDERED: VITAMIN K (ADULT ONLY) 10 MG in NACL 0.9% 50 ML IV ONE (17:20)
[2017-07-25] MEDS: LEVOPHED DRIP 4 MG/NS 250 ML 4 MG/250 ML BAG IV SCH (18:05)
--- NOTE | 2017-07-25 18:11 | Event Note ---
Date: 07/25/17 Sp[address] with ER physician Dr. Kilgore, he will place the central line to start the pressor.
[2017-07-25] MEDS: LASIX IV SCH (18:12)
--- NOTE | 2017-07-25 19:15 | Procedure Note ---
Date of procedure: 07/25/17 Pre-op diagnosis: hepatic failure Post-op diagnosis: same Procedure: Placed central line procedure was emergent. A time-out was completed verifying correct patient, procedure, site, positioning , and special equipment if applicable. The patient was placed in a dependent position appropriate for central line placement based on the vein to be cannulated. The patients left groin was prepped and draped in sterile fashion. 1 % Lidocaine was used to anesthetize the surrounding skin area. A triple lumen 16 cm 9-FrenchCordis catheter was introduced into the the common femoral vein using the Seldinger technique and under ultrasound guidance. The catheter was threaded smoothly over the guide wire and appropriate blood return was obtained. Each lumen of the catheter was evacuated of air and flushed with sterile saline. The catheter was then sutured in place to the skin and a sterile dressing applied. Perfusion to the extremity distal to the point of catheter insertion was checked and found to be adequate. Estimated Blood Loss:10 ccs The patient tolerated the procedure well and there were no complications. Anesthesia: none Surgeon: RADHA ESTRADA Pathology: none Condition: critical Disposition: ICU
[2017-07-26] MEDS: CEPHULAC PO SCH ×3 (00:42→12:22)
[2017-07-26] MEDS: PROAMATINE PO SCH ×3 (00:47→15:59)
[2017-07-26] MEDS: SODIUM BICARBONATE PO SCH ×3 (00:53→15:59)
[2017-07-26] MEDS: LEVOPHED DRIP 4 MG/NS 250 ML 4 MG/250 ML BAG IV SCH ×2 (04:19→13:29)
[2017-07-26] MEDS: D5NS 1,000 ML IV SCH (06:29)
[2017-07-26 06:58] LABS: Hemoglobin 9.4 gm/dl (11.8-15.2); Mean Corpuscular HGB Conc 35 % (32-34); Mean Corpuscular Hemoglobin 31 pg (28-32); Mean Corpuscular Volume 90 fl (84-94); White Blood Count 16.6 K/mm3 (4.5-11.0)
[2017-07-26 07:07] LABS: Platelet Count 41 K/mm3 (140-440)
[2017-07-26 07:26] LABS: Albumin 1.8 g/dL (3.9-5); Albumin/Globulin Ratio 0.4 %; Chloride 107.3 mmol/L (98-107); Potassium 3.4 mmol/L (3.6-5.0); Total Protein 6.4 g/dL (6.3-8.2)
[2017-07-26 07:29] LABS: Calcium 5.9 mg/dL (8.4-10.2)
[2017-07-26 07:32] LABS: BUN/Creatinine Ratio 40.74
[2017-07-26 09:17] LABS: INR 3.66 (0.87-1.13)
[2017-07-26] MEDS: PEPCID PO SCH (09:30)
[2017-07-26] MEDS: XIFAXAN PO SCH (09:30)
--- NOTE | 2017-07-26 10:35 | Progress Note ---
Assessment and Plan - Patient Problems (1) KENNA (acute kidney injury) Status: Acute Plan to address problem: Acute kidney injury in the setting of hypotension, CHF and advanced Cirrhosis. Suspected Hepato-renal syndrome. Renal function is declining. Renal prognosis is guarded. No family member available at this time. (2) Hyperkalemia Status: Acute Plan to address problem: Improved. Monitor potassium level. (3) Metabolic acidosis Status: Acute Plan to address problem: Continue Sodium bicarbonate. (4) Hypotension Status: Acute Qualifiers: Hypotension type: H Trimester: T Plan to address problem: Monitor BP. Increase Midodrine and Dobutamine. (5) CHF (congestive heart failure) Status: Chronic Qualifiers: Congestive heart failure type: C Congestive heart failure chronicity: C Plan to address problem: Followed by Cards. (6) Jaundice Status: Acute Subjective Date of service: 07/26/17 Principal diagnosis: Elevated BR, Acute on chronic SHF, CMP, Pericardial effusion, Perm Afib Interval history: Patient was transferred to ICU. Objective - Vital Signs Vital signs: Vital Signs - 12hr 07/25/17 07/25/17 07/25/17 22:45 23:01 23:15 Temperature Pulse Rate 67 75 79 Pulse Rate [ Apical] Respiratory 11 L 27 H 19 Rate Blood Pressure 100/63 94/67 103/65 O2 Sat by Pulse 91 92 96 Oximetry 07/25/17 07/25/17 07/25/17 23:16 23:30 23:45 Temperature 97.8 F Pulse Rate 74 68 Pulse Rate [ Apical] Respiratory 17 18 Rate Blood Pressure 108/67 107/72 O2 Sat by Pulse 95 89 Oximetry 07/26/17 07/26/17 07/26/17 00:00 00:15 00:31 Temperature Pulse Rate 66 61 57 L Pulse Rate [ Apical] Respiratory 12 12 11 L Rate Blood Pressure 111/66 111/66 94/66 O2 Sat by Pulse 90 91 Oximetry 07/26/17 07/26/17 07/26/17 00:45 01:00 01:05 Temperature Pulse Rate 76 71 Pulse Rate [ 81 Apical] Respiratory 18 15 27 H Rate Blood Pressure 102/65 95/63 O2 Sat by Pulse 95 92 97 Oximetry 07/26/17 07/26/17 07/26/17 01:15 01:30 01:45 Temperature Pulse Rate 76 67 65 Pulse Rate [ Apical] Respiratory 20 15 13 Rate Blood Pressure 95/63 98/70 102/64 O2 Sat by Pulse 95 91 91 Oximetry 07/26/17 07/26/17 07/26/17 02:00 02:15 02:30 Temperature Pulse Rate 64 66 Pulse Rate [ Apical] Respiratory 15 12 11 L Rate Blood Pressure 99/63 102/64 101/67 O2 Sat by Pulse 87 91 89 Oximetry 07/26/17 07/26/17 07/26/17 02:45 03:00 03:15 Temperature Pulse Rate 69 65 73 Pulse Rate [ Apical] Respiratory 16 13 22 Rate Blood Pressure 100/67 100/67 100/72 O2 Sat by Pulse 92 92 96 Oximetry 07/26/17 07/26/17 07/26/17 03:30 03:31 03:45 Temperature 97.4 F L Pulse Rate 57 L 66 Pulse Rate [ Apical] Respiratory 14 20 Rate Blood Pressure 105/66 111/68 O2 Sat by Pulse 90 88 Oximetry 07/26/17 07/26/17 07/26/17 04:00 04:15 04:30 Temperature Pulse Rate 71 72 61 Pulse Rate [ Apical] Respiratory 21 22 11 L Rate Blood Pressure 105/70 105/73 102/67 O2 Sat by Pulse 91 93 94 Oximetry 07/26/17 07/26/17 07/26/17 04:45 05:00 05:15 Temperature Pulse Rate 61 67 Pulse Rate [ 89 Apical] Respiratory 11 L 21 22 Rate Blood Pressure 102/66 100/68 100/68 O2 Sat by Pulse 91 92 96 Oximetry 07/26/17 07/26/17 07/26/17 05:31 05:45 06:00 Temperature Pulse Rate 68 66 62 Pulse Rate [ Apical] Respiratory 25 H 20 12 Rate Blood Pressure 102/66 102/66 92/63 O2 Sat by Pulse 96 93 Oximetry 07/26/17 07/26/17 07/26/17 06:15 06:31 06:45 Temperature Pulse Rate 67 69 65 Pulse Rate [ Apical] Respiratory 15 19 18 Rate Blood Pressure 92/63 96/68 104/77 O2 Sat by Pulse 94 98 98 Oximetry 07/26/17 07/26/17 07/26/17 07:01 07:15 07:31 Temperature Pulse Rate 73 61 54 L Pulse Rate [ Apical] Respiratory 19 13 11 L Rate Blood Pressure 104/76 104/76 111/67 O2 Sat by Pulse 96 96 97 Oximetry 07/26/17 07/26/17 07/26/17 07:42 07:45 08:00 Temperature 97.3 F L Pulse Rate 64 Pulse Rate [ Apical] Respiratory 23 Rate Blood Pressure 110/75 O2 Sat by Pulse 100 97 Oximetry 07/26/17 07/26/17 08:01 08:15 Temperature Pulse Rate 61 54 L Pulse Rate [ Apical] Respiratory 20 12 Rate Blood Pressure 96/59 96/59 O2 Sat by Pulse 95 98 Oximetry - General Appearance General appearance: well-developed, appears stated age, other (somnolent) EENT: ATNC, PERRL, hearing intact Neck: supple Respiratory: Present: Rales Cardiology: regular, S1S2, no murmurs Gastrointestinal: normoactive bowel sounds, no tenderness Integumentary: no rash, chronic venous stasis Neurologic: other (able to move all 4 extremities) Musculoskeletal: other (1+ edema of both LEs noted) Psychiatric: cooperative - Lab 07/26/17 05:00 07/26/17 05:00 Most recent lab results Calcium 5.9 mg/dL (8.4-10.2) L* D 07/26/17 05:00 Urine Creatinine 93.0 mg/dL (0.1-20.0) H 07/25/17 02:23 Urine Sodium 10 mEq/L 07/25/17 02:23
--- NOTE | 2017-07-26 10:38 | Event Note ---
Date: 07/26/17 The pt is a 56 YO male with a past medical history significant for atrial fibrillation (anticoagulated with coumadin), CMP, AICD in situ and HTN. Pt is a prisoner and presented from [facility] following INR check which showed INR ~9. On evaluation, pt denies any cardiac complaints. Pt denies any overt signs of bleeding. H/H 10.2/29.5. Total bilirubin noted to be 10.3 and pt noted to be jaundiced; AST and ALT WNL. 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 CXR shows cardiomegaly with mild central venous congestion and single chamber AICD. Patient was admitted and was being treated on the telemetry floor. Was transferred to the ICU for worsening hypotension requiring vasopressor support and worsening leukocytosis with encephalopathy. Differentials include septic shock/cardiogenic shock. Patient was seen and examined this morning. Vitals, labs, medications, chart reviewed. Blood cultures positive for MRSA- currently on vancomycin. He has a groin CVC catheter. PHYSICAL EXAMINATION Awake, somnolent but obeys commands, non-focal neurology Chest: Good AE bilaterally, chest wall device CVS: Irregular rate and rhythm, S1,S2, systolic murmur ABD: Soft, non-tender, BS in all 4 quadrants EXT: Chronic venous stasis changes, lichenification of the skin, groin CVC Neuro: Non-focal, obeys one step commands DIAGNOSIS Septic shock secondary to MRSA Supratherapeutic INR - INR 6.7 at admission-->currently 12.47 with no s/s overt bleeding. Atrial fibrillation with CVR Cardiomyopathy EF 20% AICD in situ H/o HTN - with borderline hypotension since admission. Anemia KENNA- possibly hepato-renal syndrome Hyperbilirubinemia / jaundice Hypocalcemia Hyponatremia Hypoalbuminemia Chronic venous insufficiency PLAN Antibiotics Gentle volume Wean vasopressor support for MAP>60 Aspiration precautions Nutrition and wound consults Continue cardio-protective measures Monitor for bleeding SCDs Discussed extensively during interdisciplinary rounds Discussed with hospitalist group Plan is to transfer to [facility] Cardioprotective measures Correct electrolytes
[2017-07-26] MEDS ORDERED: CALCIUM GLUCONATE 1,000 MG in NACL 0.9% 100 ML IV ONE (11:30)
[2017-07-26] MEDS ORDERED: VANCOMYCIN 1,750 MG in NACL 0.9% 500 ML 500 ML IV SCH (11:45)
--- NOTE | 2017-07-26 11:52 | Gastroenterology Progress Note ---
Assessment and Plan - Patient Problems (1) Coumadin toxicity Current Visit: Yes Status: Acute Qualifiers: Encounter type: E Injury intent: I (2) Elevated BUN Current Visit: Yes Status: Acute (3) Jaundice Current Visit: Yes Status: Acute (4) Cirrhosis Current Visit: Yes Status: Acute Qualifiers: Hepatic cirrhosis type: H Ascites presence: A Plan to address problem: Advanced cirrhosis, likely cardiac in origin. Progessive jaundice. More alert. PSE improved. Concerned that he may have hepatorenal syndrome, which is a very poor prognostic event. (5) CHF (congestive heart failure) Current Visit: Yes Status: Chronic Qualifiers: Congestive heart failure type: C Congestive heart failure chronicity: C Plan to address problem: Patient reports he is being transferred to [facility] for evaluation by a transplant surgeon. Subjective Date of service: 07/26/17 Principal diagnosis: liver failure, cardiac cirrhosis Interval history: The patient denies pain although feels very weak Objective - Constitutional Vitals: Temp Pulse Resp BP Pulse Ox 97.3 F L 61 15 110/58 97 07/26/17 08:00 07/26/17 10:31 07/26/17 10:31 07/26/17 10:31 07/26/17 10:31 General appearance: mild distress - EENT Eyes: scleral icterus ENT: clear oral mucosa - Neck Neck: supple, normal ROM - Respiratory Respiratory effort: normal Respiratory: bilateral: CTA - Cardiovascular Rhythm: regular - Gastrointestinal General gastrointestinal: Present: soft, non-tender, non-distended, normal bowel sounds - Neurologic Neurological: oriented to person, oriented to place, generalized weakness - Labs CBC & Chem 7: 07/26/17 05:00 07/26/17 05:00 Labs: Laboratory Results - last 24 hr 07/25/17 07/26/17 07/26/17 18:47 04:59 05:00 WBC 16.6 H RBC 3.00 L Hgb 9.4 L Hct 27.0 L MCV 90 MCH 31 MCHC 35 H RDW 19.0 H Plt Count 41 L PT INR Sodium Potassium Chloride Carbon Dioxide Anion Gap BUN Creatinine Estimated GFR BUN/Creatinine Ratio Glucose POC Glucose 96 123 H Calcium Total Bilirubin AST ALT Alkaline Phosphatase Total Protein Albumin Albumin/Globulin Ratio 07/26/17 07/26/17 05:00 08:30 WBC RBC Hgb Hct MCV MCH MCHC RDW Plt Count PT 38.4 H INR 3.66 H Sodium 141 Potassium 3.4 L Chloride 107.3 H Carbon Dioxide 15 L Anion Gap 22 BUN 110 H Creatinine 2.7 H Estimated GFR 30 BUN/Creatinine Ratio 40.74 Glucose 121 H POC Glucose Calcium 5.9 L* D Total Bilirubin 15.00 H AST 28 ALT 11 Alkaline Phosphatase 135 H Total Protein 6.4 Albumin 1.8 L Albumin/Globulin Ratio 0.4
[2017-07-26] MEDS ORDERED: VANCOMYCIN PHARMACY TO DOSE IV SCH (12:00)
--- NOTE | 2017-07-26 12:13 | Progress Note ---
Assessment and Plan Assessment: Acute systolic heart failure Septic shock / MRSA bacteremia Cardiomyopathy - EF 20% AICD in situ Hyperbilirubinemia / jaundice / cirrhosis - ? hepatorenal syndrome Coagulopathy - INR 6.7 at admission with peak INR 12.47. Acute renal failure Atrial fibrillation with CVR H/o HTN - now with hypotension requiring vasopressor support Anemia Hypocalcemia Hyponatremia Hypoalbuminemia Chronic venous insufficiency Plan: Cont present supportive management. Poor prognosis. Possible tx to [facility] for further GI evaluation/management and/or ? transplant. The patient has been seen in conjunction with Dr. Cordon who agrees with the assessment and plan of care. Subjective Date of service: 07/26/17 Principal diagnosis: liver failure, cardiac cirrhosis Interval history: Pt resting in bed, lethargic. Was tx to ICU overnight d/t hypotension requiring vasopressor support. Levophed infusing. Objective Last Vital Signs Temp 97.3 F L 07/26/17 08:00 Pulse 61 07/26/17 10:31 Resp 15 07/26/17 10:31 BP 110/58 07/26/17 10:31 Pulse Ox 97 07/26/17 10:31 - Physical Examination General: Other (appears uncomfortable) HEENT: Positive: EOMI, Normocephaly, Mucus Membranes Moist, Other (icteric sclera) Neck: Positive: neck supple, trachea midline, JVD/HJR (elevated) Cardiac: Positive: irregularly irregular, S1/S2 Lungs: Positive: Decreased Breath Sounds Neuro: Positive: Other (lethargic) Abdomen: Positive: Soft, Active Bowel Sounds. Negative: Tender Skin: Positive: Other (BLE stasis dermatitis) Musculoskeletal: Normal Range of Motion Extremities: Present: +3 Edema (BLEs, chronic skin changes) - Labs and Meds Cardiac Enzymes 07/26/17 Range/Units 05:00 AST 28 (5-40) units/L Coagulation 07/26/17 Range/Units 08:30 PT 38.4 H (12.2-14.9) Sec. INR 3.66 H (0.87-1.13) CBC 07/26/17 Range/Units 05:00 WBC 16.6 H (4.5-11.0) K/mm3 RBC 3.00 L (3.65-5.03) M/mm3 Hgb 9.4 L (11.8-15.2) gm/dl Hct 27.0 L (35.5-45.6) % Plt Count 41 L (140-440) K/mm3 Comprehensive Metabolic Panel 07/26/17 Range/Units 05:00 Sodium 141 (137-145) mmol/L Potassium 3.4 L (3.6-5.0) mmol/L Chloride 107.3 H (98-107) mmol/L Carbon Dioxide 15 L (22-30) mmol/L BUN 110 H (9-20) mg/dL Creatinine 2.7 H (0.8-1.5) mg/dL Glucose 121 H (75-100) mg/dL Calcium 5.9 L* D (8.4-10.2) mg/dL AST 28 (5-40) units/L ALT 11 (7-56) units/L Alkaline Phosphatase 135 H (35-129) units/L Total Protein 6.4 (6.3-8.2) g/dL Albumin 1.8 L (3.9-5) g/dL - Imaging and Cardiology EKG: image reviewed Echo: report reviewed (06/2017: EF 20%, severe MR, severe TR, moderate pericardial effusion )
[2017-07-26] MEDS ORDERED: LACTATED RINGERS 1,000 ML IV SCH (13:00)
[2017-07-26] MEDS: LASIX IV SCH (13:32)
--- NOTE | 2017-07-26 14:11 | Discharge Summary ---
Providers - Providers Date of Admission: 07/19/17 14:36 Date of discharge: 07/26/17 Attending physician: CHU COLLINS 07/20/17 06:09 Consult to Wound/ET Nurse [CONS] Routine Reason For Exam: wound eval , rt elbow stage 2 pressure ulcer 07/20/17 09:06 Consult to Physician [CONS] Routine Consulting Provider: LISA LOZA Reason For Exam: Hyperbilirubinemia Place consult to:: Binta lauren Notified:: Keith CARMEN Was contact made?: Yes If yes, spoke with:: Dr. Loza Time called:: 09:30 07/22/17 08:53 Consult to Physician [CONS] Routine Consulting Provider: FRANCESCO HAYNES Reason For Exam: KENNA Place consult to:: jeanne Notified:: yes Was contact made?: Yes If yes, spoke with:: Dr haynes Time called:: 10:26 07/25/17 03:28 Consult to Wound/ET Nurse [CONS] Routine Reason For Exam: wound eval 07/25/17 17:25 Consult to Physician [CONS] Routine Consulting Provider: ROSALIND BARRIENTOS Reason For Exam: sepsis Place consult to:: manager concrete critical care Notified:: yes Phone number called:: [phone] Was contact made?: Yes If yes, spoke with:: left message on [employer] Time called:: 08:03 Comment:: spoke with [employer] service and was told to call this number 07/25/17 17:27 Consult to Physician [CONS] Routine Consulting Provider: Reason For Exam: central line placement Place consult to:: vascular surgeon Primary care physician: SOCIAL WORKER Hospitalization Condition: Stable Hospital course: The patient is a 56 YO male with a past medical history significant for atrial fibrillation (anticoagulated with coumadin), CMP, AICD in situ and HTN, who is a prisoner and presented from [facility] following INR check which showed INR ~9. Patient denied any cardiac complaints and any overt signs of bleeding. On admission H/H was 10.2/29.5 and Total bilirubin noted to be 10.3, INR 6.7, AST and ALT WNL. Patient reported a history of "weak heart" for which an AICD was placed in [facility] in 2014. CXR showed cardiomegaly with mild central venous congestion and single chamber AICD. His hepatitis pannel was negative. Abdominal US showed hepatic congestion with hepatomegaly. He was progressively getting lethergic and renal function was also declining. GI , cardiology and nephrology was following him. he received 2 units of FFP and 10mg Vit K iv. His was hypotensive and was placed on dobutamin drip with no positive outcome. He was then placed on midodrine. His blood cx was positive for MRSA and placed on vancomycin. He was transferred to ICU. Multiple discussion was made with [facility] rn medical surgical and fci management wine bottle inspector. Patient's milk wagon driver wanted the patient to be transferred to [place]. Patient was transferred to [place] under care of Dr Dennison. 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 fib on anticoagulation - held Coumadin because of Coumadin toxicity/liver failure Coagulopathy - elevated INR - s/p transfusion of 2 units FFP Acute on Chronic combined heart failure - Echo showed EF of 20-25%, with diastolic dysfunction - ICD on place, s/p dobutamin drip Cardio-renal syndrome VS Hepatorenal syndrome - nephrology following - Cr continue to trend up Hyperbilirubinemia with hepatomegaly secondary to acute liver failure - Ultrasound showed hepatomegaly - negative hepatitis panel - likely from hepatic congestion from HF Septic shock - was given bolus of fluid and transfer to ICU on 07/25/17 - placed on levophed to keep Map >65 Sepsis with bacteremia - blood cx growing ARNDT - started on vancomycin on 07/25/17 Venous stasis ulcer - Supportive care DVT prophylaxis - Mechanical Disposition - [place] Prognosis - Guarded Disposition: [id number]/TX-[id number] ANOTHER TYPE HLTHCARE Time spent for discharge: 45 minutes Core Measure Documentation - Palliative Care Palliative Care/ Comfort Measures: Not Applicable - Core Measures Any of the following diagnoses?: heart failure - Heart Failure Discharge Requirements MECLHOR/ARB for LVSD if EF <40%: No Reason for no MELCHOR/ARB: Hypotension Reason for no beta lazaro on DC: Hypotension Exam - Physical Exam Narrative exam: General: Other (appears uncomfortable) HEENT: Positive: EOMI, Normocephaly, Mucus Membranes Moist, Other (icteric sclera) Neck: Positive: neck supple, trachea midline, JVD/HJR (elevated) Cardiac: Positive: irregularly irregular, S1/S2 Lungs: Positive: Decreased Breath Sounds Neuro: Positive: Other (lethargic) Abdomen: Positive: Soft, Active Bowel Sounds. Negative: Tender Skin: Positive: Other (BLE stasis dermatitis) Musculoskeletal: Normal Range of Motion Extremities: Present: +3 Edema (BLEs, chronic skin changes) - Constitutional Vitals: Temp Pulse Resp BP Pulse Ox 97.3 F L 61 15 110/58 97 07/26/17 08:00 07/26/17 10:31 07/26/17 10:31 07/26/17 10:31 07/26/17 10:31 Plan Activity: other (bedrest) Diet: renal Follow up with: PRIMARY CARE, [Primary Care Provider] - 7 Days Prescriptions: Vancomycin/0.9 % Sod Chloride [Vancomycin 1 G/200Ml-0.9% NaCl] 1 gm IV BID #14 albina
[2017-07-26 15:29] VITALS: BP 117/72
== END 2017-07-26 15:15 | disposition short-term general hospital (02) | DRG 871 ==
LOC: ED 11:45 → 4A 14:36 → CC1 07-25 17:53
PROVIDERS: ADMIT Internal Medicine; ATTEND Internal Medicine
PROC: 3E0234Z Introduction of Serum, Toxoid and Vaccine into Muscle, Percutaneous Approach (ICD-10-PCS; principal; 2017-07-21)
PROC: 30233L1 Transfusion of Nonautologous Fresh Plasma into Peripheral Vein, Percutaneous Approach (ICD-10-PCS; 2017-07-25)
PROC: 30233K1 Transfusion of Nonautologous Frozen Plasma into Peripheral Vein, Percutaneous Approach (ICD-10-PCS; 2017-07-25)
PROC: 02HV33Z Insertion of Infusion Device into Superior Vena Cava, Percutaneous Approach (ICD-10-PCS; 2017-07-25)
DX: A41.9 Sepsis, unspecified organism (principal); R65.21 Severe sepsis with septic shock; I50.43 Acute on chronic combined systolic (congestive) and diastolic (congestive) heart failure; E87.1 Hypo-osmolality and hyponatremia; I42.9 Cardiomyopathy, unspecified; N17.9 Acute kidney failure, unspecified; I31.3 Pericardial effusion (noninflammatory); K72.90 Hepatic failure, unspecified without coma; T45.515A Adverse effect of anticoagulants, initial encounter; I95.9 Hypotension, unspecified; E88.09 Other disorders of plasma-protein metabolism, not elsewhere classified; E83.51 Hypocalcemia; D64.9 Anemia, unspecified; I11.0 Hypertensive heart disease with heart failure; K74.60 Unspecified cirrhosis of liver; I83.009 Varicose veins of unspecified lower extremity with ulcer of unspecified site; I08.1 Rheumatic disorders of both mitral and tricuspid valves; I48.2 Chronic atrial fibrillation; Z23 Encounter for immunization; Y92.89 Other specified places as the place of occurrence of the external cause; Z95.810 Presence of automatic (implantable) cardiac defibrillator; Z82.49 Family history of ischemic heart disease and other diseases of the circulatory system
CPT/HCPCS: 36415; 70450; 71010; 76700; 80048; 80053; 80061; 80074; 81001; 82106; 82140; 82248; 82550; 82553; 82570; 82962; 83010; 83520; 83615; 83880; 84300; 84484; 85007; 85025; 85027; 85045; 85610; 85730; 86038; 86235; 86403; 86850; 86900; 86901; 87040; 90686; 90732; 93005; 93010; 93306; 94640; 94760; J0610; J1250; J1940; J3370; J3430; J7040; J7042; J7050; P9017